=== PATIENT | female | born 2000 | race Caucasian/White ===

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

== ENCOUNTER → 2019-11-11 17:35 | Outpatient (CLI) | payer OTHER, SELFPAY ==
[2019-11-11 13:46] VITALS: BMI 36.5
[2019-11-16 14:53] LABS: HPV Reflexed? NOT INDICATED
== END ==
PROVIDERS: PCP Nurse Practitioner Family; Referring Provider Obstetrics & Gynecology; Visit Provider Obstetrics & Gynecology
DX: Z12.4 Encounter for screening for malignant neoplasm of cervix (principal)
CPT/HCPCS: 88175; G0145

== ENCOUNTER → 2019-11-12 12:44 | Outpatient (CLI) | payer OTHER, SELFPAY ==
[2019-11-11 13:46] VITALS: BMI 36.5
[2019-11-12 13:51] LABS: Estradiol 61.7 pg/mL; Follicle Stimulating Hormone 5.2 mIU/mL
[2019-11-16 14:32] LABS: Testosterone Free 6.7 pg/mL (0.0-4.2)
[2019-11-17 03:18] LABS: 17-Hydroxyprogesterone 65 ng/dL (.)
== END ==
PROVIDERS: PCP Nurse Practitioner Family; Referring Provider Obstetrics & Gynecology; Visit Provider Obstetrics & Gynecology
DX: E28.2 Polycystic ovarian syndrome (principal)
CPT/HCPCS: 36415; 82627; 82670; 83001; 83498; 84402; 82626

== ENCOUNTER → 2022-04-03 | Outpatient (CLI) | payer OTHER, SELFPAY ==
[2022-04-03 11:41] LABS: Hemoglobin A1c 5.1 % (3.8-5.6)
[2022-04-03 11:57] LABS: ALB/GLOB Ratio 0.8 RATIO (0.9-2.4); AST(SGOT) 22 U/L (15-37); Alanine Aminotransfer ALT/SGPT 30 U/L (13-56); Albumin, Serum 3.3 g/dL (3.2-5.0); Alkaline Phosphatase 123 U/L (45-117); Anion Gap 6 (5-15); BUN 11 mg/dL (7-18); BUN/Creat Ratio 12.4 RATIO (10-20); Chloride 105 mmol/L (98-107); Creatinine, Serum 0.89 mg/dL (0.55-1.02); EST Glomerular Filtration Rate 83 mL/min (>60); Est Glom Filt Rate - Afr Amer 100 mL/min (>60); Globulin 4.3 g/dL (2.2-4.2); Glucose 98 mg/dL (74-106); Potassium 3.8 mmol/L (3.5-5.1); Protein, Total 7.6 g/dL (6.4-8.2); Sodium Level 137 mmol/L (136-145)
[2022-04-03 11:58] LABS: Vitamin D,25 Hydroxy 30.8 ng/mL
== END | disposition home or self-care (01) ==
PROVIDERS: Referring Provider Registered Nurse; Visit Provider Registered Nurse
DX: Z13.21 Encounter for screening for nutritional disorder (principal); L68.0 Hirsutism
CPT/HCPCS: 36415; 80053; 82306; 83036

== ENCOUNTER → 2023-04-04 | Outpatient (CLI) | payer OTHER, SELFPAY ==
--- OUTSIDE RECORDS SUMMARY | 2023-04-04 11:21 | XMS RPT_ITS | CCD ---
Author Name Unknown Address [address] [place] [id number] Organization [facility] Results Test Name Value Interpretation Reference Range Facil ity Clinical Note 12-14-2020 Note Date & Type Note Facility 12-14-2020 Note Patient Outreach (MARKIE TNFISH) SE JEFFERS ([id number]) 2000 F Date Time Provider Department 12/14/20 STACY OLIEVR During your visit today, we recorded the following information about you: Stacy Oliver Population Health Navigator 12/14/2020 8:42 AM Signed POPULATION HEALTH NAVIGATION OUTREACH Action/FYI I spoke with mom patient is at [facility] in [place] No care everywhwere Contact made with patient or family member? YES Pt identified by name and : YES Outreach Outcome/Action Spoke to patient or caregiver: PCP confirmed / updated Reason for Outreach Attribution: Provider Off-boarding Payer: Payor: [facility] / Plan: [facility] CHOICE PLUS / Product Type: HMO / Care Gap Reviewed:: Reminder: Reminder note to check Health Maintenance for items below Health Maintenance items due: DEPRESSION SCREENING Never done COVID-19 VACCINE(1) Never done SPIROMETRY Never done GC (GONORRHEA) SCREENING (18-24) Never done HEPATITIS C SCREENING Never done CHLAMYDIA SCREENING (18-24) Never done ONE PNEUMOVAX PRIOR TO AGE 65 Never done ANNUAL PCP TEAM CHRONIC DISEASE VISIT due on 10/10/2020 INFLUENZA(1) due on 12/06/2020 Advanced Directives Completed: Have you ever planned for future healthcare decisions with a power of deputy attorney general, living will, or advance directives? No. Please bring a copy to your next appointment or email to [email or web address] Referrals: N/A Message Sent to Practice: NO Navigation Signature: Stacy Magdaleno Oliver Population Health Navigator December 14, 2020 8:41 AM Allergies As of Date: 12/14/2020 Noted Allergy Reaction BIAXIN (CLARITHROMYCIN) 07/09/2005 2 - Rash MOLD 07/09/2005 3 - Cough Comments: Wheezing/coughing per Mom ANIMAL DANDER 02/18/2012 14 - Other: See Comments Comments: Horses, cows,cats, hamsters, feathered animals DUST 02/18/2012 14 - Other: See Comments IBUPROFEN 07/01/2005 11 - Vomiting PENICILLINS 07/01/2005 2 - Rash TREES 02/18/2012 14 - Other: See Comments HAMSTER PROTEIN 07/09/2005 3 - Cough Comments: Wheezing per Mom Date Reviewed: 10/11/2019 Reviewed by: Radha Hinson - Fully Assessed Reason for Visit: Population Health Navigation Outreach [[id number]] Cmt: Offboarding Prescriptions as of 12/14/2020 - metFORMIN ER (GLUCOPHAGE XR) 500 mg 24 hr tablet Take 2 tablets by mouth daily with breakfast. - MULTI-VITAMIN ORAL Take 1 tablet by mouth once daily. - albuterol (PROVENTIL) 2.5 mg /3 mL (0.083 %) nebulizer solution Use 3 mL via nebulizer every 4 hours as needed for Wheezing/Shortness of Breath. Use over 5-15minutes. - Drospirenone-Ethinyl Estradiol (DIANE, 28,) 3-0.02 mg per tablet Take 1 tablet by mouth once daily. - topiramate (TOPAMAX) 25 mg capsule TAKE 1 CAPSULE EVERY MORNING AND 2 CAPSULES EVERY EVENING - montelukast (SINGULAIR) 10 mg tablet Take 1 tablet by mouth daily at bedtime. - albuterol HFA (PROVENTIL HFA, VENTOLIN HFA) 90 mcg/actuation inhaler Inhale 2 Puffs as instructed every 6 hours as needed for Wheezing/Shortness of Breath. - spironolactone (ALDACTONE) 100 mg tablet Take 100 mg by mouth once daily. 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 Author Type: ? Type: Progress Notes Filed: 12/14/2020 8:42 AM Note Text: POPULATION HEALTH NAVIGATION OUTREACH Action/FYI I spoke with mom patient is at [facility] No care everywhwere Contact made with patient or family member? YES Pt identified by name and : YES Outreach Outcome/Action Spoke to patient or caregiver: PCP confirmed / updated Reason for Outreach Attribution: Provider Off-boarding Payer: Payor: [facility] / Plan: [facility] CHOICE PLUS / Product Type: HMO / Care Gap Reviewed:: Reminder: Reminder note to check Health Maintenance for items below Health Maintenance items due: DEPRESSION SCREENING Never done COVID-19 VACCINE(1) Never done SPIROMETRY Never done GC (GONORRHEA) SCREENING (18-24) Never done HEPATITIS C SCREENING Never done CHLAMYDIA SCREENING (18-24) Never done ONE PNEUMOVAX PRIOR TO AGE 65 Never done ANNUAL PCP TEAM CHRONIC DISEASE VISIT due on 10/10/2020 INFLUENZA(1) due on 12/06/2020 Advanced Directives Completed: Have you ever planned for future healthcare decisions with a power of deputy attorney general, living will, or advance directives? No. Please bring a copy to your next appointment or email to Referrals: N/A Message Sent to Practice: NO Navigation Signature: Stacy Oliver Population Health Navigator December 14, 2020 8:41 AM [facility] Summary Purpose Family History No Family History Records FoundNo Family History Records Found Advance Directives No Advanced Directives Records FoundNo Advanced Directives Records Found Additional Source Comments INFORMATION SOURCE (unrecogn ized section and content) DATE CREATED AUTHOR AUTHOR'S ORGANIZ ATION 05/08/2021 [facility] FOR RECORDS PERTAINING TO PATIENTS WHO ARE OR HAVE BEEN ENROLLED IN A CHEMICAL DEPENDENCY/SUBSTANCEABUSE PROGRAM, SOME INFORMATION MAY BE OMITTED. This clinical summary was aggregated from multiple sources. Caution should be exercised in using it in the provision of clinical care. This summary normalizes information from multiple sources, and as a consequence, information in this document may materially change the coding, format and clinical context of patient data. In addition, data may be omitted in some cases. CLINICAL DECISIONS SHOULD BE BASED ON THE PRIMARY CLINICAL RECORDS. [email or web address] provides no warranty or guarantee of the accuracy or completeness of information in this document.
[2023-04-04 11:59] LABS: Anion Gap 3 (5-15); BUN 16 mg/dL (7-18); BUN/Creat Ratio 16.6 RATIO (10-20); Calcium,Total 9.4 mg/dL (8.5-10.1); Chloride 104 mmol/L (98-107); Creatinine, Serum 0.96 mg/dL (0.55-1.02); EST Glomerular Filtration Rate 75 mL/min (>60); Est Glom Filt Rate - Afr Amer 91 mL/min (>60); Glucose 107 mg/dL (74-106); Potassium 4.7 mmol/L (3.5-5.1); Sodium Level 135 mmol/L (136-145); T4 Free Direct 1.27 ng/dL (0.76-1.46); Thyroid Stim Hormone (TSH) 2.78 uIU/mL (0.358-3.74)
[2023-04-10 19:48] LABS: HPV Reflexed? NOT INDICATED
== END | disposition home or self-care (01) ==
PROVIDERS: Referring Provider Registered Nurse; Visit Provider Registered Nurse
DX: Z12.4 Encounter for screening for malignant neoplasm of cervix (principal); E66.9 Obesity, unspecified; L68.0 Hirsutism
CPT/HCPCS: 36415; 80048; 84439; 84443; 88175; G0145

== ENCOUNTER 2025-03-30 09:10 | Emergency (ER) | payer OTHER, SELFPAY ==
[2025-03-30] VITALS (7 sets, daily range): BP systolic 101–147; BP diastolic 72–86; PULSE 84–142; RESP 16–27; TEMP 36.8–37.6; O2SAT 96–98; BMI 46.3
--- NOTE | 2025-03-30 09:24 | EKG12_ITS ---
Test Reason : Blood Pressure : */* mmHG Vent. Rate : 107 BPM Atrial Rate : 107 BPM P-R Int : 138 ms QRS Dur : 66 ms QT Int : 326 ms P-R-T Axes : 43 24 -56 degrees QTcB Int : 435 ms Sinus tachycardia Nonspecific T wave abnormality Abnormal ECG Confirmed by Blake Mcgrath ([id number]), editor continuity and script FINESSE DOMINGUEZ ([id number]) on 04/01/2025 8:03:57 AM Referred By: Confirmed By: Blake Mcgrath
--- NOTE | 2025-03-30 09:25 | EX.ED.DYSGE1 ---
HPI History of Present Illness Chief Complaint: Fever Narrative Narrative: Patient is a 25-year-old female presenting to the emergency department for fever. She has past medical history of Hodgkin's lymphoma and last received chemotherapy on 03/16. She follows with Dr. Aguirre oncology. She states that 2 days ago in the evening she developed a dry cough and headache. She states that she went to urgent care yesterday and was tested positive for influenza A and started on Tamiflu. She has had 2 doses of that. She states this morning she woke up and had a fever of 101.2. She did not take any medications prior to arrival. She called her oncologist office and they recommended she come to the ED. [facility] Medical History Encounter for monitoring cardiotoxic drug therapy Alopecia CINV (chemotherapy-induced nausea and vomiting) Encounter for chemotherapy management Acne Asthma Dyslipidemia Prediabetes Migraine headache Other specified complication of vascular prosthetic devices, implants and grafts, initial encounter Hodgkin lymphoma Anxiety and depression pre diabetic history of anxiety and depression Home Medications ?Medication ?Instructions ?Recorded ?Last Taken ?Type loratadine 10 mg capsule 10 mg PO DAILY 04/03/21 Unknown History spironolactone 100 mg tablet 200 mg (2 x 100 mg) PO QDAY #60 12/25/23 Unknown Rx tabs etonogestrel 0.12 mg-ethinyl 1 vag ring vaginal ONCE 3 weeks #3 03/29/24 Unknown Rx estradiol 0.015 mg/24 hr vaginal ea ring (NuvaRing) alprazolam 0.25 mg tablet (Xanax) 0.25 mg PO QDAY PRN 11/17/24 Unknown History topiramate 100 mg tablet 100 mg PO QDAY 11/17/24 Unknown History lidocaine-prilocaine 2.5 %-2.5 % 1 applic topical ONCE PRN port 12/02/24 Unknown Rx topical cream access 30 days #30 grams albuterol sulfate 90 mcg/actuation 2 puff inhalation Q6H PRN 12/22/24 Unknown History aerosol inhaler (Ventolin HFA) MAGIC MOUTH WASH (BMX) 180 mL 15 ml PO .Q6HR #180 mL 12/27/24 Unknown Rx suspension omeprazole 20 mg capsule,delayed 20 mg PO QDAY 01/05/25 Unknown History release ondansetron 8 mg disintegrating 8 mg PO Q8H PRN nausea and 01/19/25 Unknown Rx tablet vomiting #30 tabs oseltamivir 75 mg capsule 75 mg PO BID 5 days #10 caps 03/29/25 Unknown Rx Allergy/AdvReac Type Severity Reaction Status Date / Time ibuprofen Allergy Nausea Verified 03/30/25 09:11 Penicillins (PCN) Allergy Rash Verified 03/30/25 09:11 Family History Grandfather Diabetes Grandmother Cancer Lung, smoker. 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 No acute distress. Well appearing, nontoxic. HEENT: Head is normocephalic and atraumatic, sinuses nontender, pupils equal round and reactive. Nares are patent. Oropharynx and throat exams normal. Moist mucous membranes. Posterior oropharynx is nonerythematous with no swelling. No exudate. Neck: Supple without lymphadenopathy nontender Cardiovascular: Tachycardic rate and regular rhythm, no murmurs. No rubs or gallops. Normal S1 and S2 Respiratory: Clear to auscultation bilaterally. No wheezes, rales, rhonchi Abdominal: Soft and nontender. Normal bowel sounds. No guarding or rebound. Nonsurgical abdomen Extremities: No lower extremity edema. No tenderness. No bruising. Normal range of motion. Normal sensation. Skin: No rash or redness. The rest of the physical exam is unremarkable Const Vital Signs: 03/30/25 09:11 03/30/25 09:13 03/30/25 09:45 Temperature 99.2 F H 99.2 F H Temperature Source Oral Oral Pulse Rate 142 H 109 H Respiratory Rate 20 H 23 H Respiratory Effort Normal Non-Labored Respiratory Pattern Normal Blood Pressure 147/86 H 132/78 H Blood Pressure Mean 106 96 Pulse Ox 98 96 Oxygen Delivery Method Room Air Room Air 03/30/25 10:13 03/30/25 11:00 03/30/25 12:00 Temperature 99.7 F H 99.7 F H 98.2 F Temperature Source Oral Oral Oral Pulse Rate 90 94 84 Respiratory Rate 27 H 16 19 H Respiratory Effort Respiratory Pattern Blood Pressure 101/72 101/72 114/76 Blood Pressure Mean 81 81 88 Pulse Ox 96 97 96 Oxygen Delivery Method Room Air Room Air Room Air 03/30/25 12:15 Temperature 98.2 F Temperature Source Pulse Rate 84 Respiratory Rate 19 H Respiratory Effort Respiratory Pattern Blood Pressure 114/76 Blood Pressure Mean 88 Pulse Ox 96 Oxygen Delivery Method MDM MDM MDM Narrative Medical decision making narrative: Patient is a 25-year-old female presenting to the emergency department for a fever. Patient was seen and examined. She is tachycardic on arrival to 142. RR of 20. BP of 147/86, borderline febrile at 99.2. She is saturating 98% on RA. Patient is influenza A positive however given her immunocompromise status will obtain chest x-ray to rule out a secondary superimposed pneumonia. Will also obtain lab work to evaluate for any neutropenia. Will obtain a lactate and blood cultures as well given her initial vital signs. EKG shows sinus tachycardia at a rate of 107. There is nonspecific T wave abnormalities. No ST elevation or depression. No dysrhythmia. CBC with leukopenia which has been previously seen at 2.8 and normal hemoglobin. Absolute neutrophil count of 1.2 which is actually improved from her baseline. BMP with bicarb of 19.2 otherwise no significant abnormalities. Lactic within normal limits. Urine negative. Chest x-ray reviewed by myself and shows no evidence of opacities, pneumothorax or widened mediastinum. Radiology read in agreement. Urinalysis with no evidence of infection. Urine negative. Patient's heart rate after fluid bolus down in the 80s. She is feeling improved after Tylenol. Spoke with BUDDY Esparza for [facility]. We discussed the patients presentation and labs/imaging and she is reassured by her ANC given she would be at her dony at this time from last chemo. We discussed abx however we have a clear source of infection the influenza A at this time and we agree we do not think abx are necessary at this time. She recommended follow-up with primary care doctor as soon as possible and strict return precautions. Discussed all of the labs, imaging and discussion with the patient and mother at bedside. They feel comfortable with the plan. Patient discharged from the Emergency Department. I do not feel that the patient's evaluation reveals any acute reason for admission at this time. I instructed them to either follow-up with their primary care physician or promptly return to the Emergency Department for reevaluation should symptoms worsen or new symptoms develop. I explained what symptoms would indicate the need to return to the emergency department. Shared decision making was used. The patient voiced understanding of the treatment plan and is agreeable with it. Clinical impression: Influenza A positive History & Record Review Discussion w/independent historian: Patient and Family Additional record(s) reviewed:: Prior labs Lab Data Attestation: I reviewed the patient's lab results. Labs: Laboratory Results - last 24 hr 03/30/25 03/30/25 03/30/25 09:34 09:39 11:20 WBC 2.8 L RBC 4.78 Hgb 14.6 Hct 42.9 MCV 89.7 MCH 30.5 MCHC 34.0 RDW Std Deviation 48.6 H RDW Coeff of Anayeli 14.7 H Plt Count 346 MPV 9.7 Immature Gran % (Auto) 0.000 Neut % (Auto) 43.9 L Lymph % (Auto) 29.5 Republic % (Auto) 25.5 H Eos % (Auto) 0.4 Baso % (Auto) 0.7 Absolute Neuts (auto) 1.2 L Absolute Lymphs (auto) 0.82 L Nucleated RBC % 0 Sodium 135 Potassium 3.7 Chloride 101 Carbon Dioxide 19.2 L Anion Gap 14 BUN 10 Creatinine 0.97 Estim Creat Clear Calc 108.43 Est GFR (MDRD) Non-Af 82 BUN/Creatinine Ratio 10.1 Glucose 144 H Lactic Acid 1.1 Calcium 9.1 Urine Color Yellow Urine Clarity Clear Urine pH 6.5 Ur Specific Raymond 1.010 Urine Protein 15 H Urine Glucose (UA) Normal Urine Ketones Negative Urine Occult Blood Negative Urine Nitrite Negative Urine Bilirubin Negative Urine Urobilinogen Normal Ur Leukocyte Esterase Negative Urine RBC 0 SEEN Urine WBC 0 SEEN Ur Squamous Epith Cells 0 SEEN Urine Bacteria 0 SEEN Urine Mucus 0 SEEN Urine Test Negative Radiography Chest X-Ray - ED: 2 View, Read by ED Physician, Normal, No Acute Disease and No Infiltrates Diagnostic Testing: Clinical Impression(s) from Imaging Studies Chest X-Ray 03/30/25 10:02 IMPRESSION: No active cardiopulmonary disease. Reading Location: [place] [address] Discharge Plan Triage Chief Complaint: Fever ED Provider: Staci Miles Dx/Rx/DC Orders Clinical Impression: Influenza A, Hodgkin lymphoma Instructions: ED Influenza (Adult) Prescriptions: No Action loratadine 10 mg capsule 10 mg PO DAILY etonogestrel-ethinyl estradiol [NuvaRing] 0.12-0.015 mg/24 hr ring 1 vag ring VAGINAL ONCE 21 Days Qty: 3 5RF topiramate 100 mg tablet 100 mg PO QDAY alprazolam [Xanax] 0.25 mg tablet 0.25 mg PO QDAY PRN albuterol sulfate [Ventolin HFA] 90 mcg/actuation HFA aerosol inhaler 2 puff inhalation Q6H PRN omeprazole 20 mg capsule,delayed release(DR/EC) 20 mg PO QDAY ondansetron 8 mg tablet,disintegrating 8 mg PO Q8H PRN (Reason: nausea and vomiting) Qty: 30 2RF oseltamivir 75 mg capsule 75 mg PO BID 5 Days Qty: 10 0RF spironolactone 100 mg tablet 200 mg PO QDAY Qty: 60 3RF lidocaine-prilocaine 2.5-2.5 % cream 1 applic topical ONCE PRN (Reason: port access) 30 Days Qty: 30 2RF MAGIC MOUTH WASH (BMX) 180 mL suspension 15 ml PO .Q6HR Qty: 180 2RF Rx Instructions: diphenhydramine 12.5 mg/5 mL oral liquid 60 mL; aluminum-mag hydroxide-simethicone 400 mg-400 mg-40 mg/5 mL oral susp 60 mL; Lidocaine Viscous 2 % mucosal solution 60 mL; Per 180 mL Primary Care Provider: Ankita Mendosa [facility] Referrals: Candice Aguirre MD [Med Staff - Active Staff, Oncology] - As soon as possible Javier Carson MD [Med Staff - Active Staff, Family Practice] - As soon as possible Care Physician,No Primary [Non-Staff, Medical] Activity Restrictions/Additional Instructions: Continue taking the Tamiflu as prescribed. You can take Tylenol or Motrin for symptomatic control. If you have any new or worsening symptoms as discussed need to return to the emergency department immediately. Follow-up with your primary care doctor or the 1 listed below as soon as possible. Please follow-up at your appointments that are already scheduled with your oncologist. Your evaluation in the Emergency Department did not reveal any acute reason for admission. However, I want to emphasize that you may be early in the course of a disease process or illness even if it is not present. For this reason you should follow-up within 24 hours for reevaluation with either your primary care physician or if necessary back here in the Emergency Department. You should return to the Emergency Department immediately if your symptoms worsen or new symptoms develop. Print Language: Azerbaijani Disposition Disposition: Home, Self Care
[2025-03-30 09:54] LABS: Hematocrit 42.9 % (37-47); Hemoglobin 14.6 g/dL (12.0-15.0); Immature Granulocytes Count 0.000 X10^3/uL (0.0-0.0); Mean Corp Hgb Conc 34.0 g/dL (32-36); Mean Corpuscular Volume 89.7 fL (81-99); Mean Platelet Vol. 9.7 fl (6.2-12.0); NRBC Flagged by Analyzer 0 % (0-5); Platelet Count 346 K/mm3 (150-450); RBC Distribution Width CV 14.7 % (11.6-14.6); RBC Distribution Width SD 48.6 fl (35.1-43.9); Red Blood Count 4.78 M/mm3 (4.2-5.4); White Blood Count 2.8 K/mm3 (4.4-11.0)
[2025-03-30] MEDS: 0.9% Normal Saline (1000mL) 1,000 ML 1000 ML IV (09:54)
[2025-03-30 09:57] LABS: Internal QC Validated? YES +Cl - CLEAR BKGD; Pregnancy, Urine Negative Negative
--- NOTE | 2025-03-30 10:02 | RAD_ITS ---
PROCEDURE: CHEST PA AND LATERAL 03/30/2025 REASON FOR EXAM: CHEST CONGESTION, FEVER TECHNIQUE: Procedure Code: RADCXR Modality: DX Procedure: CHEST PA AND LATERAL COMPARISON: No relevant prior. FINDINGS: Lungs: Lungs clear of pneumonia and congestion. Pleura: No pleural effusions, thickening, or pneumothorax. Heart: Normal in size and configuration. Mediastinum/Gemini: Unremarkable. Great vessels: Unremarkable. Bones/soft tissues: A right-sided Port-A-Cath. Cardiac monitoring leads overlie the chest wall. RAD/Chest PA and Lateral IMPRESSION: No active cardiopulmonary disease. Reading Location: [place] [address]
[2025-03-30 10:09] LABS: Anion Gap 14 (7-18); BUN 10 mg/dL (4-19); BUN/Creat Ratio 10.1 RATIO (10-20); Calcium,Total 9.1 mg/dL (7.6-11.0); Carbon Dioxide 19.2 mmol/L (20.0-29.0); Chloride 101 mmol/L (96-106); Estimated Creatinine Clearance 108.43 ml/min (50-250); Glucose 144 mg/dL (70-99); Potassium 3.7 mmol/L (3.5-5.1)
--- OUTSIDE RECORDS SUMMARY | 2025-03-30 10:39 | XMS RPT_ITS | CCD ---
Author Organization [facility]iniSy[facility] Care Team Providers Care Creative Resource Manager Name Role Phone Mikael LOAN SERVICES PROFESSIONAL, LOAN SERVICES PROFESSIONAL-C Fe Attending Provider HUSSAIN Marroquin Attending Provider [phone] HUSSAIN Marroquin Attending Provider Care Physician, No Primary Primary Care Provider Unavailable Care Physician, No Primary Referring Provider Un available Dr. Candice Aguirre MD Attending Provider Dr. Candice Aguirre MD Referring Provider Clifford LOAN SERVICES PROFESSIONAL-C, Christy Attending Provider Dr. Candice Aguirre MD Referring Provider Care Physician, No Primary Primary Care Physicia n Unavailable Dr. Candice Aguirre MD Attending Physician Clifford LOAN SERVICES PROFESSIONAL-C, Christy Attending Physician Dr. Candice Aguirre MD Referring Provider Dr. Candice Aguirre MD Referring Provider Dr. Candice Aguirre MD Referring Provider Care Physician, No Primary Referring Unava ilable Care Physician, No Primary Primary Care Unava ilable Clifford LOAN SERVICES PROFESSIONAL, Christy Attending Unavailable Care Physician, No Primary Primary Care Unava ilable Clifford LOAN SERVICES PROFESSIONAL, Christy Attending Unavailable Care Physician, No Primary Referring Unava ilable Candice Aguirre Attending Unavailable Candice Aguirre Referring Unavailable Care Physician, No Primary Primary Care Unava ilable Candice Aguirre Attending Unavailable Care Physician, No Primary Primary Care Unava ilable Care Physician, No Primary Referring Unava ilable Care Physician, No Primary Primary Care Unava ilable Clifford LOAN SERVICES PROFESSIONAL, Christy Attending Unavailable Care Physician, No Primary Referring Unava ilable Candice Aguirre Attending Unavailable Care Physician, No Primary Primary Care Unava ilable Care Physician, No Primary Referring Unava ilable Care Physician, No Primary Primary Care Unava ilable Care Physician, No Primary Referring Unava ilable Clifford LOAN SERVICES PROFESSIONAL, Christy Attending Unavailable Care Physician, No Primary Referring Unava ilable Care Physician, No Primary Primary Care Unava ilable Jojo Bishop Attending Unavailable Care Physician, No Primary Referring Unava ilable Candice Aguirre Attending Unavailable Care Physician, No Primary Primary Care Unava ilable Allergies Allergy Classification Reported Allergen(s) Allergy Type Date of Onset Reaction(s) Facility (8 sources) Ibuprofen Drug Allergy 04-03-2021 Nausea [facility] (9 sources) Penicillins; Translations: [Penicillins] Allergy to substance 04-03-2021 Rash [facility] (1 source) Ibuprofen Drug Allergy 02-16-2025 [facility] Repository Medications Current Medications Medication Drug Class(es) Dates Sig (Normalized) Sig (Original) [id number] 200 actuat albuterol 0.09 mg/actuat metered dose inhaler (11 sources) beta2-Adrenergic Agonist Start: 12-22-2024 Albuterol Sulfate (Ventolin Hfa) 90 mcg/actuation HFA aerosol inhaler Active 2 NMA INHALATION EVERY 6 HOURS as needed December 22, 2024 12:00am Complies with drug therapy Start: 12-03-2015 End: 10-30-2018 Albuterol Sulfate 1 INHALER inhaler Discontinued 1 NMA INHALATION EVERY 6 HOURS NEEDED as needed for Wheezing December 03, 2015 12:00am October 30, 2018 11:00am Start: 12-03-2015 End: 10-30-2018 take 1 puff(s) by inhalation every six hours as needed Albuterol Sulfate Discontinued 1 PUFF INHALATION EVERY 6 HOURS NEEDED December 02, 2015 11:00pm October 30, 2018 10:00am ALPRAZolam 0.25 mg oral tablet (5 sources) Benzodiazepine Start: 11-17-2024 take 1 tablet by mouth once daily as needed Alprazolam (Xanax) 0.25 mg tablet Active 0.25 mg PO daily as needed November 17, 2024 12:00am Complies with drug therapy lidocaine 25 mg/ml / prilocaine 25 mg/ml topical cream (4 sources) Antiarrhythmic, Amide Local Anesthetic Start: 12-02-2024 Lidocaine-Priloca ine 2.5-2.5 % cream Active 1 NMA TOPICAL ONCE as needed for port access 30 30 2 December 02, 2024 12:00am Hodgkin lymphoma Hodgkin lymphoma, unspecified, lymph nodes of multiple sites Complies with drug therapy Start: 12-02-2024 Lidocaine-Pril ocaine 2.5-2.5 % cream Active 1 NMA TOPICAL ONCE as needed for port access 30 December 02, 2024 12:00am Hodgkin lymphoma Hodgkin lymphoma, unspecified, lymph nodes of multiple sites loratadine 10 mg oral capsule (8 sources) Start: 04-03-2021 take 1 capsule by mouth once daily Loratadine 10 mg capsule Active 10 mg PO DAILY April 03, 2021 1:00am Complies with drug therapy Magic Mouth Wash (Bmx) 180 mL suspension (2 sources) Start: 12-27-2024 Magic Mouth Wa sh (Bmx) 180 mL suspension Active 15 mL PO .Q6HR 180 2 December 27, 2024 12:00am Stomatitis Hodgkin lymphoma Other forms of stomatitis Hodgkin lymphoma, unspecified, lymph nodes of multiple sites diphenhydramine 12.5 mg/5 mL oral liquid 60 mL; aluminum-mag hydroxide-simethicone 400 mg-400 mg-40 mg/5 mL oral susp 60 mL; Lidocaine Viscous 2 % mucosal solution 60 mL; Per 180 mL Complies with drug therapy Start: 12-27-2024 omeprazole 20 mg delayed release oral capsule (2 sources) Proton Pump Inhibitor Start: 01-05-2025 take 1 capsule by mouth once daily Omeprazole 20 mg capsule,delayed release(DR/EC) Active 20 mg PO daily January 05, 2025 12:00am Complies with drug therapy ondansetron 8 mg disintegrating oral tablet (14 sources) Serotonin-3 Receptor Antagonist Start: 01-19-2025 take 1 tablet by mouth every eight hours as needed for nausea and vomiting Ondansetron 8 mg tablet,disintegrating Active 8 mg PO Q8H as needed for nausea and vomiting 30 January 19, 2025 12:00am Chemotherapy-induced nausea and vomiting Hodgkin lymphoma Nausea with vomiting, unspecified Adverse effect of antineoplastic and immunosuppressive drugs, initial encounter Hodgkin lymphoma, unspecified, lymph nodes of multiple sites Complies with drug therapy Start: 11-17-2024 End: 01-19-2025 take 1 tablet by mouth every eight hours as needed Ondansetron 4 mg tablet,disintegrating Discontinued 4 mg PO Q8H as needed November 17, 2024 12:00am January 19, 2025 9:52am Start: 12-03-2015 End: 11-19-2017 take 1 tablet by mouth every eight hours as needed for nausea Ondansetron 4 MG tablet Discontinued 4 m g PO EVERY 8 HOURS NEEDED as needed for Nausea December 03, 2015 12:00am November 19, 2017 11:00am spironolactone 100 mg oral tablet (20 sources) Aldosterone Antagonist Start: 12-18-2023 End: 12-25-2023 take 2 tablets by mouth once daily Spironolactone 100 mg tablet Active 200 mg PO daily 60 3 December 25, 2023 11:53am Complies with drug therapy Start: 04-04-2023 End: 12-18-2023 take 4 tablets by mouth once daily Spironolactone 50 mg tablet Discontinued 200 mg PO DAILY 120 July 28, 2023 5:15pm December 18, 2023 11:56am Start: 04-04-2023 take 200 mg by mouth once daily Spironolactone Active 200 MG PO DAILY 120 April 04, 2023 10:27am Start: 04-03-2021 End: 04-04-2023 take 3 tablets by mouth once daily Spironolactone 50 mg tablet Discontinued 150 mg PO DAILY 90 April 03, 2022 11:41am April 04, 2023 11:29am Start: 04-03-2021 End: 04-04-2023 take 150 mg by mouth once daily Spironolactone Discontinued 150 MG PO DAILY 90 April 03, 2022 10:41am April 04, 2023 10:29am Start: 11-11-2019 End: 04-03-2021 take 1 tablet by mouth twice daily Spironolactone 50 mg tablet Discontinued 50 mg PO TWICE A DAY 60 November 11, 2019 3:01pm April 03, 2021 2:14pm Start: 11-11-2019 End: 11-11-2019 take 2 tablets by mouth twice daily Spironolactone 25 mg tablet Discontinued 50 mg PO TWICE A DAY November 11, 2019 3:00pm November 11, 2019 3:02pm Start: 11-11-2019 End: 11-11-2019 take 50 mg by mouth twice daily Spironolactone Discontinued 50 MG PO TWICE A DAY November 11, 2019 2:00pm November 11, 2019 2:02pm Start: 12-03-2015 End: 11-11-2019 take 1 tablet by mouth once daily Spironolactone 25 MG tablet Discontinued 25 mg PO DAILY December 03, 2015 12:00am November 11, 2019 3:01pm topiramate 100 mg oral tablet (20 sources) Start: 11-17-2024 take 1 tablet by mouth once daily Topiramate 100 mg tablet Active 100 mg PO daily November 17, 2024 12:00am Complies with drug therapy Start: 04-04-2023 End: 11-17-2024 take 3 tablets by mouth once daily Topiramate (Topamax) 25 mg tablet Discontinued 75 mg PO DAILY 120 April 04, 2023 1:00am November 17, 2024 8:13am Start: 10-30-2018 End: 11-17-2024 take 5 capsules by mouth once daily Topiramate (Topamax) 15 mg capsule, sprinkle Discontinued 75 mg PO DAILY October 30, 2018 12:00am November 17, 2024 8:13am Start: 12-03-2015 End: 10-30-2018 take 1 tablet by mouth twice daily Topiramate 50 MG tablet Discontinued 50 mg PO TWICE A DAY December 03, 2015 12:00am October 30, 2018 11:00am Completed/Discontinued Medications Medication Drug Class(es) Dates Sig (Normalized) Sig (Original) adapalene 0.003 mg/mg / benzoyl peroxide 0.025 mg/mg topical gel (8 sources) Retinoid Start: 11-19-2017 End: 10-30-2018 Adapalene-Benzoyl Peroxide (Epiduo Forte) 0.3-2.5 % gel with pump Discontinued 1 NMA TOPICAL daily November 19, 2017 12:00am October 30, 2018 11:00am Start: 11-19-2017 End: 10-30-2018 Adapalene-Benzoyl Peroxide ( Epiduo Forte) 0.3-2.5 % gel with pump Discontinued 1 APPLIC TOPICAL daily November 18, 2017 11:00pm October 30, 2018 10:00am clobetasol propionate 0.0005 mg/mg topical ointment (5 sources) Corticosteroid Start: 03-29-2024 End: 04-05-2024 Clobetasol 0.05 % ointment Discontinued 1 NMA TOPICAL TWICE A DAY 30 7 0 March 29, 2024 1:00am April 04, 2024 1:00am April 05, 2024 1:09am dicyclomine hydrochloride 10 mg oral capsule (8 sources) Anticholinergic Start: 12-03-2015 End: 11-19-2017 take 2 capsules by mouth three times daily before mealtime Dicyclomine 10 MG capsule Discontinued 20 mg PO THREE TIMES DAILY BEFORE MEALS 20 0 December 03, 2015 12:00am November 19, 2017 11:00am Start: 12-03-2015 End: 11-19-2017 take 20 mg by mouth three times daily before mealtime Dicyclomine Discontinued 20 MG PO THREE TIMES DAILY BEFORE MEALS 20 December 02, 2015 11:00pm November 19, 2017 10:00am Drospirenone-Ethinyl Estradiol (20 sources) Progestin, Estrogen Start: 10-30-2018 End: 11-11-2019 Drospirenone-Ethinyl Estradiol (Ocella) 3-0.03 mg tablet Discontinued 1 TABLET PO DAILY 84 October 30, 2018 11:09am November 11, 2019 3:01pm Start: 10-30-2018 End: 11-11-2019 take 3 tablets by mouth once daily Drospirenone-Ethinyl Estradiol (Ocella) 3-0.03 mg tablet Discontinued 1 {tbl} PO DAILY 84 4 October 30, 2018 12:00am November 11, 2019 3:01pm Start: 10-30-2018 End: 11-11-2019 Drospirenone-Ethinyl Estradi ol (Ocella) 3-0.03 mg tablet Discontinued 1 TABLET PO DAILY 84 October 29, 2018 11:00pm November 11, 2019 2:01pm Start: 09-14-2018 End: 10-30-2018 take 3 tablets by mouth once daily Drospirenone-Ethinyl Estradiol (Loryna (28)) 3-0.02 mg tablet Discontinued 1 {tbl} PO daily 84 0 September 14, 2018 3:26pm October 30, 2018 11:08am Start: 09-14-2018 End: 10-30-2018 Drospirenone-Ethinyl Estradi ol (Loryna (28)) 3-0.02 mg tablet Discontinued 1 TABLET PO daily 84 September 14, 2018 2:26pm October 30, 2018 10:08am Start: 09-14-2018 End: 10-30-2018 Drospirenone-Ethinyl Estradi ol (Loryna (28)) 3-0.02 mg tablet Discontinued 1 TABLET PO daily 84 September 14, 2018 3:26pm October 30, 2018 11:08am Start: 11-19-2017 End: 09-14-2018 take 3 tablets by mouth once daily Drospirenone-Ethinyl Estradiol (Loryna (28)) 3-0.02 mg tablet Discontinued 1 {tbl} PO daily 84 4 November 19, 2017 11:47am September 14, 2018 3:27pm Start: 11-19-2017 End: 09-14-2018 Drospirenone-Ethinyl Estradi ol (Loryna (28)) 3-0.02 mg tablet Discontinued 1 TABLET PO daily November 19, 2017 10:47am September 14, 2018 2:27pm Start: 11-19-2017 End: 09-14-2018 Drospirenone-Ethinyl Estradi ol (Loryna (28)) 3-0.02 mg tablet Discontinued 1 TABLET PO daily 84 November 19, 2017 11:47am September 14, 2018 3:27pm Start: 09-17-2017 End: 11-19-2017 Drospirenone-Ethinyl Estradi ol (Loryna (28)) 3-0.02 mg tablet Discontinued 1 TABLET PO daily September 17, 2017 4:01am November 19, 2017 11:48am Start: 09-17-2017 End: 11-19-2017 take 3 tablets by mouth once daily Drospirenone-Ethinyl Estradiol (Loryna (28)) 3-0.02 mg tablet Discontinued 1 {tbl} PO daily 84 September 17, 2017 12:00am November 19, 2017 11:48am Start: 09-17-2017 End: 11-19-2017 Drospirenone-Ethinyl Estradi ol (Loryna (28)) 3-0.02 mg tablet Discontinued 1 TABLET PO daily September 16, 2017 11:00pm November 19, 2017 10:48am 21 day ethinyl estradiol 0.850471 mg/hr / etonogestrel 0.005 mg/hr vaginal system (20 sources) Progestin, Estrogen Start: 11-11-2019 End: 03-29-2024 Etonogestrel-Ethinyl Estradiol (Nuvaring) 0.12-0.015 mg/24 hr ring Discontinued 1 NMA VAGINAL ONCE 3 26 07January 15, 2023 7:52am March 29, 2024 9:40am Start: 11-11-2019 End: 01-15-2023 Etonogestrel-Ethinyl Estradi ol (Nuvaring) 0.12-0.015 mg/24 hr ring Active 1 VAG RING VAGINAL ONCE 06 25April 04, 2023 10:27am famotidine 20 mg oral tablet (5 sources) Histamine-2 Receptor Antagonist Start: 11-17-2024 End: 01-05-2025 take 1 tablet by mouth once daily Famotidine (Pepcid) 20 mg tablet Discontinued 20 mg PO daily November 17, 2024 12:00am January 05, 2025 9:34am 24 hr metFORMIN hydrochloride 500 mg extended release oral tablet (20 sources) Biguanide Start: 04-03-2021 End: 03-29-2024 take 1 tablet by mouth once daily Metformin 500 mg tablet extended release 24 hr Discontinued 500 mg PO DAILY April 03, 2022 11:41am March 29, 2024 9:30am Start: 11-11-2019 End: 04-03-2021 take 1 tablet by mouth twice daily Metformin 500 mg tablet Discontinued 500 mg PO TWICE A DAY November 11, 2019 12:00am April 03, 2021 2:14pm Start: 12-03-2015 End: 10-30-2018 take 2 tablets by mouth twice daily Metformin 500 MG tablet Discontinued 1000 mg PO TWICE A DAY December 03, 2015 12:00am October 30, 2018 11:00am Start: 12-03-2015 End: 10-30-2018 take 1000 mg by mouth twice daily Metformin Discontinued 1000 MG PO TWICE A DAY December 02, 2015 11:00pm October 30, 2018 10:00am montelukast 10 mg oral tablet (8 sources) Leukotriene Receptor Antagonist Start: 12-03-2015 End: 04-03-2021 take 1 tablet by mouth once daily Montelukast 10 MG tablet Discontinued 10 mg PO DAILY December 03, 2015 12:00am April 03, 2021 2:13pm nystatin 100 unt/mg topical ointment (5 sources) Polyene Antifungal Start: 03-29-2024 End: 04-05-2024 Nystatin 100,000 unit/gram ointment Discontinued 1 NMA TOPICAL daily 30 7 0 March 29, 2024 1:00am April 04, 2024 1:00am April 05, 2024 1:09am Problems Active Problems Problem Classification Problem Date Documented Date Episodic/Chronic Asthma (5 sources) Asthma; Translations: [Unspecified asthma, uncomplicated] 11-17-2024 Chronic Complication of device; implant or graft (5 sources) Disorder of cardiovascular prostheses and implants; Translations: [Other specified complication of vascular prosthetic devices, implants and grafts, initial encounter] 11-17-2024 Chronic Contraceptive and procreative management (8 sources) Oral contraception; Translations: [Encounter for surveillance of contraceptive pills] 11-11-2019 Episodic Diabetes mellitus without complication (5 sources) Prediabetes; Translations: [Prediabetes] 11-17-2024 Episodic Disorders of lipid metabolism (5 sources) Dyslipidemia; Translations: [Hyperlipidemia, unspecified] 11-17-2024 Chronic E Codes: Adverse effects of medical drugs (1 source) Adverse effect of antineoplastic and immunosuppressive drugs, initial encounter; Translations: [Adverse effect of antineoplastic and immunosuppressive drugs, initial encounter] Onset: 01-19-2025 Episodic Headache; including migraine (5 sources) Migraine; Translations: [Migraine, unspecified, not intractable, without status migrainosus] 11-17-2024 Chronic Hodgkin`s disease (20 sources) Hodgkin's disease (clinical); Translations: [Hodgkin lymphoma, unspecified, unspecified site] Onset: 12-02-2024 11-17-2024 Chronic Hodgkin`s disease (6 sources) Hodgkin`s disease Maintenance chemotherapy; radiotherapy (13 sources) Patient encounter status; Translations: [Encounter for antineoplastic chemotherapy] Onset: 02-16-2025 12-08-2024 Chronic Mycoses (5 sources) Candidiasis of skin; Translations: [Candidiasis of skin and nail] 03-29-2024 Episodic Nausea and vomiting (2 sources) Chemotherapy-induced nausea and vomiting; Translations: [Nausea with vomiting, unspecified] Onset: 01-19-2025 01-19-2025 Episodic Other endocrine disorders (8 sources) Polycystic ovary syndrome; Translations: [Polycystic ovarian syndrome] 11-11-2019 Chronic Comment on above: Continue nuvaring, c ontinue spironolactone Other endocrine disorders (2 sources) Polycystic ovarian syndrome; Translations: [Polycystic ovaries] Chronic Other nutritional; endocrine; and metabolic disorders (8 sources) Obesity; Translations: [Obesity, unspecified] 04-04-2023 Chronic Comment on above: Currently using noom with good outcomes. Other nutritional; endocrine; and metabolic disorders (3 sources) Obesity, unspecified; Translations: [Obesity, unspecified] Chronic Other skin disorders (8 sources) Hirsutism; Translations: [Hirsutism] 04-04-2023 Episodic Comment on above: spironolactone incre ased to 200mg, BMP obtained. nuvaring. Other skin disorders (3 sources) Hirsutism; Translations: [Hirsutism] Episodic Other skin disorders (5 sources) Acne; Translations: [Acne, unspecified] 11-17-2024 Episodic Past or Other Problems Problem Classification Problem Date Documented Da te Episodic/Chronic Mood disorders (7 sources) Mood disorders 11-01-2021 Unclassified (7 sources) pre diabetic 11-01-2021 Results Test Name Value Interpretation Reference Range Facility CBC W/Diff, Automatedon 02-05 REACTIVE LYMPH RARE Normal [facility] Comment on above: Performed By: #### L 100.0100, L500.4050 #### [facility] [address] [place], [address] Comprehensive Metabolic Prof ilon 02-16-2025 Albumin [Mass/Vol] 3.9 g/dL Normal 3.5-5.0 [facility] Comment on above: Performed By: #### L 100.0100, L500.4050 #### [facility] [address] [place], [address] Albumin/Globulin [Mass ratio] 1.4 {ratio} Normal 0.9-2.4 [facility] Comment on above: Performed By: #### L 100.0100, L500.4050 #### [facility] [address] [place], [address] ALK PHOS 96 U/L Normal 35-104 [facility] Comment on above: Performed By: #### L 100.0100, L500.4050 #### [facility] [address] [place], [address] ALT [Catalytic activity/Vol] 22 U/L Normal <=34 [facility] Comment on above: Performed By: #### L 100.0100, L500.4050 #### [facility] [address] [place], [address] AST [Catalytic activity/Vol] 24 U/L Normal <=31 [facility] Comment on above: Performed By: #### L 100.0100, L500.4050 #### [facility] [address] [place], [address] Bilirubin [Mass/Vol] 0.27 mg/dL Normal 0.00-1.30 [facility] Comment on above: Performed By: #### L 100.0100, L500.4050 #### [facility] [address] [place], [address] BUN/CRE 12.9 RATIO Normal 10-20 [facility] Comment on above: Performed By: #### L 100.0100, L500.4050 #### [facility] [address] [place], [address] Calcium [Mass/Vol] 9.4 mg/dL Normal 7.6-11.0 [facility] Comment on above: Performed By: #### L 100.0100, L500.4050 #### [facility] [address] [place], [address] Chloride [Moles/Vol] 105 mmol/L Normal 98-108 [facility] Comment on above: Performed By: #### L 100.0100, L500.4050 #### [facility] [address] [place], [address] CO2 [Moles/Vol] 21.8 mmol/L Normal 21.0-32.0 [facility] Comment on above: Performed By: #### L 100.0100, L500.4050 #### [facility] [address] [place], [address] Creatinine [Mass/Vol] 0.79 mg/dL Normal 0.70-1.20 [facility] Comment on above: Performed By: #### L 100.0100, L500.4050 #### [facility] [address] [place], [address] ECRCL 134.95 ml/min Normal 50-250 [facility] Comment on above: Performed By: #### L 100.0100, L500.4050 #### [facility] [address] [place], [address] GAP 11 Normal 5-15 [facility] Comment on above: Performed By: #### L 100.0100, L500.4050 #### [facility] [address] [place], [address] GFR/1.73 sq M.predicted among non-blacks MDRD (S/P/Bld) [Vol rate/Area] 105 mL/min/{1.73_m2} Normal >60 [facility] Comment on above: Result Comment: mL/m in/1.73m2 CKD-EPI Creatinine Equation (2020) Performed By: #### L 100.0100, L500.4050 #### [facility] [address] [place], [address] Globulin (S) [Mass/Vol] 2.9 g/dL Normal 2.2-4.2 [facility] Comment on above: Performed By: #### L 100.0100, L500.4050 #### [facility] [address] [place], [address] Glucose [Mass/Vol] 122 mg/dL High 70-99 [facility] Comment on above: Performed By: #### L 100.0100, L500.4050 #### [facility] [address] [place], [address] Potassium [Moles/Vol] 3.5 mmol/L Normal 3.3-5.1 [facility] Comment on above: Performed By: #### L 100.0100, L500.4050 #### [facility] [address] [place], [address] Sodium [Moles/Vol] 138 mmol/L Normal 133-145 [facility] Comment on above: Performed By: #### L 100.0100, L500.4050 #### [facility] [address] [place], [address] T PROT 6.7 g/dL Normal 5.9-8.4 [facility] Comment on above: Performed By: #### L 100.0100, L500.4050 #### [facility] [address] [place], [address] Urea nitrogen [Mass/Vol] 10 mg/dL Normal 4-19 [facility] Comment on above: Performed By: #### L 100.0100, L500.4050 #### [facility] [address] [place], [address] Oncology Visit Reporton 02-05 Oncology Visit Report [facility] [address] [place] [address] OFFICE VISIT Date of Service: 02/16/25 0804 MR#: [id number] Acct: [id number] Name: SE JEFFERS Rep #: [id number] : 2000 From: Christy Horton NP LOAN SERVICES PROFESSIONAL -C Age/Sex: 24/F [place] [facility] Status: Signed HPI Subjective Date of Service 02/16/25 Chief Complaint Hodgkin's lymphoma History of Present Illness 24-year-old female while residing in [place] presented with painless enlargement of right neck lymph nodes. There were no B symptoms. September 02, 2024 CT soft tissue of the neck with contrast: Adenopathy at the thoracic inlet, right juxta clavicular region, right axilla and the visualized superior mediastinum. The largest lymph node m ass was in the left para-aortic space measuring 7.7 cm in maximum diameter. September 16, 2024 PET/CT initial staging: Multiple prominent FDG avid right more than left lower cervical, supraclavicular and mediastinal lymph nodes, no FDG avid lymphadenopathy below the diaphragm, no abnormal FDG uptake in the spleen, heterogeneous FDG uptake in the axial marrow nonspecific. [place] 5. September 24, 2024 right cervical lymph node core needle biopsy: Classical Hodgkin's lymphoma. September 30, 2024 pretreatment ESR not elevated at 13. Initial workup was in [place], patient was clinical stage IIA favorable/unfavorabl e risk group because of involvement of more than 3 lymph node areas. She received 2 cycles of ABVD (day 1 and 15) November 26, 2024 PET/CT restaging following 2 cycles of ABVD: Significant interval decreased in the extent of FDG avid malignant disease developed down to 3. December 08, 2024: Began cycle [address] [facility]. Interval History The patient is presenting to clinic today accompanied by mother, for an evaluation anticipating she will begin c5 d15 AVD. Notes facial erythema typically on days 2-4 then improves. Only using gentle cleanser. + nausea, grade 1. No emesis. Antiemetics effective. + RUE ache noted on day Constipation improved. taking docusate sodium and senna 8.6 mg daily. Now resolved. LBM earlier this morning. reflux improved. Taking Prilosec daily. Reports 58 oz of PO fluid intake per day. Appetite good. Reports numbness/tingling fingertips and toes, and bottom of left foot. Denies fever/chills, sweats, dizziness, CP, palpitations, cough, SOB, abd pain, dysuria, hematuria, swelling of her extremities, any episodes of bleeding/bruising. [facility] Medical History Alopecia CINV (chemotherapy-induce d nausea and vomiting) Encounter for chemotherapy management Acne Asthma Dyslipidemia Prediabetes Migraine headache Other specified complication of vascular prosthetic devices, implants and grafts, initial encounter Hodgkin lymphoma Anxiety and depression pre diabetic history of anxiety and depression Surgical History H/O lymph node biopsy H/O wisdom tooth extraction History of right knee surgery History of tonsillectomy Family History Grandfather Diabetes Grandmother Cancer Lung, smoker. 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 Smoking Status: Never smoker alcohol intake: never substance use type: does not use caffeine: Yes what type of physical activity do you participate in: walking seatbelt use: always do you feel safe at home: Yes ROS ROS Narrative Negative except as documented in the interval HPI Intake Vital Signs 12/08/24 08:39 02/02/25 09:37 02/16/25 08:05 02/16/25 08:12 Height 5 ft 3 in 5 ft 3 in 5 ft 3 in 5 ft 3 in Weight: 261 lb 6 oz 263 lb 5 oz BMI 46.3 46.6 BP 110/80 112/82 H Blood Pressure Location Lt brachial Lt brachial Position Sitting Sitting Respiration 18 16 Pulse 103 H 82 Pulse Source Monitor Monitor Temp 96.9 F L 98.6 F Temperature Source Temporal Artery Temporal Artery Pulse Oximetry (%) 94 94 Oxygen Delivery Method room air room air Intake Is patient in pain?: No Allergies ibuprofen Allergy (Verified 02/16/25 08:10) Nausea Penicillins (PCN) Allergy (Verified 02/16/25 08:10) Rash Medications ???Medication ???Instructions ???Recorded ???Confirmed ???Type loratadine 10 mg capsule 10 mg PO DAILY 04/03/21 02/16/25 H istory spironolactone 100 mg tablet 200 mg (2 x 100 mg) PO QDAY #60 02/16/25 Rx tabs etonogestrel 0.12 mg-ethinyl 1 vag ring vaginal ONCE 3 weeks #3 03/29/24 02/16/25 Rx estradiol 0.015 mg/24 hr vaginal ea ring (NuvaRing) alprazolam 0.25 mg tablet (Xa (more content not included)... Normal [facility] CBC W/Diff, Automatedon - SMEAR COMMENT COMMENT Normal [facility] Comment on above: Result Comment: NEUT ROPENIA. Performed By: #### L 500.4050, L100.0100 #### [facility] [address] [place], [address] Comprehensive Metabolic Prof dcon 02-02-2025 Albumin [Mass/Vol] 3.9 g/dL Normal 3.5-5.0 [facility] Comment on above: Performed By: #### L 500.4050, L100.0100 #### [facility] [address] [place], [address] Albumin/Globulin [Mass ratio] 1.3 {ratio} Normal 0.9-2.4 [facility] Comment on above: Performed By: #### L 500.4050, L100.0100 #### [facility] [address] [place], [address] ALK PHOS 95 U/L Normal 35-104 [facility] Comment on above: Performed By: #### L 500.4050, L100.0100 #### [facility] [address] [place], [address] ALT [Catalytic activity/Vol] 22 U/L Normal <=34 [facility] Comment on above: Performed By: #### L 500.4050, L100.0100 #### [facility] [address] [place], [address] AST [Catalytic activity/Vol] 24 U/L Normal <=31 [facility] Comment on above: Performed By: #### L 500.4050, L100.0100 #### [facility] [address] [place], [address] Bilirubin [Mass/Vol] 0.26 mg/dL Normal 0.00-1.30 [facility] Comment on above: Performed By: #### L 500.4050, L100.0100 #### [facility] [address] [place], [address] BUN/CRE 11.4 RATIO Normal 10-20 [facility] Comment on above: Performed By: #### L 500.4050, L100.0100 #### [facility] [address] [place], [address] Calcium [Mass/Vol] 9.1 mg/dL Normal 7.6-11.0 [facility] Comment on above: Performed By: #### L 500.4050, L100.0100 #### [facility] [address] [place], [address] Chloride [Moles/Vol] 107 mmol/L Normal 98-108 [facility] Comment on above: Performed By: #### L 500.4050, L100.0100 #### [facility] [address] [place], [address] CO2 [Moles/Vol] 20.2 mmol/L Low 21.0-32.0 [facility] Comment on above: Performed By: #### L 500.4050, L100.0100 #### [facility] [address] [place], [address] Creatinine [Mass/Vol] 0.89 mg/dL Normal 0.70-1.20 [facility] Comment on above: Performed By: #### L 500.4050, L100.0100 #### [facility] [address] [place], [address] ECRCL 119.53 ml/min Normal 50-250 [facility] Comment on above: Performed By: #### L 500.4050, L100.0100 #### [facility] [address] [place], [address] GAP 12 Normal 5-15 [facility] Comment on above: Performed By: #### L 500.4050, L100.0100 #### [facility] [address] [place], [address] GFR/1.73 sq M.predicted among non-blacks MDRD (S/P/Bld) [Vol rate/Area] 92 mL/min/{1.73_m2} Normal >60 [facility] Comment on above: Result Comment: mL/m in/1.73m2 CKD-EPI Creatinine Equation (2020) Performed By: #### L 500.4050, L100.0100 #### [facility] [address] [place], [address] Globulin (S) [Mass/Vol] 3.0 g/dL Normal 2.2-4.2 [facility] Comment on above: Performed By: #### L 500.4050, L100.0100 #### [facility] [address] [place], [address] Glucose [Mass/Vol] 121 mg/dL High 70-99 [facility] Comment on above: Performed By: #### L 500.4050, L100.0100 #### [facility] [address] [place], [address] Potassium [Moles/Vol] 3.6 mmol/L Normal 3.3-5.1 [facility] Comment on above: Performed By: #### L 500.4050, L100.0100 #### [facility] [address] [place], [address] Sodium [Moles/Vol] 139 mmol/L Normal 133-145 [facility] Comment on above: Performed By: #### L 500.4050, L100.0100 #### [facility] [address] [place], [address] T PROT 7.0 g/dL Normal 5.9-8.4 [facility] Comment on above: Performed By: #### L 500.4050, L100.0100 #### [facility] [address] [place], [address] Urea nitrogen [Mass/Vol] 10 mg/dL Normal 4-19 [facility] Comment on above: Performed By: #### L 500.4050, L100.0100 #### [facility] [address] [place], [address] Oncology Visit Reporton - Oncology Visit Report [facility] [address] [place] [address] OFFICE VISIT Date of Service: 02/02/25 0927 MR#: [id number] Acct: [id number] Name: ES JEFFERS Rep #: [id number] : 2000 From: Candice Aguirre MD Age/Sex: 24/F [place] [facility] [place] Status: Signed HPI Subjective Date of Service 02/02/25 Chief Complaint Hodgkin's lymphoma History of Present Illness 24-year-old female while residing in [place] presented with painless enlargement of right neck lymph nodes. There were no B symptoms. September 02, 2024 CT soft tissue of the neck with contrast: Adenopathy at the thoracic inlet, right juxta clavicular region, right axilla and the visualized superior mediastinum. The largest lymph node m ass was in the left para-aortic space measuring 7.7 cm in maximum diameter. September 16, 2024 PET/CT initial staging: Multiple prominent FDG avid right more than left lower cervical, supraclavicular and mediastinal lymph nodes, no FDG avid lymphadenopathy below the diaphragm, no abnormal FDG uptake in the spleen, heterogeneous FDG uptake in the axial marrow nonspecific. [place] 5. September 24, 2024 right cervical lymph node core needle biopsy: Classical Hodgkin's lymphoma. September 30, 2024 pretreatment ESR not elevated at 13. Initial workup was in [place], patient was clinical stage IIA favorable/unfavorabl e risk group because of involvement of more than 3 lymph node areas. She received 2 cycles of ABVD (day 1 and 15) November 26, 2024 PET/CT restaging following 2 cycles of ABVD: Significant interval decreased in the extent of FDG avid malignant disease developed down to 3. PFSH Medical History CINV (chemotherapy-induce d nausea and vomiting) Encounter for chemotherapy management Acne Asthma Dyslipidemia Prediabetes Migraine headache Other specified complication of vascular prosthetic devices, implants and grafts, initial encounter Hodgkin lymphoma Anxiety and depression pre diabetic history of anxiety and depression Surgical History H/O lymph node biopsy H/O wisdom tooth extraction History of right knee surgery History of tonsillectomy Family History Grandfather Diabetes Grandmother Cancer Lung, smoker. 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 Smoking Status: Never smoker alcohol intake: never substance use type: does not use caffeine: Yes what type of physical activity do you participate in: walking seatbelt use: always do you feel safe at home: Yes ROS Constitutional Constitutional: Denies fatigue, fever(s) or weight loss Eyes Eyes: Reports systems reviewed and no addt'l complaints, except as documented ENT HEENT: Reports systems reviewed and no addt'l complaints, except as documented; Denies mouth lesions Cardiovascular Cardiovascular: Reports systems reviewed and no addt'l complaints, except as documented; Denies chest pain with activity or edema Respiratory/Chest Respiratory/Chest: Reports systems reviewed and no addt'l complaints, except as documented and other Details: Has mild asthma uses a rescue inhaler infrequently ; Denies cough or dyspnea Gastrointestinal Gastrointestinal: Reports systems reviewed and no addt'l complaints, except as documented, constipation, hematochezia and other Details: Minor rectal bleeding and pain following a bout of co nstipation, resolved ; Denies nausea or vomiting Genitourinary Genitourinary: Reports systems reviewed and no addt'l complaints, except as documented Musculoskeletal Musculoskeletal: Reports systems reviewed and no addt'l complaints, except as documented, arthralgias and other Details: Right shoulder arthralgias, uses Tylenol. ; Denies back pain Integumentary Integumentary: Reports systems reviewed and no addt'l complaints, except as documented; Denies new lesions Neurologic Neurologic: Reports systems reviewed and no addt'l complaints, except as documented; Denies focal weakness or paresthesias Psychiatric Psychiatric: Reports systems reviewed and no addt'l complaints, except as documented Endocrine Endocrinology: Reports systems reviewed and no addt'l complaints, except as documented Hematologic/Lymphati c Hematologic/Lymphati c: Reports systems reviewed and no addt'l complaints, except as documented; Denies lymphadenopathy Intake Vital Signs 12/08/24 08:39 02/02/25 09:29 02/02/25 09:37 Height 5 ft 3 in 5 ft 3 in 5 ft 3 in Weight: 118.558 kg BMI 46.3 BP 110/80 Blood Pressure Location Lt brachial Position (more content not included)... Normal [facility] Absolute lymphocyte countOrd ered By: Candice Aguirre on 01-19-2025 Lymphocytes Auto (Unsp spec) [#/Vol] 0.93 10*3/uL 0.83-4.51 [facility] Absolute neutrophil countOrd ered By: Candice Aguirre on 01-19-2025 Neutrophils (Bld) [#/Vol] 0.5 10*3/uL Low 2.0-7.7 [facility] Anion gap in Serum or Plasma Ordered By: Candice Aguirre on 01-19-2025 Anion gap [Moles/Vol] 11 mmol/L 08-19 [facility] Automated lymphocyte count a s percentage of total leukocytesOrdered By: Candice Aguirre on 01-19-2025 Lymphocytes/100 WBC Auto (Unsp spec) 46.5 % High 19- [facility] BUN/creatinine ratioOrdered By: Candice Aguirre on 01-19-2025 Urea nitrogen/Creatinine [Mass ratio] 17.5 mg/mg - [facility] Basophil percentageOrdered B y: Candice Aguirre on 01-19-2025 Basophils/100 WBC (Bld) 1.0 % 0-[address] [facility] Bilirubin, totalOrdered By: Candice Aguirre on 01-19-2025 Bilirubin [Mass/Vol] 0.26 mg/dL 0.00-1.30 [facility] Blood manual differential co mment interpretation (narrative result)Ordered By: Candice Aguirre on 01-19-2025 Manual differential comment [place] (Bld) [Interp] COMMENT [facility] Comment on above: NEUTROPENIA. CBC W/Diff, Automatedon 01-05 SMEAR COMMENT COMMENT Normal [facility] Comment on above: Result Comment: NEUT ROPENIA. Performed By: #### L 500.4050, L100.0100 #### [facility] [address] [place], [place], [address] Carbon dioxide, total [Moles /volume] in Central venous bloodOrdered By: Candice Aguirre on 01-19-2025 CO2 [Moles/Vol] 21.2 mmol/L 21.0-32.0 [facility] Chloride assayOrdered By: Thomas Aguirre on 01-19-2025 Chloride [Moles/Vol] 108 mmol/L 98-108 [facility] Comprehensive Metabolic Prof ilon 01-19-2025 Albumin [Mass/Vol] 3.9 g/dL Normal 3.5-5.0 [facility] Comment on above: Performed By: #### L 500.4050, L100.0100 #### [facility] [address] [place], [address] Albumin/Globulin [Mass ratio] 1.3 {ratio} Normal 0.9-2.4 [facility] Comment on above: Performed By: #### L 500.4050, L100.0100 #### [facility] [address] [place], [address] ALK PHOS 95 U/L Normal 35-104 [facility] Comment on above: Performed By: #### L 500.4050, L100.0100 #### [facility] [address] [place], [address] ALT [Catalytic activity/Vol] 20 U/L Normal <=34 [facility] Comment on above: Performed By: #### L 500.4050, L100.0100 #### [facility] [address] [place], [address] AST [Catalytic activity/Vol] 27 U/L Normal <=31 [facility] Comment on above: Result Comment: Hemo lysis present, Results??could be affected. ?? Performed By: #### L 500.4050, L100.0100 #### [facility] [address] [place], [address] Bilirubin [Mass/Vol] 0.26 mg/dL Normal 0.00-1.30 [facility] Comment on above: Performed By: #### L 500.4050, L100.0100 #### [facility] [address] [place], [address] BUN/CRE 17.5 RATIO Normal 10-20 [facility] Comment on above: Performed By: #### L 500.4050, L100.0100 #### [facility] [address] [place], [address] Calcium [Mass/Vol] 9.2 mg/dL Normal 7.6-11.0 [facility] Comment on above: Performed By: #### L 500.4050, L100.0100 #### [facility] [address] [place], [address] Chloride [Moles/Vol] 108 mmol/L Normal 98-108 [facility] Comment on above: Performed By: #### L 500.4050, L100.0100 #### [facility] [address] [place], [address] CO2 [Moles/Vol] 21.2 mmol/L Normal 21.0-32.0 [facility] Comment on above: Performed By: #### L 500.4050, L100.0100 #### [facility] [address] [place], [address] Creatinine [Mass/Vol] 0.86 mg/dL Normal 0.70-1.20 [facility] Comment on above: Performed By: #### L 500.4050, L100.0100 #### [facility] [address] [place], [address] ECRCL 123.70 ml/min Normal 50-250 [facility] Comment on above: Performed By: #### L 500.4050, L100.0100 #### [facility] [address] [place], [address] GAP 11 Normal 5-15 [facility] Comment on above: Performed By: #### L 500.4050, L100.0100 #### [facility] [address] [place], [address] GFR/1.73 sq M.predicted among non-blacks MDRD (S/P/Bld) [Vol rate/Area] 96 mL/min/{1.73_m2} Normal >60 [facility] Comment on above: Result Comment: mL/m in/1.73m2 CKD-EPI Creatinine Equation (2020) Performed By: #### L 500.4050, L100.0100 #### [facility] [address] [place], [address] Globulin (S) [Mass/Vol] 2.9 g/dL Normal 2.2-4.2 [facility] Comment on above: Performed By: #### L 500.4050, L100.0100 #### [facility] [address] [place], [address] Glucose [Mass/Vol] 100 mg/dL High 70-99 [facility] Comment on above: Performed By: #### L 500.4050, L100.0100 #### [facility] [address] [place], [address] Potassium [Moles/Vol] 4.7 mmol/L Normal 3.3-5.1 [facility] Comment on above: Result Comment: Hemo lysis present, Results??could be affected. ?? Performed By: #### L 500.4050, L100.0100 #### [facility] [address] [place], [address] Sodium [Moles/Vol] 141 mmol/L Normal 133-145 [facility] Comment on above: Performed By: #### L 500.4050, L100.0100 #### [facility] [address] [place], [address] T PROT 6.8 g/dL Normal 5.9-8.4 [facility] Comment on above: Performed By: #### L 500.4050, L100.0100 #### [facility] [address] [place], [address] Urea nitrogen [Mass/Vol] 15 mg/dL Normal 4-19 [facility] Comment on above: Performed By: #### L 500.4050, L100.0100 #### [facility] [address] [place], [address] Eosinophil percentageOrdered By: Candice Aguirre on 01-19-2025 Eosinophils/100 WBC (Bld) 3.5 % 0-5 [facility] Erythrocyte distribution wid th ratioOrdered By: Candice Aguirre on 01-19-2025 Erythrocyte distribution width (RBC) [Ratio] 15.5 % High 11.6-14.6 [facility] Erythrocyte distribution wid th standard deviationOrdered By: Candice Aguirre on 01-19-2025 Erythrocyte distribution width (RBC) [Ratio] 49.4 fl High 35.1-43.9 [facility] Glomerular filtration rate ( GFR) estimation/1.73 sq m using serum, plasma, or whole bOrdered By: Candice Aguirre on 01-19-2025 GFR/1.73 sq M.predicted among non-blacks MDRD (S/P/Bld) [Vol rate/Area] 96 mL/min/{1.73_m2} >60 [facility] Comment on above: mL/min/1.73m2 CKD-EP I Creatinine Equation (2020) Hematocrit Auto (Bld) [Volum e fraction]Ordered By: Candice Aguirre on 01-19-2025 Hematocrit (Bld) [Volume fraction] 38.2 % 37-47 [facility] Hemoglobin measurementOrdere d By: Candice Aguirre on 01-19-2025 Hemoglobin (Bld) [Mass/Vol] 13.3 g/dL 12.0-15.0 [facility] Immature granulocytes/100 WB C Auto (Bld)Ordered By: Candice Aguirre on 01-19-2025 Immature granulocytes/100 WBC (Bld) 0.000 % 0.0-0.9 [facility] Comment on above: IG% - Immature Granu locytes (promyelocytes, myelocytes and metamyelocytes) > 1% indicates that a LEFT SHIFT is Present. Laboratory - Chemistry and C hemistry - challengeOrdered By: Candice Aguirre on 01-19-2025 AST [Catalytic activity/Vol] 27 U/L <32 [facility] Comment on above: Hemolysis present, R esults could be affected. MCV (mean corpuscular volume ) determinationOrdered By: Candice Aguirre on 01-19-2025 MCV (RBC) [Entitic vol] 91.2 fL 81-[address] [facility] Mean corpuscular hemoglobin (MCH) determinationOrdered By: Candice Aguirre on 01-19-2025 MCH (RBC) [Entitic mass] 31.7 pg 27.0-32.0 [facility] Mean corpuscular hemoglobin concentration (MCHC) determinationOrdered By: Candice Carla on 01-19-2025 MCHC (RBC) [Mass/Vol] 34.8 g/dL 32-36 [facility] Mean platelet volume determi nationOrdered By: [facility] Jacob[facility]ia on 01-19-2025 Platelet mean volume (Bld) [Entitic vol] 9.4 fL 6.2-12.0 [facility] Monocyte percentageOrdered B y: [facility] Carla on 01-19-2025 Monocytes/100 WBC (Bld) 26.0 % High 0-[address] [facility] Neutrophil percentageOrdered By: [facility] 01-[facility]20[facility] Neutrophils/100 WBC (Bld) 23.0 % Low 47-70 [facility] Nucleated red blood cell per centageOrdered By: [facility] on 01-19-2025 Nucleated RBC/100 WBC (Bld) [Ratio] 0 % 0-5 [facility] Oncology Visit Reporton 01-05 Oncology Visit Report [facility] [address] [place] [id number] OFFICE VISIT Date of Service: 01/19/25919 MR#: [id number] Acct: [id number] Name: SE JEFFERS Rep #: [id number] : 2000 From: Christy Horton NP [employer]C Age/Sex: 24/F [place] [facility] [place] Status: Signed HPI Subjective Date of Service 01/19/25 Chief Complaint Hodgkin's lymphoma History of Present Illness 24-year-old female while residing in [place] presented with painless enlargement of right neck lymph nodes. There were no B symptoms. September 02, 2024 CT soft tissue of the neck with contrast: Adenopathy at the thoracic inlet, right juxta clavicular region, right axilla and the visualized superior mediastinum. The largest lymph node m ass was in the left para-aortic space measuring 7.7 cm in maximum diameter. September 16, 2024 PET/CT initial staging: Multiple prominent FDG avid right more than left lower cervical, supraclavicular and mediastinal lymph nodes, no FDG avid lymphadenopathy below the diaphragm, no abnormal FDG uptake in the spleen, heterogeneous FDG uptake in the axial marrow nonspecific. [place] 5. September 24, 2024 right cervical lymph node core needle biopsy: Classical Hodgkin's lymphoma. September 30, 2024 pretreatment ESR not elevated at 13. Initial workup was in [place], patient was clinical stage IIA favorable/unfavorabl e risk group because of involvement of more than 3 lymph node areas. She received 2 cycles of ABVD (day 1 and 15) November 26, 2024 PET/CT restaging following 2 cycles of ABVD: Significant interval decreased in the extent of FDG avid malignant disease developed down to 3. Interval History The patient is presenting to clinic today accompanied by mother, for an evaluation anticipating she will begin c4 d15 AVD. Reports pimple-like rash on face and upper back begins on day 4 5. She stopped using tretinoin washes. Only using gentle cleanser. + nausea, grade 1. No emesis. Antiemetics effective. Requests Zofran. Constipation improved. taking docusate sodium and senna 8.6 mg daily. Now resolved. LBM earlier this morning. reflux improved. Taking Prilosec daily. also days 2-4. Reports 58 oz of PO fluid intake per day. Reports intermittent numbness/tingling fingertips and toes, and bottom of left foot. Denies fever/chills, sweats, dizziness, CP, palpitations, cough, SOB, abd pain, dysuria, hematuria, swelling of her extremities, any episodes of bleeding/bruising. [facility] Medical History Encounter for chemotherapy management Acne Asthma Dyslipidemia Prediabetes Migraine headache Other specified complication of vascular prosthetic devices, implants and grafts, initial encounter Hodgkin lymphoma Anxiety and depression pre diabetic history of anxiety and depression Surgical History H/O lymph node biopsy H/O wisdom tooth extraction History of right knee surgery History of tonsillectomy Family History Grandfather Diabetes Grandmother Cancer Lung, smoker. 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 Smoking Status: Never smoker alcohol intake: never substance use type: does not use caffeine: Yes what type of physical activity do you participate in: walking seatbelt use: always do you feel safe at home: Yes ROS ROS Narrative Negative except as documented in the interval HPI Intake Vital Signs 12/08/24 08:39 01/05/25 09:35 01/19/25 09:22 Height 5 ft 3 in 5 ft 3 in 5 ft 3 in Weight: 261 lb 6 oz 262 lb 6 oz BMI 46.3 46.5 BP 112/74 106/74 Blood Pressure Location Lt brachial Lt brachial Position Sitting Sitting Respiration 18 18 Pulse 86 79 Pulse Source Monitor Monitor Temp 98.2 F 97.6 F L Temperature Source Temporal Artery Temporal Artery Pulse Oximetry (%) 98 99 Oxygen Delivery Method room air room air Intake Accompanied by: Self Is patient in pain?: No Allergies ibuprofen Allergy (Verified 01/19/25 09:25) Nausea Penicillins (PCN) Allergy (Verified 01/19/25 09:25) Rash Medications ???Medication ???Instructions ???Recorded ???Confirmed ???Type loratadine 10 mg capsule 10 mg PO DAILY 04/03/21 01/19/25 H istory spironolactone 100 mg tablet 200 mg (2 x 100 mg) PO QDAY #60 01/19/25 Rx tabs etonogestrel 0.12 mg-ethinyl 1 vag ring vaginal ONCE 3 weeks #3 03/29/24 01/19/25 Rx estradiol 0.015 mg/24 hr vaginal ea ring (NuvaRing) alprazolam 0.25 mg tablet (Xanax) 0.25 mg PO QDAY PRN 11/17/2401/05 (more content not included)... Normal [facility] Platelet countOrdered By: Thomas Aguirre on 01-19-2025 Platelets (Bld) [#/Vol] 284 10*3/uL 150-450 [facility] Potassium measurement (mass/ volume)Ordered By: Candice Aguirre on 01-19-2025 Potassium (Unsp spec) [Mass/Vol] 4.7 mmol/L 3.3-5.1 [facility] Comment on above: Hemolysis present, R esults could be affected. RBC Auto (Bld) [#/Vol]Ordere d By: Candice Aguirre on 01-19-2025 RBC (Bld) [#/Vol] 4.19 10*6/uL Low 4.2-5.4 [facility] Serum creatinine measurement (mass/volume)Ordered By: Candice Aguirre on 01-19-2025 Creatinine [Mass/Vol] 0.86 mg/dL 0.70-1.20 [facility] Serum globulin measurementOr dered By: Candice Aguirre on 01-19-2025 Globulin (S) [Mass/Vol] 2.9 g/dL 2.2-4.[address] [facility] Serum glucose measurement (m ass/volume)Ordered By: Candice Aguirre on 01-19-2025 Glucose [Mass/Vol] 100 mg/dL High 70-99 [facility] Serum or plasma alanine dillard otransferase (ALT) measurementOrdered By: Candice Aguirre on 01-19-2025 ALT [Catalytic activity/Vol] 20 U/L <35 [facility] Serum or plasma albumin breanne urement (mass/volume)Ordered By: Candice Aguirre on 01-19-2025 Albumin [Mass/Vol] 3.9 g/dL 3.5-5.0 [facility] Serum or plasma albumin/glob ulin mass ratioOrdered By: Candice Aguirre on 01-19-2025 Albumin/Globulin [Mass ratio] 1.3 {ratio} 0.9-2.4 [facility] Serum or plasma alkaline bart sphatase measurementOrdered By: Candice Aguirre on 01-19-2025 ALP [Catalytic activity/Vol] 95 U/L 35-104 [facility] Serum or plasma calcium breanne urement (mass/volume)Ordered By: Candice Aguirre on 01-19-2025 Calcium [Mass/Vol] 9.2 mg/dL 7.6-11.0 [facility] Serum or plasma urea nitroge n measurement (mass/volume)Ordered By: Candice Aguirre on 01-19-2025 Urea nitrogen [Mass/Vol] 15 mg/dL 4-19 [facility] Sodium levelOrdered By: Modesto eli Carla on 01-19-2025 Sodium [Moles/Vol] 141 mmol/L 133-145 [facility] Total proteinOrdered By: Venkatesh hendrix Carla on 01-19-2025 Protein [Mass/Vol] 6.8 g/dL 5.9-8.4 [facility] White blood cell (WBC) count Ordered By: Modestoalcira Carla on 01-19-2025 WBC (Bld) [#/Vol] 2.0 10*3/uL Low 4.4-11.0 [facility] Absolute lymphocyte countOrd ered By: Candice Carla on 01-05-2025 Lymphocytes Auto (Unsp spec) [#/Vol] 1.02 10*3/uL 0.83-4.51 [facility] Absolute neutrophil countOrd ered By: Candice Aguirre on 01-05-2025 Neutrophils (Bld) [#/Vol] 0.7 10*3/uL Low 2.0-7.7 [facility] Anion gap in Serum or Plasma Ordered By: Candice Aguirre on 01-05-2025 Anion gap [Moles/Vol] 13 mmol/L - [facility] Automated lymphocyte count a s percentage of total leukocytesOrdered By: Candice Aguirre on 01-05-2025 Lymphocytes/100 WBC Auto (Unsp spec) 44.0 % High 19-41 [facility] BUN/creatinine ratioOrdered By: Candice Aguirre on 01-05-2025 Urea nitrogen/Creatinine [Mass ratio] 13.9 mg/mg 10-20 [facility] Basophil percentageOrdered B y: Candice Aguirre on 01-05-2025 Basophils/100 WBC (Bld) 1.7 % High 0-[address] [facility] Bilirubin, totalOrdered By: Candice Aguirre on 01-05-2025 Bilirubin [Mass/Vol] 0.25 mg/dL 0.00-1.30 [facility] CBC W/Diff, Automatedon Absolute Lymph 1.02 X10 3/uL Normal 0.83-4.51 [facility] Comment on above: Performed By: #### L 100.0100, L500.4050 #### [facility] [address] [place], [address] Absolute Neut 0.7 X10 3/uL Low 2.0-7.7 [facility] Comment on above: Performed By: #### L 100.0100, L500.4050 #### [facility] [address] [place], [address] Basophils/100 WBC (Bld) 1.7 % High 0-[address] [facility] Comment on above: Performed By: #### L 100.0100, L500.4050 #### [facility] [address] [place], [address] Eosinophils/100 WBC (Bld) 3.9 % Normal 0-5 [facility] Comment on above: Performed By: #### L 100.0100, L500.4050 #### [facility] [address] [place], [address] Erythrocyte distribution width (RBC) [Ratio] 15.2 % High 11.6-14.6 [facility] Comment on above: Performed By: #### L 100.0100, L500.4050 #### [facility] [address] [place], [address] Hematocrit (Bld) [Volume fraction] 41.7 % Normal 37-47 [facility] Comment on above: Performed By: #### L 100.0100, L500.4050 #### [facility] [address] [place], [address] Hemoglobin (Bld) [Mass/Vol] 14.1 g/dL Normal 12.0-15.0 [facility] Comment on above: Performed By: #### L 100.0100, L500.4050 #### [facility] [address] [place], [address] IG% 0.000 Normal 0.0-0.9 [facility] Comment on above: Result Comment: IG% - Immature Granulocytes (promyelocytes, myelocytes and metamyelocytes) > 1% indicates that a LEFT SHIFT is Present. Performed By: #### L 100.0100, L500.4050 #### [facility] [address] [place], [address] Lymphocytes/100 WBC (Bld) 44.0 % High 19-41 [facility] Comment on above: Performed By: #### L 100.0100, L500.4050 #### [facility] [address] [place], [address] MCH (RBC) [Entitic mass] 31.0 pg Normal 27.0-32.0 [facility] Comment on above: Performed By: #### L 100.0100, L500.4050 #### [facility] [address] [place], [address] MCHC (RBC) [Mass/Vol] 33.8 g/dL Normal 32-36 [facility] Comment on above: Performed By: #### L 100.0100, L500.4050 #### [facility] [address] [place], [address] MCV (RBC) [Entitic vol] 91.6 fL Normal 81-[address] [facility] Comment on above: Performed By: #### L 100.0100, L500.4050 #### [facility] [address] [place], [address] Monocytes/100 WBC (Bld) 20.3 % High 0-[address] [facility] Comment on above: Performed By: #### L 100.0100, L500.4050 #### [facility] [address] [place], [address] Neutrophils/100 WBC (Bld) 30.1 % Low 47-70 [facility] Comment on above: Performed By: #### L 100.0100, L500.4050 #### [facility] [address] [place], [address] Nucleated RBC (Bld) [#/Vol] 0 10*3/uL Normal 0-5 [facility] Comment on above: Performed By: #### L 100.0100, L500.4050 #### [facility] [address] [place], [address] Platelet mean volume (Bld) [Entitic vol] 9.6 fL Normal 6.2-12.0 [facility] Comment on above: Performed By: #### L 100.0100, L500.4050 #### [facility] [address] [place], [address] Platelets (Bld) [#/Vol] 326 10*3/uL Normal 150-450 [facility] Comment on above: Performed By: #### L 100.0100, L500.4050 #### [facility] [address] [place], [address] RBC (Bld) [#/Vol] 4.55 10*6/uL Normal 4.2-5.4 [facility] Comment on above: Performed By: #### L 100.0100, L500.4050 #### [facility] [address] [place], [address] RDW SD 49.1 fl High 35.1-43.9 [facility] Comment on above: Performed By: #### L 100.0100, L500.4050 #### [facility] [address] [place], [address] WBC (Bld) [#/Vol] 2.3 10*3/uL Low 4.4-11.0 [facility] Comment on above: Performed By: #### L 100.0100, L500.4050 #### [facility] [address] [place], [address] Carbon dioxide, total [Moles /volume] in Central venous bloodOrdered By: Candice Aguirre on 01-05-2025 CO2 [Moles/Vol] 20.9 mmol/L Low 21.0-32.0 [facility] Chloride assayOrdered By: Thomas Aguirre on 01-05-2025 Chloride [Moles/Vol] 108 mmol/L 98-108 [facility] Comprehensive Metabolic Prof ilon 01-05-2025 Albumin [Mass/Vol] 4.0 g/dL Normal 3.5-5.0 [facility] Comment on above: Performed By: #### L 100.0100, L500.4050 #### [facility] [address] [place], [address] Albumin/Globulin [Mass ratio] 1.4 {ratio} Normal 0.9-2.4 [facility] Comment on above: Performed By: #### L 100.0100, L500.4050 #### [facility] [address] [place], [address] ALK PHOS 94 U/L Normal 35-104 [facility] Comment on above: Performed By: #### L 100.0100, L500.4050 #### [facility] [address] [place], [address] ALT [Catalytic activity/Vol] 25 U/L Normal <=34 [facility] Comment on above: Performed By: #### L 100.0100, L500.4050 #### [facility] [address] [place], [address] AST [Catalytic activity/Vol] 27 U/L Normal <=31 [facility] Comment on above: Result Comment: Hemo lysis present, Results??could be affected. ?? Performed By: #### L 100.0100, L500.4050 #### [facility] [address] [place], [address] Bilirubin [Mass/Vol] 0.25 mg/dL Normal 0.00-1.30 [facility] Comment on above: Performed By: #### L 100.0100, L500.4050 #### [facility] [address] [place], [address] BUN/CRE 13.9 RATIO Normal 10-20 [facility] Comment on above: Performed By: #### L 100.0100, L500.4050 #### [facility] [address] [place], [address] Calcium [Mass/Vol] 9.2 mg/dL Normal 7.6-11.0 [facility] Comment on above: Performed By: #### L 100.0100, L500.4050 #### [facility] [address] [place], [address] Chloride [Moles/Vol] 108 mmol/L Normal 98-108 [facility] Comment on above: Performed By: #### L 100.0100, L500.4050 #### [facility] [address] [place], [address] CO2 [Moles/Vol] 20.9 mmol/L Low 21.0-32.0 [facility] Comment on above: Performed By: #### L 100.0100, L500.4050 #### [facility] [address] [place], [address] Creatinine [Mass/Vol] 0.87 mg/dL Normal 0.70-1.20 [facility] Comment on above: Performed By: #### L 100.0100, L500.4050 #### [facility] [address] [place], [address] ECRCL 122.00 ml/min Normal 50-250 [facility] Comment on above: Performed By: #### L 100.0100, L500.4050 #### [facility] [address] [place], [address] GAP 13 Normal 5-15 [facility] Comment on above: Performed By: #### L 100.0100, L500.4050 #### [facility] [address] [place], [address] GFR/1.73 sq M.predicted among non-blacks MDRD (S/P/Bld) [Vol rate/Area] 94 mL/min/{1.73_m2} Normal >60 [facility] Comment on above: Result Comment: mL/m in/1.73m2 CKD-EPI Creatinine Equation (2020) Performed By: #### L 100.0100, L500.4050 #### [facility] [address] [place], [address] Globulin (S) [Mass/Vol] 2.9 g/dL Normal 2.2-4.2 [facility] Comment on above: Performed By: #### L 100.0100, L500.4050 #### [facility] [address] [place], [address] Glucose [Mass/Vol] 107 mg/dL High 70-99 [facility] Comment on above: Performed By: #### L 100.0100, L500.4050 #### [facility] [address] [place], [address] Potassium [Moles/Vol] 4.1 mmol/L Normal 3.3-5.1 [facility] Comment on above: Result Comment: Hemo lysis present, Results??could be affected. ?? Performed By: #### L 100.0100, L500.4050 #### [facility] [address] [place], [address] Sodium [Moles/Vol] 142 mmol/L Normal 133-145 [facility] Comment on above: Performed By: #### L 100.0100, L500.4050 #### [facility] [address] [place], [address] T PROT 6.8 g/dL Normal 5.9-8.4 [facility] Comment on above: Performed By: #### L 100.0100, L500.4050 #### [facility] [address] [place], [address] Urea nitrogen [Mass/Vol] 12 mg/dL Normal 4-19 [facility] Comment on above: Performed By: #### L 100.0100, L500.4050 #### [facility] [address] [place], [address] Eosinophil percentageOrdered By: Candice Aguirre on 01-05-2025 Eosinophils/100 WBC (Bld) 3.9 % 0-5 [facility] Erythrocyte distribution wid th ratioOrdered By: Candice Aguirre on 01-05-2025 Erythrocyte distribution width (RBC) [Ratio] 15.2 % High 11.6-14.6 [facility] Erythrocyte distribution wid th standard deviationOrdered By: Candice Aguirre on 01-05-2025 Erythrocyte distribution width (RBC) [Ratio] 49.1 fl High 35.1-43.9 [facility] Glomerular filtration rate ( GFR) estimation/1.73 sq m using serum, plasma, or whole bOrdered By: Candice Aguirre on 01-05-2025 GFR/1.73 sq M.predicted among non-blacks MDRD (S/P/Bld) [Vol rate/Area] 94 mL/min/{1.73_m2} >60 [facility] Comment on above: mL/min/1.73m2 CKD-EP I Creatinine Equation (2020) Hematocrit Auto (Bld) [Volum e fraction]Ordered By: Candice Aguirre on 01-05-2025 Hematocrit (Bld) [Volume fraction] 41.7 % 37-47 [facility] Hemoglobin measurementOrdere d By: Candice Aguirre on 01-05-2025 Hemoglobin (Bld) [Mass/Vol] 14.1 g/dL 12.0-15.0 [facility] Immature granulocytes/100 WB C Auto (Bld)Ordered By: Candice Aguirre on 01-05-2025 Immature granulocytes/100 WBC (Bld) 0.000 % 0.0-0.9 [facility] Comment on above: IG% - Immature Granu locytes (promyelocytes, myelocytes and metamyelocytes) > 1% indicates that a LEFT SHIFT is Present. Laboratory - Chemistry and C hemistry - challengeOrdered By: Candice Aguirre on 01-05-2025 AST [Catalytic activity/Vol] 27 U/L <32 [facility] Comment on above: Hemolysis present, R esults could be affected. MCV (mean corpuscular volume ) determinationOrdered By: Candice Aguirre on 01-05-2025 MCV (RBC) [Entitic vol] 91.6 fL 81-[address] [facility] Mean corpuscular hemoglobin (MCH) determinationOrdered By: Candice Aguirre on 01-05-2025 MCH (RBC) [Entitic mass] 31.0 pg 27.0-32.0 [facility] Mean corpuscular hemoglobin concentration (MCHC) determinationOrdered By: Candice Aguirre on 01-05-2025 MCHC (RBC) [Mass/Vol] 33.8 g/dL 32-36 [facility] Mean platelet volume determi nationOrdered By: Candice Aguirre on 01-05-2025 Platelet mean volume (Bld) [Entitic vol] 9.6 fL 6.2-12.0 [facility] Monocyte percentageOrdered B y: Candice Aguirre on 01-05-2025 Monocytes/100 WBC (Bld) 20.3 % High 0-[address] [facility] Neutrophil percentageOrdered By: Candice Aguirre on 01-05-2025 Neutrophils/100 WBC (Bld) 30.1 % Low 47-70 [facility] Nucleated red blood cell per centageOrdered By: Candice Aguirre on 01-05-2025 Nucleated RBC/100 WBC (Bld) [Ratio] 0 % 0-5 [facility] Oncology Visit Reporton 10-0 Oncology Visit Report [facility] [place] [address] OFFICE VISIT Date of Service: 01/05/25929 MR#: [id number] Acct: [id number] Name: SE JEFFERS Rep #: [id number] 25 : 2000 From: Candice Aguirre MD Age/Sex: 24/F [place] [facility] Status: Signed HPI Subjective Date of Service 01/05/25 Chief Complaint Hodgkin's lymphoma History of Present Illness 24-year-old female while residing in [place] presented with painless enlargement of right neck lymph nodes. There were no B symptoms. September 02, 2024 CT soft tissue of the neck with contrast: Adenopathy at the thoracic inlet, right juxta clavicular region, right axilla and the visualized superior mediastinum. The largest lymph node m ass was in the left para-aortic space measuring 7.7 cm in maximum diameter. September 16, 2024 PET/CT initial staging: Multiple prominent FDG avid right more than left lower cervical, supraclavicular and mediastinal lymph nodes, no FDG avid lymphadenopathy below the diaphragm, no abnormal FDG uptake in the spleen, heterogeneous FDG uptake in the axial marrow nonspecific. [place] 5. September 24, 2024 right cervical lymph node core needle biopsy: Classical Hodgkin's lymphoma. September 30, 2024 pretreatment ESR not elevated at 13. Initial workup was in [place], patient was clinical stage IIA favorable/unfavorabl e risk group because of involvement of more than 3 lymph node areas. She received 2 cycles of ABVD (day 1 and 15) November 26, 2024 PET/CT restaging following 2 cycles of ABVD: Significant interval decreased in the extent of FDG avid malignant disease developed down to 3. [facility] Medical History Encounter for chemotherapy management Acne Asthma Dyslipidemia Prediabetes Migraine headache Other specified complication of vascular prosthetic devices, implants and grafts, initial encounter Hodgkin lymphoma Anxiety and depression pre diabetic history of anxiety and depression Surgical History H/O lymph node biopsy H/O wisdom tooth extraction History of right knee surgery History of tonsillectomy Family History Grandfather Diabetes Grandmother Cancer Lung, smoker. 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 Smoking Status: Never smoker alcohol intake: never substance use type: does not use caffeine: Yes what type of physical activity do you participate in: walking seatbelt use: always do you feel safe at home: Yes ROS Constitutional Constitutional: Denies fatigue, fever(s) or weight loss Eyes Eyes: Reports systems reviewed and no addt'l complaints, except as documented ENT HEENT: Reports systems reviewed and no addt'l complaints, except as documented; Denies mouth lesions Cardiovascular Cardiovascular: Reports systems reviewed and no addt'l complaints, except as documented; Denies chest pain with activity or edema Respiratory/Chest Respiratory/Chest: Reports systems reviewed and no addt'l complaints, except as documented and other Details: Has mild asthma uses a rescue inhaler infrequently ; Denies cough or dyspnea Gastrointestinal Gastrointestinal: Reports systems reviewed and no addt'l complaints, except as documented; Denies change in bowel habits, nausea or vomiting Genitourinary Genitourinary: Reports systems reviewed and no addt'l complaints, except as documented Musculoskeletal Musculoskeletal: Reports systems reviewed and no addt'l complaints, except as documented; Denies back pain Integumentary Integumentary: Reports systems reviewed and no addt'l complaints, except as documented; Denies new lesions Neurologic Neurologic: Reports systems reviewed and no addt'l complaints, except as documented; Denies focal weakness or paresthesias Psychiatric Psychiatric: Reports systems reviewed and no addt'l complaints, except as documented, anxiety, panic attacks and other Details: Patient and her mother confirmed that she is quite anxious around treatment and experienced some panic attacks. Endocrine Endocrinology: Reports systems reviewed and no addt'l complaints, except as documented Hematologic/Lymphati c Hematologic/Lymphati c: Reports systems reviewed and no addt'l complaints, except as documented and other Details: Can no longer feel the enlarged lymph nodes in the neck but generally avoids touching the area ; Denies lymphadenopathy Intake Vital Signs 12/08/24 08:39 12/22/24 09:31 01/05/25 09:31 01/05/25 09:35 Height 5 ft 3 in 5 ft 3 in 5 ft 3 in 5 ft 3 in Weight: 119.89 kg 118.5 (more content not included)... Normal [facility] Platelet countOrdered By: Thomas Aguirre on 01-05-2025 Platelets (Bld) [#/Vol] 326 10*3/uL 150-450 [facility] Potassium measurement (mass/ volume)Ordered By: Candice Aguirre on 01-05-2025 Potassium (Unsp spec) [Mass/Vol] 4.1 mmol/L 3.3-5.1 [facility] Comment on above: Hemolysis present, R esults could be affected. RBC Auto (Bld) [#/Vol]Ordere d By: Candice Aguirre on 01-05-2025 RBC (Bld) [#/Vol] 4.55 10*6/uL 4.2-5.4 [facility] Serum creatinine measurement (mass/volume)Ordered By: Candice Aguirre on 01-05-2025 Creatinine [Mass/Vol] 0.87 mg/dL 0.70-1.20 [facility] Serum globulin measurementOr dered By: Candice Aguirre on 01-05-2025 Globulin (S) [Mass/Vol] 2.9 g/dL 2.2-4.[address] [facility] Serum glucose measurement (m ass/volume)Ordered By: Candice Aguirre on 01-05-2025 Glucose [Mass/Vol] 107 mg/dL High 70-99 [facility] Serum or plasma alanine dillard otransferase (ALT) measurementOrdered By: Candice Aguirre on 01-05-2025 ALT [Catalytic activity/Vol] 25 U/L <35 [facility] Serum or plasma albumin breanne urement (mass/volume)Ordered By: Candice Aguirre on 01-05-2025 Albumin [Mass/Vol] 4.0 g/dL 3.5-5.0 [facility] Serum or plasma albumin/glob ulin mass ratioOrdered By: Candice Aguirre on 01-05-2025 Albumin/Globulin [Mass ratio] 1.4 {ratio} 0.9-2.4 [facility] Serum or plasma alkaline bart sphatase measurementOrdered By: Candice Aguirre on 01-05-2025 ALP [Catalytic activity/Vol] 94 U/L 35-104 [facility] Serum or plasma calcium breanne urement (mass/volume)Ordered By: Candice Aguirre on 01-05-2025 Calcium [Mass/Vol] 9.2 mg/dL 7.6-11.0 [facility] Serum or plasma urea nitroge n measurement (mass/volume)Ordered By: Candice Aguirre on 01-05-2025 Urea nitrogen [Mass/Vol] 12 mg/dL 4-19 [facility] Sodium levelOrdered By: Modesto Aguirre on 01-05-2025 Sodium [Moles/Vol] 142 mmol/L 133-145 [facility] Total proteinOrdered By: Venkatesh Aguirre on 01-05-2025 Protein [Mass/Vol] 6.8 g/dL 5.9-8.4 [facility] White blood cell (WBC) count Ordered By: Candice Aguirre on 01-05-2025 WBC (Bld) [#/Vol] 2.3 10*3/uL Low 4.4-11.0 [facility] Absolute lymphocyte countOrd ered By: Candice Aguirre on 12-22-2024 Lymphocytes Auto (Unsp spec) [#/Vol] 1.13 10*3/uL 0.83-4.51 [facility] Absolute neutrophil countOrd ered By: Candice Aguirre on 12-22-2024 Neutrophils (Bld) [#/Vol] 0.7 10*3/uL Low 2.0-7.7 [facility] Anion gap in Serum or Plasma Ordered By: Candice Aguirre on 12-22-2024 Anion gap [Moles/Vol] 11 mmol/L 5-15 [facility] Automated lymphocyte count a s percentage of total leukocytesOrdered By: Candice Aguirre on 12-22-2024 Lymphocytes/100 WBC Auto (Unsp spec) 45.6 % High 19-41 [facility] BUN/creatinine ratioOrdered By: Candice Aguirre on 12-22-2024 Urea nitrogen/Creatinine [Mass ratio] 14.9 mg/mg 10-20 [facility] Basophil percentageOrdered B y: Candice Aguirre on 12-22-2024 Basophils/100 WBC (Bld) 0.8 % 0-[address] [facility] Bilirubin Test strip Ql (U)O rdered By: Christy Horton on 12-22-2024 Bilirubin Ql (U) Negative Negative [facility] Bilirubin, totalOrdered By: Candice Aguirre on 12-22-2024 Bilirubin [Mass/Vol] 0.26 mg/dL 0.00-1.30 [facility] CBC W/Diff, Automatedon 12-06 Absolute Lymph 1.13 X10 3/uL Normal 0.83-4.51 [facility] Comment on above: Performed By: #### L 500.4050, L100.0100 #### [facility] [address] [place], [address] Absolute Neut 0.7 X10 3/uL Low 2.0-7.7 [facility] Comment on above: Performed By: #### L 500.4050, L100.0100 #### [facility] [address] [place], [address] Basophils/100 WBC (Bld) 0.8 % Normal 0-[address] [facility] Comment on above: Performed By: #### L 500.4050, L100.0100 #### [facility] [address] [place], [address] Eosinophils/100 WBC (Bld) 4.8 % Normal 0-5 [facility] Comment on above: Performed By: #### L 500.4050, L100.0100 #### [facility] [address] [place], [address] Erythrocyte distribution width (RBC) [Ratio] 14.7 % High 11.6-14.6 [facility] Comment on above: Performed By: #### L 500.4050, L100.0100 #### [facility] [address] [place], [address] Hematocrit (Bld) [Volume fraction] 39.6 % Normal 37-47 [facility] Comment on above: Performed By: #### L 500.4050, L100.0100 #### [facility] [address] [place], [address] Hemoglobin (Bld) [Mass/Vol] 13.9 g/dL Normal 12.0-15.0 [facility] Comment on above: Performed By: #### L 500.4050, L100.0100 #### [facility] [address] [place], [address] IG% 0.000 Normal 0.0-0.9 [facility] Comment on above: Result Comment: IG% - Immature Granulocytes (promyelocytes, myelocytes and metamyelocytes) > 1% indicates that a LEFT SHIFT is Present. Performed By: #### L 500.4050, L100.0100 #### [facility] [address] [place], [address] Lymphocytes/100 WBC (Bld) 45.6 % High 19-41 [facility] Comment on above: Performed By: #### L 500.4050, L100.0100 #### [facility] [address] [place], [address] MCH (RBC) [Entitic mass] 31.8 pg Normal 27.0-32.0 [facility] Comment on above: Performed By: #### L 500.4050, L100.0100 #### [facility] [address] [place], [address] MCHC (RBC) [Mass/Vol] 35.1 g/dL Normal 32-36 [facility] Comment on above: Performed By: #### L 500.4050, L100.0100 #### [facility] [address] [place], [address] MCV (RBC) [Entitic vol] 90.6 fL Normal 81-[address] [facility] Comment on above: Performed By: #### L 500.4050, L100.0100 #### [facility] [address] [place], [address] Monocytes/100 WBC (Bld) 22.2 % High 0-[address] [facility] Comment on above: Performed By: #### L 500.4050, L100.0100 #### [facility] [address] [place], [address] Neutrophils/100 WBC (Bld) 26.6 % Low 47-70 [facility] Comment on above: Performed By: #### L 500.4050, L100.0100 #### [facility] [address] [place], [address] Nucleated RBC (Bld) [#/Vol] 0 10*3/uL Normal 0-5 [facility] Comment on above: Performed By: #### L 500.4050, L100.0100 #### [facility] [address] [place], [address] Platelet mean volume (Bld) [Entitic vol] 9.2 fL Normal 6.2-12.0 [facility] Comment on above: Performed By: #### L 500.4050, L100.0100 #### [facility] [address] [place], [address] Platelets (Bld) [#/Vol] 303 10*3/uL Normal 150-450 [facility] Comment on above: Performed By: #### L 500.4050, L100.0100 #### [facility] [address] [place], [address] RBC (Bld) [#/Vol] 4.37 10*6/uL Normal 4.2-5.4 [facility] Comment on above: Performed By: #### L 500.4050, L100.0100 #### [facility] [address] [place], [address] RDW SD 48.6 fl High 35.1-43.9 [facility] Comment on above: Performed By: #### L 500.4050, L100.0100 #### [facility] [address] [place], [address] WBC (Bld) [#/Vol] 2.5 10*3/uL Low 4.4-11.0 [facility] Comment on above: Performed By: #### L 500.4050, L100.0100 #### [facility] [address] [place], [address] Carbon dioxide, total [Moles /volume] in Central venous bloodOrdered By: Candice Aguirre on 12-22-2024 CO2 [Moles/Vol] 20.6 mmol/L Low 21.0-32.0 [facility] Chloride assayOrdered By: Thomas Aguirre on 12-22-2024 Chloride [Moles/Vol] 106 mmol/L 98-108 [facility] Comprehensive Metabolic Prof ilon 12-22-2024 Albumin [Mass/Vol] 4.0 g/dL Normal 3.5-5.0 [facility] Comment on above: Performed By: #### L 500.4050, L100.0100 #### [facility] [address] [place], [address] Albumin/Globulin [Mass ratio] 1.5 {ratio} Normal 0.9-2.4 [facility] Comment on above: Performed By: #### L 500.4050, L100.0100 #### [facility] [address] [place], [address] ALK PHOS 93 U/L Normal 35-104 [facility] Comment on above: Performed By: #### L 500.4050, L100.0100 #### [facility] [address] [place], [address] ALT [Catalytic activity/Vol] 25 U/L Normal <=34 [facility] Comment on above: Performed By: #### L 500.4050, L100.0100 #### [facility] [address] [place], [address] AST [Catalytic activity/Vol] 25 U/L Normal <=31 [facility] Comment on above: Performed By: #### L 500.4050, L100.0100 #### [facility] [address] [place], [address] Bilirubin [Mass/Vol] 0.26 mg/dL Normal 0.00-1.30 [facility] Comment on above: Performed By: #### L 500.4050, L100.0100 #### [facility] [address] [place], [address] BUN/CRE 14.9 RATIO Normal 10-20 [facility] Comment on above: Performed By: #### L 500.4050, L100.0100 #### [facility] [address] [place], [address] Calcium [Mass/Vol] 9.0 mg/dL Normal 7.6-11.0 [facility] Comment on above: Performed By: #### L 500.4050, L100.0100 #### [facility] [address] [place], [address] Chloride [Moles/Vol] 106 mmol/L Normal 98-108 [facility] Comment on above: Performed By: #### L 500.4050, L100.0100 #### [facility] [address] [place], [address] CO2 [Moles/Vol] 20.6 mmol/L Low 21.0-32.0 [facility] Comment on above: Performed By: #### L 500.4050, L100.0100 #### [facility] [address] [place], [address] Creatinine [Mass/Vol] 0.86 mg/dL Normal 0.70-1.20 [facility] Comment on above: Performed By: #### L 500.4050, L100.0100 #### [facility] [address] [place], [address] ECRCL 123.59 ml/min Normal 50-250 [facility] Comment on above: Performed By: #### L 500.4050, L100.0100 #### [facility] [address] [place], [address] GAP 11 Normal 5-15 [facility] Comment on above: Performed By: #### L 500.4050, L100.0100 #### [facility] [address] [place], [address] GFR/1.73 sq M.predicted among non-blacks MDRD (S/P/Bld) [Vol rate/Area] 95 mL/min/{1.73_m2} Normal >60 [facility] Comment on above: Result Comment: mL/m in/1.73m2 CKD-EPI Creatinine Equation (2020) Performed By: #### L 500.4050, L100.0100 #### [facility] [address] [place], [address] Globulin (S) [Mass/Vol] 2.7 g/dL Normal 2.2-4.2 [facility] Comment on above: Performed By: #### L 500.4050, L100.0100 #### [facility] [address] [place], [address] Glucose [Mass/Vol] 85 mg/dL Normal 70-99 [facility] Comment on above: Performed By: #### L 500.4050, L100.0100 #### [facility] [address] [place], [address] Potassium [Moles/Vol] 3.7 mmol/L Normal 3.3-5.1 [facility] Comment on above: Performed By: #### L 500.4050, L100.0100 #### [facility] [address] [place], [address] Sodium [Moles/Vol] 138 mmol/L Normal 133-145 [facility] Comment on above: Performed By: #### L 500.4050, L100.0100 #### [facility] [address] [place], [address] T PROT 6.7 g/dL Normal 5.9-8.4 [facility] Comment on above: Performed By: #### L 500.4050, L100.0100 #### [facility] [address] [place], [address] Urea nitrogen [Mass/Vol] 13 mg/dL Normal 4-19 [facility] Comment on above: Performed By: #### L 500.4050, L100.0100 #### [facility] [address] [place], [address] Eosinophil percentageOrdered By: Candice Aguirre on 12-22-2024 Eosinophils/100 WBC (Bld) 4.8 % 0-5 [facility] Erythrocyte distribution wid th ratioOrdered By: Candice Aguirre on 12-22-2024 Erythrocyte distribution width (RBC) [Ratio] 14.7 % High 11.6-14.6 [facility] Erythrocyte distribution wid th standard deviationOrdered By: [facility] on 12-22-2024 Erythrocyte distribution width (RBC) [Ratio] 48.6 fl High 35.1-43.9 [facility] Glomerular filtration rate ( GFR) estimation/1.73 sq m using serum, plasma, or whole bOrdered By: Candice Aguirre on 12-22-2024 GFR/1.73 sq M.predicted among non-blacks MDRD (S/P/Bld) [Vol rate/Area] 95 mL/min/{1.73_m2} >60 [facility] Comment on above: mL/min/1.73m2 CKD-EP I Creatinine Equation (2020) Hematocrit Auto (Bld) [Volum e fraction]Ordered By: Candice Aguirre on 12-22-2024 Hematocrit (Bld) [Volume fraction] 39.6 % 37-47 [facility] Hemoglobin measurementOrdere d By: Candice Aguirre on 12-22-2024 Hemoglobin (Bld) [Mass/Vol] 13.9 g/dL 12.0-15.0 [facility] Immature granulocytes/100 WB C Auto (Bld)Ordered By: Candice Aguirre on 12-22-2024 Immature granulocytes/100 WBC (Bld) 0.000 % 0.0-0.9 [facility] Comment on above: IG% - Immature Granu locytes (promyelocytes, myelocytes and metamyelocytes) > 1% indicates that a LEFT SHIFT is Present. Ketones Test strip Ql (U)Ord ered By: Christy Horton on 12-22-2024 Ketones Ql (U) Negative Negative [facility] - Chemistry and C hemistry - challengeOrdered By: Candice Aguirre on 12-22-2024 AST [Catalytic activity/Vol] 25 U/L <32 [facility] MCV (mean corpuscular volume ) determinationOrdered By: Candice Aguirre on 12-22-2024 MCV (RBC) [Entitic vol] 90.6 fL 81-[address] [facility] Mean corpuscular hemoglobin (MCH) determinationOrdered By: Candice Aguirre on 12-22-2024 MCH (RBC) [Entitic mass] 31.8 pg 27.0-32.0 [facility] Mean corpuscular hemoglobin concentration (MCHC) determinationOrdered By: Candice Aguirre on 12-22-2024 MCHC (RBC) [Mass/Vol] 35.1 g/dL 32-36 [facility] Mean platelet volume determi nationOrdered By: Candice Aguirre on 12-22-2024 Platelet mean volume (Bld) [Entitic vol] 9.2 fL 6.2-12.0 [facility] Microscopic analysis of urin e for red blood cells (RBC)Ordered By: Christy Horton on 12-22-2024 Microscopic analysis of urine for red blood cells (RBC) 0 SEEN /hpf 0-5 [facility] Monocyte percentageOrdered B y: Candice Aguirre on 12-22-2024 Monocytes/100 WBC (Bld) 22.2 % High 0-[address] [facility] Mucus LM Ql (Urine sed)Order ed By: Christy Horton on 12-22-2024 Mucus Ql (Urine sed) 0 SEEN /hpf [facility] Neutrophil percentageOrdered By: Candice Aguirre on 12-22-2024 Neutrophils/100 WBC (Bld) 26.6 % Low 47-70 [facility] Nitrite Test strip Ql (U)Ord ered By: Christy Horton on 12-22-2024 Nitrite Ql (U) Negative Negative [facility] Nucleated red blood cell per centageOrdered By: Candice Aguirre on 12-22-2024 Nucleated RBC/100 WBC (Bld) [Ratio] 0 % 0-5 [facility] Oncology Visit Reporton 12-06 Oncology Visit Report [facility] [address] [place] [address] OFFICE VISIT Date of Service: 12/22/24921 MR#: [id number] Acct: [id number] Name: SE JEFFERS Rep #: 43 : 2000 From: Christy Horton NP [employer] Age/Sex: 24/F [place] [facility] [place]: Signed HPI Subjective Date of Service 12/22/24 Chief Complaint Hodgkin's lymphoma History of Present Illness 24-year-old female while residing in [place] presented with painless enlargement of right neck lymph nodes. There were no B symptoms. September 02, 2024 CT soft tissue of the neck with contrast: Adenopathy at the thoracic inlet, right juxta clavicular region, right axilla and the visualized superior mediastinum. The largest lymph node m ass was in the left para-aortic space measuring 7.7 cm in maximum diameter. September 16, 2024 PET/CT initial staging: Multiple prominent FDG avid right more than left lower cervical, supraclavicular and mediastinal lymph nodes, no FDG avid lymphadenopathy below the diaphragm, no abnormal FDG uptake in the spleen, heterogeneous FDG uptake in the axial marrow nonspecific. [place] 5. September 24, 2024 right cervical lymph node core needle biopsy: Classical Hodgkin's lymphoma. September 30, 2024 pretreatment ESR not elevated at 13. Initial workup was in [place], patient was clinical stage IIA favorable/unfavorabl e risk group because of involvement of more than 3 lymph node areas. She received 2 cycles of ABVD (day 1 and 15) November 26, 2024 PET/CT restaging following 2 cycles of ABVD: Significant interval decreased in the extent of FDG avid malignant disease developed down to 3. Interval History The patient is presenting to clinic today accompanied by mother, for an evaluation anticipating she will begin c3 d15 AVD. + nausea, grade 1. No emesis. Antiemetics effective. + severe constipation days 2-8, taking docusate sodium and senna 8.6 mg daily with minimal results. Now resolved. LBM 12/21/24 + reflux also days 2-4. Taking Pepcid daily. Did eat some fried foods that exacerbated reflux. Reports 58 oz of PO fluid intake per day. Reports intermittent numbness/tingling beginning anterior shoulder radiating into RUE x 2 days last week, following extended use of RUE. Has not reoccurred. LMP 12/22/24. Denies fever/chills, sweats, dizziness, CP, palpitations, cough, SOB, abd pain, dysuria, hematuria, swelling of her extremities, any episodes of bleeding/bruising. [facility] Medical History Encounter for chemotherapy management Acne Asthma Dyslipidemia Prediabetes Migraine headache Other specified complication of vascular prosthetic devices, implants and grafts, initial encounter Hodgkin lymphoma Anxiety and depression pre diabetic history of anxiety and depression Surgical History H/O lymph node biopsy H/O wisdom tooth extraction History of right knee surgery History of tonsillectomy Family History Grandfather Diabetes Grandmother Cancer Lung, smoker. 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 Smoking Status: Never smoker alcohol intake: never substance use type: does not use caffeine: Yes what type of physical activity do you participate in: walking seatbelt use: always do you feel safe at home: Yes ROS ROS Narrative Negative except as documented in the interval HPI Intake Vital Signs 12/08/24 08:39 12/22/24 09:24 12/22/24 09:31 Height 5 ft 3 in 5 ft 3 in 5 ft 3 in Weight: 264 lb 5 oz BMI 46.7 BP 124/79 H Blood Pressure Location Lt brachial Position Sitting Respiration 18 Pulse 74 Pulse Source Monitor Temp 98.2 F Temperature Source Temporal Artery Pulse Oximetry (%) 100 Oxygen Delivery Method room air Intake Is patient in pain?: No Allergies ibuprofen Allergy (Verified 12/22/24 09:29) Nausea Penicillins (PCN) Allergy (Verified 12/22/24 09:29) Rash Medications ???Medication ???Instructions ???Recorded ???Confirmed ???Type loratadine 10 mg capsule 10 mg PO DAILY 04/03/21 12/22/24 H istory spironolactone 100 mg tablet 200 mg (2 x 100 mg) PO QDAY #60 12/22/24 Rx tabs etonogestrel 0.12 mg-ethinyl 1 vag ring vaginal ONCE 3 weeks #3 03/29/24 12/22/24 Rx estradiol 0.015 mg/24 hr vaginal ea ring (NuvaRing) alprazolam 0.25 mg tablet (Xanax) 0.25 mg PO QDAY PRN 11/17/2412/06 History famotidine 20 mg tablet (Pepcid) 20 mg PO QDAY 11/17/24 12/22/24 Hi story ondansetron 4 mg disintegrating 4 mg PO Q8H PRN 0 (more content not included)... Normal [facility] Platelet countOrdered By: Thomas Aguirre on 12-22-2024 Platelets (Bld) [#/Vol] 303 10*3/uL 150-450 [facility] Potassium measurement (mass/ volume)Ordered By: Candice Aguirre on 12-22-2024 Potassium (Unsp spec) [Mass/Vol] 3.7 mmol/L 3.3-5.1 [facility] Protein Test strip Ql (U)Ord ered By: Christy Horton on 12-22-2024 Protein Ql (U) Negative Negative [facility] RBC Auto (Bld) [#/Vol]Ordere d By: Candice Aguirre on 12-22-2024 RBC (Bld) [#/Vol] 4.37 10*6/uL 4.2-5.4 [facility] Serum creatinine measurement (mass/volume)Ordered By: Candice Aguirre on 12-22-2024 Creatinine [Mass/Vol] 0.86 mg/dL 0.70-1.20 [facility] Serum globulin measurementOr dered By: Candice Aguirre on 12-22-2024 Globulin (S) [Mass/Vol] 2.7 g/dL 2.2-4.2 [facility] Serum glucose measurement (m ass/volume)Ordered By: Candice Aguirre on 12-22-2024 Glucose [Mass/Vol] 85 mg/dL 70-99 [facility] Serum or plasma alanine dillard otransferase (ALT) measurementOrdered By: Candice Aguirre on 12-22-2024 ALT [Catalytic activity/Vol] 25 U/L <35 [facility] Serum or plasma albumin breanne urement (mass/volume)Ordered By: Candice Aguirre on 12-22-2024 Albumin [Mass/Vol] 4.0 g/dL 3.5-5.0 [facility] Serum or plasma albumin/glob ulin mass ratioOrdered By: Candice Aguirre on 12-22-2024 Albumin/Globulin [Mass ratio] 1.5 {ratio} 0.9-2.4 [facility] Serum or plasma alkaline bart sphatase measurementOrdered By: Candice Aguirre on 12-22-2024 ALP [Catalytic activity/Vol] 93 U/L 35-104 [facility] Serum or plasma calcium breanne urement (mass/volume)Ordered By: Candice Aguirre on 12-22-2024 Calcium [Mass/Vol] 9.0 mg/dL 7.6-11.0 [facility] Serum or plasma urea nitroge n measurement (mass/volume)Ordered By: Candice Carla on 12-22-2024 Urea nitrogen [Mass/Vol] 13 mg/dL 4-19 [facility] Sodium levelOrdered By: Modesto eli Jose Alfredo on 12-22-2024 Sodium [Moles/Vol] 138 mmol/L 133-145 [facility] Squamous epithelial cells de tection in urine sediment by light microscopyOrdered By: Christy Horton on 12-22-2024 Epithelial cells.squamous LM Ql (Urine sed) 0-5 SEEN /hpf - [facility] Total proteinOrdered By: Venkatesh hendrix Carla on 12-22-2024 Protein [Mass/Vol] 6.7 g/dL 5.9-8.4 [facility] Urinalysis, Completeon 12-22 EPI,SQUAMOUS 0-5 SEEN Normal -10 [facility] Comment on above: Order Comment: MIYA CTOR TO SPECIFY Performed By: #### L 100.0100, L500.4050 #### [facility] [address] [place], [address] BACTERIA 0 SEEN Normal None Seen [facility] Comment on above: Order Comment: MIYA CTOR TO SPECIFY Performed By: #### L 100.0100, L500.4050 #### [facility] [address] [place], [address] Mucus Ql (Urine sed) 0 SEEN Normal [facility] Comment on above: Order Comment: MIYA CTOR TO SPECIFY Performed By: #### L 100.0100, L500.4050 #### [facility] [address] [place], [address] RBC 0 SEEN Normal 0-5 [facility] Comment on above: Order Comment: MIYA CTOR TO SPECIFY Performed By: #### L 100.0100, L500.4050 #### [facility] [address] [place], [address] WBC 0 SEEN Normal 0-5 [facility] Comment on above: Order Comment: COLLE CTOR TO SPECIFY Performed By: #### L 100.0100, L500.4050 #### [facility] [address] [place], [address] Urine clarityOrdered By: Yeimy Horton on 12-22-2024 Clarity (U) Clear Clear [facility] Urine color determinationOrd ered By: Christy Horton on 12-22-2024 Color (U) Yellow Yellow [facility] Urine glucose detectionOrder ed By: Christy Horton on 12-22-2024 Glucose Ql (U) Normal mg/dl Normal [facility] Urine leukocyte esterase det ection by dipstickOrdered By: Christy Horton on 12-22-2024 Leukocyte esterase Test strip Ql (U) Negative Negative [facility] Urine pHOrdered By: Christy ya on 12-22-2024 pH (U) 7.0 [pH] 5.0 - 8.0 [facility] Urine sediment bacteria coun t by microscopy (number/high power field)Ordered By: Christy Horton on 12-22-2024 Bacteria LM.HPF (Urine sed) [#/Area] 0 /[HPF] None Seen [facility] Urine specific gravity measu rementOrdered By: Christy Horton on 12-22-2024 Specific gravity (U) [Rel density] 1.010 1.002-1.030 [facility] Urine urobilinogen measureme ntOrdered By: Christy Horton on 12-22-2024 Urobilinogen Ql (U) Normal mg/dl Normal [facility] White blood cell (WBC) count Ordered By: Candice Agurire on 12-22-2024 WBC (Bld) [#/Vol] 2.5 10*3/uL Low 4.4-11.0 [facility] White blood cell countOrdere d By: Christy Horton on 12-22-2024 White blood cell count 0 SEEN /hpf 0-[address] [facility] CBC W/Diff, Automatedon Absolute Neut Normal 2.0-7.7 [facility] Comment on above: Result Comment: NO S PECIMEN COLLECTED Performed By: #### L 100.0100, L500.4050 #### [facility] [address] [place], [address] HCT Normal 37-47 [facility] Comment on above: Result Comment: NO S PECIMEN COLLECTED Performed By: #### L 100.0100, L500.4050 #### [facility] [address] [place], [address] HGB Normal 12.0-15.0 [facility] Comment on above: Result Comment: NO S PECIMEN COLLECTED Performed By: #### L 100.0100, L500.4050 #### [facility] [address] [place], [address] MCH Normal 27.0-32.0 [facility] Comment on above: Result Comment: NO S PECIMEN COLLECTED Performed By: #### L 100.0100, L500.4050 #### [facility] [address] [place], [address] MCHC Normal 32-36 [facility] Comment on above: Result Comment: NO S PECIMEN COLLECTED Performed By: #### L 100.0100, L500.4050 #### [facility] [address] [place], [address] MCV Normal 81-99 [facility] Comment on above: Result Comment: NO S PECIMEN COLLECTED Performed By: #### L 100.0100, L500.4050 #### [facility] [address] [place], [address] NEUT% Normal 47-70 [facility] Comment on above: Result Comment: NO S PECIMEN COLLECTED Performed By: #### L 100.0100, L500.4050 #### [facility] [address] [place], [address] PLT Normal 150-450 [facility] Comment on above: Result Comment: NO S PECIMEN COLLECTED Performed By: #### L 100.0100, L500.4050 #### [facility] [address] [place], [address] RBC Normal 4.2-5.4 [facility] Comment on above: Result Comment: NO S PECIMEN COLLECTED Performed By: #### L 100.0100, L500.4050 #### [facility] [address] [place], [address] RDW CV Normal 11.6-14.6 [facility] Comment on above: Result Comment: NO S PECIMEN COLLECTED Performed By: #### L 100.0100, L500.4050 #### [facility] [address] [place], [address] RDW SD Normal 35.1-43.9 [facility] Comment on above: Result Comment: NO S PECIMEN COLLECTED Performed By: #### L 100.0100, L500.4050 #### [facility] [address] [place], [address] WBC Normal 4.4-11.0 [facility] Comment on above: Result Comment: NO S PECIMEN COLLECTED Performed By: #### L 100.0100, L500.4050 #### [facility] [address] [place], [address] Comprehensive Metabolic Prof ilon 12-08-2024 ALB Normal 3.5-5.0 [facility] Comment on above: Result Comment: NO S PECIMEN COLLECTED Performed By: #### L 100.0100, L500.4050 #### [facility] [address] [place], [address] ALK PHOS Normal 35-104 [facility] Comment on above: Result Comment: NO S PECIMEN COLLECTED Performed By: #### L 100.0100, L500.4050 #### [facility] [address] [place], [address] ALT Normal <=34 [facility] Comment on above: Result Comment: NO S PECIMEN COLLECTED Performed By: #### L 100.0100, L500.4050 #### [facility] [address] [place], [address] AST Normal <=31 [facility] Comment on above: Result Comment: NO S PECIMEN COLLECTED Performed By: #### L 100.0100, L500.4050 #### [facility] [address] [place], [address] BUN Normal 4-19 [facility] Comment on above: Result Comment: NO S PECIMEN COLLECTED Performed By: #### L 100.0100, L500.4050 #### [facility] [address] [place], [address] BUN/CRE Normal 10-20 [facility] Comment on above: Result Comment: NO S PECIMEN COLLECTED Performed By: #### L 100.0100, L500.4050 #### [facility] [address] [place], [address] Calcium Normal 7.6-11.0 [facility] Comment on above: Result Comment: NO S PECIMEN COLLECTED Performed By: #### L 100.0100, L500.4050 #### [facility] [address] [place], [address] CL Normal 98-108 [facility] Comment on above: Result Comment: NO S PECIMEN COLLECTED Performed By: #### L 100.0100, L500.4050 #### [facility] [address] [place], [address] CO2 Normal 21.0-32.0 [facility] Comment on above: Result Comment: NO S PECIMEN COLLECTED Performed By: #### L 100.0100, L500.4050 #### [facility] [address] [place], [address] CREAT,SERUM Normal 0.70-1.20 [facility] Comment on above: Result Comment: NO S PECIMEN COLLECTED Performed By: #### L 100.0100, L500.4050 #### [facility] [address] [place], [address] eGFR Normal >60 [facility] Comment on above: Result Comment: NO S PECIMEN COLLECTED Performed By: #### L 100.0100, L500.4050 #### [facility] [address] [place], [address] GAP Normal 5-15 [facility] Comment on above: Result Comment: NO S PECIMEN COLLECTED Performed By: #### L 100.0100, L500.4050 #### [facility] [address] [place], [address] GLU Normal 70-99 [facility] Comment on above: Result Comment: NO S PECIMEN COLLECTED Performed By: #### L 100.0100, L500.4050 #### [facility] [address] [place], [address] Potassium Normal 3.3-5.1 [facility] Comment on above: Result Comment: NO S PECIMEN COLLECTED Performed By: #### L 100.0100, L500.4050 #### [facility] [address] [place], [address] T BILI Normal 0.00-1.30 [facility] Comment on above: Result Comment: NO S PECIMEN COLLECTED Performed By: #### L 100.0100, L500.4050 #### [facility] [address] [place], [address] T PROT Normal 5.9-8.4 [facility] Comment on above: Result Comment: NO S PECIMEN COLLECTED Performed By: #### L 100.0100, L500.4050 #### [facility] [address] [place], [address] Comprehensive Metabolic Profil Normal 133-145 [facility] Comment on above: Result Comment: NO S PECIMEN COLLECTED Performed By: #### L 100.0100, L500.4050 #### [facility] [address] [place], [address] Oncology Visit Reporton Oncology Visit Report [facility] [address] [place] [address] OFFICE VISIT Date of Service: 12/08/24 0836 MR#: [id number] Acct: [id number] Name: SE JEFFERS Rep #: [id number] : 2000 From: Christy Horton NP [employer] Age/Sex: 24/F [place] [facility] [place] Status: Signed HPI Subjective Date of Service 12/08/24 Chief Complaint Hodgkin's lymphoma History of Present Illness 24-year-old female while residing in [place] presented with painless enlargement of right neck lymph nodes. There were no B symptoms. September 02, 2024 CT soft tissue of the neck with contrast: Adenopathy at the thoracic inlet, right juxta clavicular region, right axilla and the visualized superior mediastinum. The largest lymph node m ass was in the left para-aortic space measuring 7.7 cm in maximum diameter. September 16, 2024 PET/CT initial staging: Multiple prominent FDG avid right more than left lower cervical, supraclavicular and mediastinal lymph nodes, no FDG avid lymphadenopathy below the diaphragm, no abnormal FDG uptake in the spleen, heterogeneous FDG uptake in the axial marrow nonspecific. Deauville 5. September 24, 2024 right cervical lymph node core needle biopsy: Classical Hodgkin's lymphoma. September 30, 2024 pretreatment ESR not elevated at 13. Initial workup was in [place], patient was clinical stage IIA favorable/unfavorabl e risk group because of involvement of more than 3 lymph node areas. She received 2 cycles of ABVD (day 1 and 15) November 26, 2024 PET/CT restaging following 2 cycles of ABVD: Significant interval decreased in the extent of FDG avid malignant disease developed down to 3. Interval History The patient is presenting to clinic today accompanied by mother, for an evaluation anticipating she will begin c3 d1 AVD. + nausea, grade 1. No emesis. Typically occurs days 3-7. Has not required much zofran however, also notes nausea has become more frequent with each cycle. + mild constipation days 2-4, taking stool softener with modest results. + reflux also days 2-4. Taking Pepcid daily [facility] Medical History (Updated 12/08/24 @ 09:15 by Christy Horton [employer], [employer]) Encounter for chemotherapy management Acne Asthma Dyslipidemia Prediabetes Migraine headache Other specified complication of vascular prosthetic devices, implants and grafts, initial encounter Hodgkin lymphoma Anxiety and depression pre diabetic history of anxiety and depression Surgical History H/O lymph node biopsy H/O wisdom tooth extraction History of right knee surgery History of tonsillectomy Family History Grandfather Diabetes Grandmother Cancer Lung, smoker. 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 Smoking Status: Never smoker alcohol intake: never substance use type: does not use caffeine: Yes what type of physical activity do you participate in: walking seatbelt use: always do you feel safe at home: Yes ROS ROS Narrative Negative except as documented in the interval HPI Intake Vital Signs 12/02/24 10:11 12/08/24 08:37 12/08/24 08:39 Height 5 ft 3 in 5 ft 3 in 5 ft 3 in Weight: 261 lb 262 lb BMI 46.2 46.4 BP 112/80 109/78 Blood Pressure Location Lt brachial Lt brachial Position Sitting Sitting Respiration 18 18 Pulse 80 98 Pulse Source Monitor Monitor Temp 98.3 F 98.2 F Temperature Source Temporal Artery Temporal Artery Pulse Oximetry (%) 97 98 Oxygen Delivery Method room air room air Intake Is patient in pain?: No Allergies ibuprofen Allergy (Verified 12/08/24 08:36) Nausea Penicillins (PCN) Allergy (Verified 12/08/24 08:36) Rash Medications ???Medication ???Instructions ???Recorded ???Confirmed ???Type loratadine 10 mg capsule 10 mg PO DAILY 04/03/21 12/08/24 H istory spironolactone 100 mg tablet 200 mg (2 x 100 mg) PO QDAY #60 12/08/24 Rx tabs etonogestrel 0.12 mg-ethinyl 1 vag ring vaginal ONCE 3 weeks #3 03/29/24 12/08/24 Rx estradiol 0.015 mg/24 hr vaginal ea ring (NuvaRing) alprazolam 0.25 mg tablet (Xanax) 0.25 mg PO QDAY PRN 11/17/24 09/0 06/29 History famotidine 20 mg tablet (Pepcid) 20 mg PO QDAY 11/17/24 12/08/24 Hi story ondansetron 4 mg disintegrating 4 mg PO Q8H PRN 11/17/24 12/08/24 History tablet topiramate 100 mg tablet 100 mg PO QDAY 11/17/24 12/08/24 H istory lidocaine-prilocaine 2.5 %-2.5 % 1 applic topical ONCE PRN port 12/08/24 Rx topical cream access 30 days #30 grams Have you fallen in the past year?: No Centr (more content not included)... Normal [facility] Absolute lymphocyte countOrd ered By: Candice Aguirre on 12-02-2024 Lymphocytes Auto (Unsp spec) [#/Vol] 1.58 10*3/uL 0.83-4.51 [facility] Absolute neutrophil countOrd ered By: Candice Aguirre on 12-02-2024 Neutrophils (Bld) [#/Vol] 5.0 10*3/uL 2.0-7.7 [facility] Anion gap in Serum or Plasma Ordered By: Candice Aguirre on 12-02-2024 Anion gap [Moles/Vol] 10 mmol/L 5-15 [facility] Automated lymphocyte count a s percentage of total leukocytesOrdered By: Candice Aguirre on 12-02-2024 Lymphocytes/100 WBC Auto (Unsp spec) 21.7 % 19- [facility] BUN/creatinine ratioOrdered By: Candice Aguirre on 12-02-2024 Urea nitrogen/Creatinine [Mass ratio] 17.4 mg/mg 10-20 [facility] Basophil percentageOrdered B y: Candice Aguirre on 12-02-2024 Basophils/100 WBC (Bld) 0.8 % 0-[address] [facility] Bilirubin, totalOrdered By: Candice Aguirre on 12-02-2024 Bilirubin [Mass/Vol] mg/dL 0.00-1.30 [facility] Blood polychromasia detectio n by light microscopyOrdered By: Candice Aguirre on 12-02-2024 Polychromasia LM Ql (Bld) 1+ [facility] CBC W/Diff, Automatedon 11-06 POLYCHROMASIA 1+ Normal [facility] Comment on above: Performed By: #### L 500.4050, L501.2300, L501.5200, L100.0100 #### [facility] [address] [place], [address] REACTIVE LYMPH 2+ Normal [facility] Comment on above: Performed By: #### L 500.4050, L501.2300, L501.5200, L100.0100 #### [facility] [address] [place], [address] Carbon dioxide, total [Moles /volume] in Central venous bloodOrdered By: Candice Aguirre on 12-02-2024 CO2 [Moles/Vol] 19.3 mmol/L Low 21.0-32.0 [facility] Comment on above: Performed By: #### L 500.4050, L501.2300, L501.5200, L100.0100 #### [facility] [address] [place], [address] Chloride assayOrdered By: Thomas Aguirre on 12-02-2024 Chloride [Moles/Vol] 108 mmol/L Normal 98-108 [facility] Comment on above: Performed By: #### L 500.4050, L501.2300, L501.5200, L100.0100 #### [facility] [address] [place], [address] Comprehensive Metabolic Prof dangelo 12-02-2024 ALK PHOS 124 U/L High 35-104 [facility] Comment on above: Performed By: #### L 500.4050, L501.2300, L501.5200, L100.0100 #### [facility] [address] [place], [address] BUN/CRE 17.4 RATIO Normal 10-20 [facility] Comment on above: Performed By: #### L 500.4050, L501.2300, L501.5200, L100.0100 #### [facility] [address] [place], [address] GAP 10 Normal 5-15 [facility] Comment on above: Performed By: #### L 500.4050, L501.2300, L501.5200, L100.0100 #### [facility] [address] [place], [address] Potassium [Moles/Vol] 4.1 mmol/L Normal 3.3-5.1 [facility] Comment on above: Performed By: #### L 500.4050, L501.2300, L501.5200, L100.0100 #### [facility] [address] [place], [address] T BILI < 0.15 Normal 0.00-1.30 [facility] Comment on above: Performed By: #### L 500.4050, L501.2300, L501.5200, L100.0100 #### [facility] [address] [place], [address] T PROT 6.8 g/dL Normal 5.9-8.4 [facility] Comment on above: Performed By: #### L 500.4050, L501.2300, L501.5200, L100.0100 #### [facility] [address] [place], [address] Comprehensive Metabolic Prof ilOrdered By: Candice Aguirre on 12-02-2024 AST [Catalytic activity/Vol] 19 U/L Normal <=31 [facility] Comment on above: Performed By: #### L 500.4050, L501.2300, L501.5200, L100.0100 #### [facility] [address] [place], [address] Eosinophil percentageOrdered By: Candice Aguirre on 12-02-2024 Eosinophils/100 WBC (Bld) 2.9 % 0-5 [facility] Erythrocyte distribution wid th ratioOrdered By: Candice Aguirre on 12-02-2024 Erythrocyte distribution width (RBC) [Ratio] 13.8 % 11.6-14.6 [facility] Erythrocyte distribution wid th standard deviationOrdered By: Candice Aguirre on 12-02-2024 Erythrocyte distribution width (RBC) [Ratio] 45.1 fl High 35.1-43.9 [facility] Glomerular filtration rate ( GFR) estimation/1.73 sq m using serum, plasma, or whole bOrdered By: Candice Aguirre on 12-02-2024 GFR/1.73 sq M.predicted among non-blacks MDRD (S/P/Bld) [Vol rate/Area] 121 mL/min/{1.73_m2} Normal >60 [facility] Comment on above: mL/min/1.73m2 CKD-EP I Creatinine Equation (2020) Result Comment: mL/m in/1.73m2 CKD-EPI Creatinine Equation (2020) Performed By: #### L 500.4050, L501.2300, L501.5200, L100.0100 #### [facility] [address] [place], [place], [address] Hematocrit Auto (Bld) [Volum e fraction]Ordered By: Candice Aguirre on 12-02-2024 Hematocrit (Bld) [Volume fraction] 39.4 % 37-47 [facility] Hemoglobin measurementOrdere d By: Candice Aguirre on 12-02-2024 Hemoglobin (Bld) [Mass/Vol] 13.8 g/dL 12.0-15.0 [facility] Immature granulocytes/100 WB C Auto (Bld)Ordered By: Candice Aguirre on 12-02-2024 Immature granulocytes/100 WBC (Bld) 1.000 % High 0.0-0.9 [facility] Comment on above: IG% - Immature Granu locytes (promyelocytes, myelocytes and metamyelocytes) > 1% indicates that a LEFT SHIFT is Present. MCV (mean corpuscular volume ) determinationOrdered By: Candice Aguirre on 12-02-2024 MCV (RBC) [Entitic vol] 90.2 fL 81-[address] [facility] Magnesiumon 12-02-2024 Magnesium [Mass/Vol] 2.0 mg/dL Normal 1.5-2.2 [facility] Comment on above: Performed By: #### L 500.4050, L501.2300, L501.5200, L100.0100 #### [facility] [place], [address] Magnesium measurement (mass/ volume)Ordered By: Candice Aguirre on 12-02-2024 Magnesium (Unsp spec) [Mass/Vol] 2.0 mg/dL 1.5-2.2 [facility] Mean corpuscular hemoglobin (MCH) determinationOrdered By: Candice Aguirre on 12-02-2024 MCH (RBC) [Entitic mass] 31.6 pg 27.0-32.0 [facility] Mean corpuscular hemoglobin concentration (MCHC) determinationOrdered By: Candice Aguirre on 12-02-2024 MCHC (RBC) [Mass/Vol] 35.0 g/dL 32-36 [facility] Mean platelet volume determi nationOrdered By: Candice Aguirre on 12-02-2024 Platelet mean volume (Bld) [Entitic vol] 10.3 fL 6.2-12.0 [facility] Monocyte percentageOrdered B y: Candice Aguirre on 12-02-2024 Monocytes/100 WBC (Bld) 5.3 % 0-[address] [facility] Neutrophil percentageOrdered By: Candice Aguirre on 12-02-2024 Neutrophils/100 WBC (Bld) 68.3 % 47-70 [facility] Nucleated red blood cell per centageOrdered By: Candice Aguirre on 12-02-2024 Nucleated RBC/100 WBC (Bld) [Ratio] 0 % 0-5 [facility] Oncology Visit Reporton 11-06 Oncology Visit Report [facility] [address] [place] [address] OFFICE VISIT Date of Service: 12/02/24 1000 MR#: [id number] Acct: [id number] Name: SE JEFFERS Rep #: [id number] : 2000 From: Candice Aguirre MD Age/Sex: 24/F [place] [facility] [place]: Signed HPI Subjective Date of Service 12/02/24 Chief Complaint Hodgkin's lymphoma History of Present Illness 24-year-old female while residing in [place] presented with painless enlargement of right neck lymph nodes. There were no B symptoms. September 02, 2024 CT soft tissue of the neck with contrast: Adenopathy at the thoracic inlet, right juxta clavicular region, right axilla and the visualized superior mediastinum. The largest lymph node m ass was in the left para-aortic space measuring 7.7 cm in maximum diameter. September 16, 2024 PET/CT initial staging: Multiple prominent FDG avid right more than left lower cervical, supraclavicular and mediastinal lymph nodes, no FDG avid lymphadenopathy below the diaphragm, no abnormal FDG uptake in the spleen, heterogeneous FDG uptake in the axial marrow nonspecific. De[place]ville 5. September 24, 2024 right cervical lymph node core needle biopsy: Classical Hodgkin's lymphoma. September 30, 2024 pretreatment ESR not elevated at 13. Initial workup was in [place], patient was clinical stage IIA favorable/unfavorabl e risk group because of involvement of more than 3 lymph node areas. She received 2 cycles of ABVD (day 1 and 15) November 26, 2024 PET/CT restaging following 2 cycles of ABVD: Significant interval decreased in the extent of FDG avid malignant disease developed down to 3. [facility] Medical History (Updated 12/02/24 @ 10:[address] Candice Aguirre MD) Acne Asthma Dyslipidemia Prediabetes Migraine headache Other specified complication of vascular prosthetic devices, implants and grafts, initial encounter Hodgkin lymphoma Anxiety and depression pre diabetic history of anxiety and depression Surgical History (Updated 12/02/24 @ 10:10 by Lucy Barger) H/O lymph node biopsy H/O wisdom tooth extraction History of right knee surgery History of tonsillectomy Family History (Updated 12/02/24 @ 10:09 by Lucy Barger) Grandfather Diabetes Grandmother Cancer Lung, smoker. 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 Smoking Status: Never smoker alcohol intake: never substance use type: does not use caffeine: Yes what type of physical activity do you participate in: walking seatbelt use: always do you feel safe at home: Yes ROS Constitutional Constitutional: Denies fatigue, fever(s) or weight loss Eyes Eyes: Reports systems reviewed and no addt'l complaints, except as documented ENT HEENT: Reports systems reviewed and no addt'l complaints, except as documented; Denies mouth lesions Cardiovascular Cardiovascular: Reports systems reviewed and no addt'l complaints, except as documented; Denies chest pain with activity or edema Respiratory/Chest Respiratory/Chest: Reports systems reviewed and no addt'l complaints, except as documented and other Details: Has mild asthma uses a rescue inhaler infrequently ; Denies cough or dyspnea Gastrointestinal Gastrointestinal: Reports systems reviewed and no addt'l complaints, except as documented, nausea and other Details: Nausea manageable with Zofran ; Denies change in bowel habits or vomiting Genitourinary Genitourinary: Reports systems reviewed and no addt'l complaints, except as documented Musculoskeletal Musculoskeletal: Reports systems reviewed and no addt'l complaints, except as documented; Denies back pain Integumentary Integumentary: Reports systems reviewed and no addt'l complaints, except as documented; Denies new lesions Neurologic Neurologic: Reports systems reviewed and no addt'l complaints, except as documented; Denies focal weakness or paresthesias Psychiatric Psychiatric: Reports systems reviewed and no addt'l complaints, except as documented, anxiety, panic attacks and other Details: Patient and her mother confirmed that she is quite anxious around treatment and experienced some panic attacks. Endocrine Endocrinology: Reports systems reviewed and no addt'l complaints, except as documented Hematologic/Lymphati c Hematologic/Lymphati c: Reports systems reviewed and no addt'l complaints, except as documented and other Details: Can no longer feel the enlarged lymph nodes in the neck but generally avoids touching the area ; Denies lymphadenopathy Intake Vital Signs 03/29/24 08:09 12/02/24 10:01 12/02/24 10:11 Height 5 ft 3 in 5 ft 3 in 5 ft 3 in Weight: 122.924 kg 118.388 kg (more content not included)... Normal [facility] Phosphoruson 12-02-2024 Phosphate [Mass/Vol] 2.5 mg/dL Low 2.7-4.5 [facility] Comment on above: Performed By: #### L 500.4050, L501.2300, L501.5200, L100.0100 #### [facility] [address] [place], [address] Platelet countOrdered By: Thomas Aguirre on 12-02-2024 Platelets (Bld) [#/Vol] 333 10*3/uL 150-450 [facility] Potassium measurement (mass/ volume)Ordered By: Candice Aguirre on 12-02-2024 Potassium (Unsp spec) [Mass/Vol] 4.1 mmol/L 3.3-5.1 [facility] RBC Auto (Bld) [#/Vol]Ordere d By: Candice Aguirre on 12-02-2024 RBC (Bld) [#/Vol] 4.37 10*6/uL 4.2-5.4 [facility] Serum creatinine measurement (mass/volume)Ordered By: Candice Aguirre on 12-02-2024 Creatinine [Mass/Vol] 0.71 mg/dL Normal 0.70-1.20 [facility] Comment on above: Performed By: #### L 500.4050, L501.2300, L501.5200, L100.0100 #### [facility] [address] [place], [address] Serum globulin measurementOr dered By: Candice Aguirre on 12-02-2024 Globulin (S) [Mass/Vol] 2.8 g/dL Normal 2.2-4.2 [facility] [place] Comment on above: Performed By: #### L 500.4050, L501.2300, L501.5200, L100.0100 #### [facility] [address] [place], [address] Serum glucose measurement (m ass/volume)Ordered By: Candice Aguirre on 12-02-2024 Glucose [Mass/Vol] 104 mg/dL High 70-99 [facility] Comment on above: Performed By: #### L 500.4050, L501.2300, L501.5200, L100.0100 #### [facility] [address] [place], [address] Serum or plasma alanine dillard otransferase (ALT) measurementOrdered By: Candice Aguirre on 12-02-2024 ALT [Catalytic activity/Vol] 22 U/L Normal <=34 [facility] Comment on above: Performed By: #### L 500.4050, L501.2300, L501.5200, L100.0100 #### [facility] [address] [place], [address] Serum or plasma albumin breanne urement (mass/volume)Ordered By: Candice Aguirre on 12-02-2024 Albumin [Mass/Vol] 4.0 g/dL Normal 3.5-5.0 [facility] Comment on above: Performed By: #### L 500.4050, L501.2300, L501.5200, L100.0100 #### [facility] [address] [place], [address] Serum or plasma albumin/glob ulin mass ratioOrdered By: Modestoalcira Aguirre on 12-02-2024 Albumin/Globulin [Mass ratio] 1.4 {ratio} Normal 0.9-2.4 [facility] Comment on above: Performed By: #### L 500.4050, L501.2300, L501.5200, L100.0100 #### [facility] [address] [place], [address] Serum or plasma alkaline bart sphatase measurementOrdered By: Modestoalcira Aguirre on 12-02-2024 ALP [Catalytic activity/Vol] 124 U/L High 35-104 [facility] Serum or plasma calcium breanne urement (mass/volume)Ordered By: Candice Aguirre on 12-02-2024 Calcium [Mass/Vol] 9.1 mg/dL Normal 7.6-11.0 [facility] Comment on above: Performed By: #### L 500.4050, L501.2300, L501.5200, L100.0100 #### [facility] [address] [place], [address] Serum or plasma urea nitroge n measurement (mass/volume)Ordered By: Candice Crala on 12-02-2024 Urea nitrogen [Mass/Vol] 12 mg/dL Normal 4-19 [facility] Comment on above: Performed By: #### L 500.4050, L501.2300, L501.5200, L100.0100 #### [facility] [address] [place], [address] Sodium levelOrdered By: Modesto Jameslivia on 12-02-2024 Sodium [Moles/Vol] 138 mmol/L Normal 133-145 [facility] Comment on above: Performed By: #### L 500.4050, L501.2300, L501.5200, L100.0100 #### [facility] [address] [place], [place], [id number] Total proteinOrdered By: Venkatesh Aguirre on 12-02-2024 Protein [Mass/Vol] 6.8 g/dL 5.9-8.4 [facility] White blood cell (WBC) count Ordered By: Candice Aguirre on 12-02-2024 WBC (Bld) [#/Vol] 7.3 10*3/uL 4.4-11.0 [facility] Divinity Professor Office Visit Reporton 03-29-2024 Divinity Professor Office Visit Report [facility] [address], [address] [place] [address] OFFICE VISIT Date of Service: 03/29/24 MR#: [id number] Acct: [id number] Name: SE JEFFERS Rep #: [id number] : 2000 Provider: SYDNEY Tadeo Age/Sex: 24/F Location: [facility] [place] Status: Signed Intake Vital Signs 04/04/23 09:57 03/29/24 08:09 Height 5 ft 3 in 5 ft 3 in Weight: 271 lb BMI 47.9 BP 135/85 H 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) Chief Complaint: annual Pain Medicine Physician Required: No Is patient in pain?: No Allergies ibuprofen Allergy (Verified 03/29/24 08:12) Nausea Penicillins (PCN) Allergy (Verified 03/29/24 08:12) Rash Medications ???Medication ???Instructions ???Recorded ???Confirmed ???Type topiramate 15 mg sprinkle capsule 75 mg PO DAILY 10/30/18 03/29/24 History (Topamax) loratadine 10 mg capsule 10 mg PO DAILY 04/03/21 03/29/24 History topiramate 25 mg tablet (Topamax) 75 mg (3 x 25 mg) PO DAILY #120 04/04/23 03/29/24 Rx tabs spironolactone 100 mg tablet 200 mg (2 x 100 mg) PO QDAY #60 12/25/23 03/29/24 Rx tabs clobetasol 0.05 % topical ointment 1 applic topical BID 1 week #30 03/29/24 03/29/24 Rx grams etonogestrel 0.12 mg-ethinyl 1 vag ring vaginal ONCE 3 weeks #3 03/29/24 03/29/24 Rx estradiol 0.015 mg/24 hr vaginal ea ring (NuvaRing) nystatin 100,000 unit/gram topical 1 applic topical QDAY 7 days #30 03/29/24 03/29/24 Rx ointment grams Is last menstrual period known: Yes Last Menstrual Period: 03/08/24 Post menopausal: No Patient : No : No Control Method: nuvaring [facility] Medical History Anxiety and depression pre diabetic history of anxiety and depression Surgical History History of right knee surgery History of tonsillectomy Family History Grandfather Diabetes Grandmother No problems noted. Social History current occupational status: student current occupation: [employer] Smoking Status: Never smoker alcohol intake: current details: social substance use type: does not use caffeine: Yes what type of physical activity do you participate in: walking seatbelt use: always do you feel safe at home: Yes History 0 Elective abortions Hx Para Spontaneous abortions Hx # Term Pregnancies Ectopic pregnancies Hx # Pregnancies Multiple births # of living children HPI Encounter for routine gynecological examination Details: SE JEFFERS is a 24 year old who presents for annual exam. She reports she occasionally feels her vaginal tissue has itching; currently in a flare. Denies discharge, odors, bleeding that is abnormal. Last PAP: 2022; normal. hpv neg History of abnormal PAP: no Last mammogram: age 38 History of abnormal mammogram: n/a Colon cancer screening: age 43 Other preventative health care screenings: no PCP Female Reproductive History Last Menstrual Period: 03/08/24 Cycle Length: 21-35 Bleeding Duration: 5 Questions: metorrhagia: No, sexually active: No, dyspareunia: No and PCB: No ROS Const Constitutional: Denies chills, fatigue, fever(s), headache(s) or weight loss Eyes Eyes: Denies change in vision ENT ENT: Denies dizziness Resp Resp: Denies cough GI GI: Denies abdominal pain, constipation or nausea : Denies difficulty voiding, dysuria, hematuria, nipple discharge, pelvic pain, prolapse symptoms, urinary incontinence, vaginal discharge, vaginal dryness, vaginal odor or vaginal pruritus Skin Skin/Breast: Denies alopecia, rash, breast mass, breast pain, breast skin changes or nipple discharge Neuro Neuro: Denies dizziness Psych Psych: Denies anxiety or depression Endo Endo: Denies cold intolerance, excessive sweating or heat intolerance Exam Const General: cooperative, healthy appearing, comfortable, no acute distress, well groomed and well hydrated Nutritional Appearance: well nourished Orientation: alert, awake and oriented x3 HENMT Head: normal to inspection and normocephalic Ears: hearing grossly normal bilaterally and external ears normal Nose: external nose normal Face and sinus: normal facial exam Eyes General: appearance normal, both eyes and all related structures Neck Neck: normal visual inspection, full ROM and no lymphadenopathy Thyroid: thyroid normal Chest Chest palpation inspection: normal inspection of the chest Breast inspection: normal inspection of the breasts and normal inspection of the axillae Breast palpation: normal palpation of the breasts, normal palpation of the axillae and no axillary lymphaden (more content not included)... Normal [facility] Basophil percentageOrdered B y: Heydi Marroquin on 04-04-2023 Chloride [Moles/Vol] 104 mmol/L 98-107 [facility] Glucose [Mass/Vol] 107 mg/dL 74-106 [facility] Comment on above: Fasting Glucose resu lt from 100 to 125 mg/dL suggests IMPAIRED HOMEOSTASIS per A.D.A. criteria. Potassium [Moles/Vol] 4.7 mmol/L 3.5-5.1 [facility] Sodium [Moles/Vol] 135 mmol/L 136-145 [facility] Cervical or vagninal specime n microscopic examination by cytology stain (reported asOrdered By: Heydi Marroquin on 04-04-2023 Cytology report Cyto stain Doc (Cvx/Vag) Comment . [facility] Comment on above: The Pap smear is a s creening test designed to aid in thedetection of premalignant and malignant conditions of theuterine cervix. It is not a diagnostic procedure andshould not be used as the sole means of detecting cervicalcancer. Both false-positive and false-negative reports dooccur. Laboratory - Chemistry and C hemistry - challengeOrdered By: Heydi Marroquin on 04-04-2023 CO2 [Moles/Vol] 28.0 mmol/L 21.0-32.0 [facility] Free T4 [Mass/Vol] 1.27 ng/dL 0.76-1.46 [facility] Urea nitrogen/Creatinine [Mass ratio] 16.6 mg/mg 10-20 [facility] Laboratory - CytologyOrdered By: Heydi Marroquin on 04-04-2023 [employer] Cyto stain Nom (Cvx/Vag) [ID] Comment . [facility] Comment on above: Elton Yadav totechnologist ([facility]) Laboratory - Miscellaneous t estsOrdered By: Heydi Marroquin on 04-04-2023 Service comment (Unsp spec) [Interp] Comment . [facility] Comment on above: This liquid based Th inPrep(R) pap test was screened withthe use of an image guided system. Service comment (Unsp spec) [Interp] . . [facility] No Panel InformationOrdered By: Heydi Marroquin on 04-04-2023 Human Papillomavirus Screen Comment . [facility] Comment on above: The HPV DNA reflex tracey butt were not met with this specimenresult therefore, no HPV testing was performed.Performed at: [address] [id number] Director: Roxy Bhatti MD, Phone: [phone] Pap Smear QC Review Comment . [facility] Comment on above: Tracey Reis ytotechnologist ([facility]) Pathology report final diagnosis Narrative Comment . [facility] Comment on above: NEGATIVE FOR INTRAEP ITHELIAL LESION OR MALIGNANCY.THIS SPECIMEN WAS RESCREENED PART OF OUR PULLER OUT PROGRAM. Estimated GFR (MDRD) Amer 91 mL/min >60 [facility] Comment on above: GFR Calc Estimated GFR (MDRD) Non-Af Amer 75 mL/min >60 [facility] Comment on above: Non- GFR Calc Thyroid Stimulating Hormone (TSH) 2.78 uIU/mL 0.358-3.74 [facility] Serum or plasma calcium breanne urement (mass/volume)Ordered By: Heydi Marroquin on 04-04-2023 Calcium [Mass/Vol] 9.4 mg/dL 8.5-10.1 [facility] Serum or plasma creatinine m easurement (mass/volume)Ordered By: Heydi Marroquin on 04-04-2023 Creatinine [Mass/Vol] 0.96 mg/dL 0.55-1.02 [facility] Comment on above: The validity of the calculated GFR & GFRAA in patients over 70 years has not been determined. Clinical correlation is essential. Serum or plasma urea nitroge n measurement (mass/volume)Ordered By: Heydi Marroquin on 04-04-2023 Urea nitrogen [Mass/Vol] 16 mg/dL 7-18 [facility] Thin prep Papanicolaou smear with manual screeningOrdered By: Heydi Marroquin on 04-04-2023 Thin prep Papanicolaou smear with manual screening 3 5-15 [facility] Basophil percentageon 2021 Bilirubin [Mass/Vol] 0.40 mg/dL 0.20-1.00 [facility] Work Phone: Comment on above: For patients on eltr ombopag therapy, use of Dimension Marcellus TBIL is not recommended. Chloride [Moles/Vol] 105 mmol/L 98-107 [facility] Work Phone: Glucose [Mass/Vol] 98 mg/dL 74-106 [facility] Work Phone: Potassium [Moles/Vol] 3.8 mmol/L 3.5-5.1 [facility] Work Phone: Protein [Mass/Vol] 7.6 g/dL 6.4-8.2 [facility] Work Phone: Sodium [Moles/Vol] 137 mmol/L 136-145 [facility] Work Phone: Laboratory - Chemistry and C hemistry - challengeon 04-03-2022 ALP [Catalytic activity/Vol] 123 U/L 45-117 [facility] Work Phone: ALT [Catalytic activity/Vol] 30 U/L 13-56 [facility] Work Phone: CO2 [Moles/Vol] 26.0 mmol/L 21.0-32.0 [facility] Work Phone: Globulin (S) [Mass/Vol] 4.3 g/dL 2.2-4.[address] [facility] Work Phone: Urea nitrogen/Creatinine [Mass ratio] 12.4 mg/mg 10-20 [facility] Work Phone: No Panel Informationon 04-03 Estimated GFR (MDRD) Amer 100 mL/min >60 [facility] Work Phone: Comment on above: GFR Calc Estimated GFR (MDRD) Non-Af Amer 83 mL/min >60 [facility] Work Phone: Comment on above: Non- GFR Calc Vitamin D 25-Hydroxy 30.8 ng/mL [facility] Work Phone: Comment on above: Vitamin D 25(OH) Sta tus Range Deficiency <20 ng/mL (50nmol/L) Insufficiency 20 - 30 ng/mL (50 - 75 nmol/L) Sufficiency 30 - 100 ng/mL (75 - 250 nmol/L) Toxicity >100 ng/mL (>250 nmol/L) Serum or plasma albumin breanne urement (mass/volume)on 04-03-2022 Albumin [Mass/Vol] 3.3 g/dL 3.2-5.0 [facility] Work Phone: Serum or plasma albumin/glob ulin mass ratioon 04-03-2022 Albumin/Globulin [Mass ratio] 0.8 {ratio} 0.9-2.4 [facility] Work Phone: Serum or plasma calcium breanne urement (mass/volume)on 04-03-2022 Calcium [Mass/Vol] 9.0 mg/dL 8.5-10.1 [facility] Work Phone: Serum or plasma creatinine m easurement (mass/volume)on 04-03-2022 Creatinine [Mass/Vol] 0.89 mg/dL 0.55-1.02 [facility] Work Phone: Comment on above: The validity of the calculated GFR & GFRAA in patients over 70 years has not been determined. Clinical correlation is essential. Serum or plasma urea nitroge n measurement (mass/volume)on 04-03-2022 Urea nitrogen [Mass/Vol] 11 mg/dL 7-18 [facility] Work Phone: Thin prep Papanicolaou smear with manual screeningon 04-03-2022 Thin prep Papanicolaou smear with manual screening 22 U/L 15-37 [facility] Work Phone: Thin prep Papanicolaou smear with manual screening 6 5-15 [facility] Work Phone: Whole blood hemoglobin A1c/t otal hemoglobin ratio (mass fraction)on 04-03-2022 HbA1c (Bld) [Mass fraction] 5.1 % 3.8-5.6 [facility] Work Phone: Comment on above: Normal < 5.7 % Predi abetic 5.7 - 6.4 % Diabetic >or= 6.5 % Please note range changes. Hemoglobin A1con 09-08-2019 HbA1c (Bld) [Mass fraction] 4.8 % Normal 0.0-5.6 [facility] Comment on above: Order Comment: Is th is specimen being sent to an external lab?->No Performed By: #### H BA1C #### [address] [id number] Comp Metabolic Panelon 09-06 Albumin [Mass/Vol] 4.0 g/dL Normal 3.5-5.0 [facility] Comment on above: Order Comment: Is th is specimen being sent to an external lab?->No Performed By: #### C MP #### [address] [address] ALP [Catalytic activity/Vol] 94 U/L Normal 35-104 [facility] Comment on above: Order Comment: Is th is specimen being sent to an external lab?->No Performed By: #### C MP #### [address] [address] ALT [Catalytic activity/Vol] 20 U/L Normal 0-31 [facility] Comment on above: Order Comment: Is th is specimen being sent to an external lab?->No Performed By: #### C MP #### [address] [address] AST [Catalytic activity/Vol] 24 U/L Normal 0-31 [facility] Comment on above: Order Comment: Is th is specimen being sent to an external lab?->No Performed By: #### C MP #### [address] [address] Bili,Total 0.4 mg/dl Normal 0.0-1.0 [facility] Comment on above: Order Comment: Is th is specimen being sent to an external lab?->No Result Comment: Premature : 1 Day 1.0-6.0 mg/dl 2 Day 6.0-8.0 mg/dl 3-5 Day 10.0-15.0 mg/dl Performed By: #### C MP #### [address] [address] Calcium [Mass/Vol] 8.7 mg/dL Normal 7.6-11.0 [facility] Comment on above: Order Comment: Is th is specimen being sent to an external lab?->No Performed By: #### C MP #### [address] [address] Chloride [Moles/Vol] 104 mmol/L Normal 96-108 [facility] Comment on above: Order Comment: Is th is specimen being sent to an external lab?->No Performed By: #### C MP #### [address] [address] CO2 [Moles/Vol] 24.0 mmol/L Normal 22.0-29.0 [facility] Comment on above: Order Comment: Is th is specimen being sent to an external lab?->No Performed By: #### C MP #### [address] [address] Creatinine [Mass/Vol] 0.85 mg/dL Normal 0.50-1.00 [facility] Comment on above: Order Comment: Is th is specimen being sent to an external lab?->No Result Comment: Premature 0.3-1.0 mg/dL Performed By: #### C MP #### [address] [address] Glucose [Mass/Vol] 81 mg/dL Normal 70-99 [facility] Comment on above: Order Comment: Is th is specimen being sent to an external lab?->No Result Comment: Criteria for Diagnosis of Diabetes(Effective 09/10/10): Fasting specimen (no caloric intake for at least 8 hours). <100 mg/dl Normal 100-125 mg/dl Increased Risk for Diabetes >125 mg/dl Diagnostic for Diabetes Random Glucose (any time of day without regard to last meal). >=200 mg/dl plus Classic Symptoms of Diabetes Performed By: #### C MP #### [address] [address] Potassium [Moles/Vol] 4.8 mmol/L Normal 3.3-5.1 [facility] Comment on above: Order Comment: Is th is specimen being sent to an external lab?->No Performed By: #### C MP #### [address] [address] Protein [Mass/Vol] 7.2 g/dL Normal 5.9-8.4 [facility] Comment on above: Order Comment: Is th is specimen being sent to an external lab?->No Performed By: #### C MP #### [address] [address] Sodium [Moles/Vol] 137 mmol/L Normal 133-145 [facility] Comment on above: Order Comment: Is th is specimen being sent to an external lab?->No Performed By: #### C MP #### [address] [address] Urea nitrogen [Mass/Vol] 15 mg/dL Normal 07-24 [facility] Comment on above: Order Comment: Is th is specimen being sent to an external lab?->No Performed By: #### C MP #### [place] [address] Hemoglobin A1con 09-07-2019 HbA1c (Bld) [Mass fraction] ----- Normal [facility] Comment on above: Order Comment: Is th is specimen being sent to an external lab?->No Result Comment: Reference Interval <5.7% 5.7%-6.4% prediabetes >/= 6.5% diabetes Targets for diabetes management: Type I <7.5% Type II <7.0% Change in reference range effective 2018 Performed By: #### H BA1C #### [place] [address] Lipid Panelon 09-07-2019 Cholesterol [Mass/Vol] 209 mg/dL High 0-189 [facility] Comment on above: Order Comment: Is th is specimen being sent to an external lab?->No Result Comment: Acceptable <190 mg/dL Borderline 190-224 mg/dL Abnormal >224 mg/dL NOTE: Reference Range change effective 03/10/18 Performed By: #### L IPID #### [address] [address] Cholesterol in HDL [Mass/Vol] 72 mg/dL Normal [facility] Comment on above: Order Comment: Is th is specimen being sent to an external lab?->No Result Comment: Acceptable >45 mg/dL Borderline 40-44 mg/dL Abnormal <40 mg/dL NOTE: Reference Range change effective 03/10/18 Performed By: #### L IPID #### [address] [id number] Cholesterol in LDL [Mass/Vol] 116 mg/dL Normal 0-119 [facility] Comment on above: Order Comment: Is th is specimen being sent to an external lab?->No Result Comment: Acceptable <120 mg/dL Borderline 120-159 mg/dL Abnormal >159 mg/dl NOTE: Reference Range change effective 03/10/18 Performed By: #### L IPID #### [address] [id number] Non-HDL Cholesterol 137 mg/dl Normal 0-149 [facility] Comment on above: Order Comment: Is th is specimen being sent to an external lab?->No Result Comment: Acceptable <150 mg/dL Borderline 150-189 mg/dL Abnormal >189 mg/dl Performed By: #### L IPID #### [address] [id number] Triglyceride [Mass/Vol] 103 mg/dL Normal 0-114 [facility] Comment on above: Order Comment: Is th is specimen being sent to an external lab?->No Result Comment: Acceptable <115 mg/dl Borderline 115-149 mg/dl Abnormal >149 mg/dl NOTE: Reference Range change effective 03/10/18 Result invalid if not a fasting specimen. Performed By: #### L IPID #### [address] [id number] Progress Noteon 09-07-2019 Orthopedic Rn Authentication Interface Message Text Patient ID: Se Jeffers is a 19 y.o. female. Her chief complaint(s) include: 21+ YEAR WELL CHILD Assessment 1. Routine general medical examination at a health care facility 2. Mild intermittent asthma without complication 3. Abnormal weight gain 4. BMI (body mass index), pediatric, > 99% for age Plan Se was seen today for 21+ year well child. Diagnoses and all orders for this visit: Routine general medical examination at a health care facility - Behavioral/Emotional Assessment w Score - PHQ 9 Mild intermittent asthma without complication - albuterol (VENTOLIN HFA) 108 (90 Base) MCG/ACT inhaler; Inhale 2 Puffs into the lungs every 6 hours as needed for Wheezing Abnormal weight gain - Venipuncture - POCT Glucose - Hemoglobin A1c - Lipid panel - Comprehensive metabolic panel (Clinic Collect) BMI (body mass index), pediatric, > 99% for age Return in about 1 year (around 09/06/2020) for well check. Has had significant weight gain since last well check (up 40 pounds in the past 2 years)- is working on healthier diet and being more active/doing online workouts. Will continue to work on this. Will recheck labs today, including HbA1c, lipids, CMP- has been a few years since last completed and has been off her metformin. Refilled albuterol. Asthma well controlled and has not needed albuterol recently. Discussed asthma treatment plan. Discussed transitioning to adult physician- has appointment set up to establish care with adult practitioner at [facility] later this summer. Will continue to follow with decal maker and derm. Subjective HPI Comments: Has an appt with adult doc later this summer to get established. [place] [employer] [place] studying [place] training. Has 1 more year. Loves college. Finished up this school year with online classes due to [employer]. Still taking topamax for migraines- working well. Hasn't needed albuterol in months/years. Only needs with some illnesses. Has not seen endocrine recently- last peds endo appt was 2 years ago and has not seen adult endo. Has decal maker appt coming up in november, on Rhonda and thinks it is working pretty well. Saw derm last week- no changes. On epiduo and spironolactone for acne, working well. Checked sugar last week- thinks it was normal but doesn't remember exact value. Stopped metformin on her own because she would forget to take it then would feel sick with restarting it. She is unaccompanied. 21+ YEAR WELL CHILD Home: Se has an adult to turn to for help and is permitted and able to make independent decisions. Education: Se is in zoe year of college and is doing well. (Just completed). Eating: Se eats regular meals including fruits and vegetables. (Avoiding red meat and pork. Picky with fruits. Limiting carbs. Trying to eat healthier lately). 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 Drugs: Se uses alcohol (occasional/social). Se does not use tobacco, does not use drugs and does not vape. Safety: Se has a violence free home and has peer relationships free from violence. Sex: The patient has never had a sexual partner. The patient has never had sex. Suicidality: Se has ways to cope with stress and displays self-confidence. Se has no problems with sleep, has no depression, has no anxiety, does not have mood swings, has no suicidal ideation and has no homicidal ideation. PHQ-9 Score: 0 Menstruation Last Menstrual period: LMP from Vitals Patient's last menstrual period was 09/01/2019.. Menstruation: regular periods (on Rhonda. Occasionally still wonky but better than in the past. No severe cramping.) Output Urine and Stool Pattern: Urine and Stool Pattern: Normal stool pattern, normal urine pattern. Sleep Sleeping Difficulty: no difficulty sleeping Teen Anticipatory Guidance The following anticipatory guidance was reviewed during the visit: Nutrition: limit junk food/fast food and soft drinks. Safety: home safety. Social: avoid or limit screen time and bullying. Health: age appropriate dental care, age appropriate sleep habits, contraception/practi ce safe sex/ use condoms, practice abstinence- the safest way to prevent and STDs, talk with trusted adult if feeling sad or nervous and discuss athletic conditioning/ weight training/weight supplements. Screenings Previous Vaccine Reactions: No. Life events information was reviewed-no referral needed (social determinants screen negative) Tuberculosis Concerns: Negative Tuberculosis Screen Concerns: no TB Risk Factors Hearing Vision Concerns: The caregiver has no concerns about the patient's hearing. The caregiver has no concerns about the patient's vision. Hyperlipidemia Concerns: Negative Hyperlipidemia Screen Concerns: no parent or grandparent with [place] angina peripheral or cerebrovascular disease <55 years, no parent or grandparent with sudden cardiac <55 years and no parent with cholesterol >240mg/dl Primary Care Review of Systems Objective Vital Signs 09/07/19 0851 BP: 118/77 Pulse: 76 Weight: (!) 117.6 kg Height: 161.5 cm Body mass index is 45.09 kg/m . Physical Exam Constitutional: She appears well. She is active. No distress. obese HENT: Head: Atraumatic. Ears: Right Ear: Tympanic membrane and external ear normal. Left Ear: Tympanic membrane and external ear normal. Nose: Nose normal. No nasal deformity or nasal discharge. Mouth/Throat: Mucous membranes are moist. Dentition is normal. No pharynx erythema. Oropharynx is clear. Eyes: Conjunctivae and EOM are normal. Pupils are equal, round, and reactive to light. Neck: Normal range of motion. Neck supple. Thyroid normal. No neck rigidity. Cardiovascular: Normal rate, regular rhythm, S1 normal and S2 normal. Pulses are strong. Heart murmur not heard. Pulses: Femoral pulses are 2+ on the right side, and 2+ on the left side Pulmonary/Chest: Effort normal and breath sounds normal. No respiratory distress. She has no wheezes. She has no rhonchi. She has no rales. Exhibits no deformity. Abdominal: Soft. Bowel sounds are normal. She exhibits no distension and no mass. There is no hepatosplenomegaly. There is no abdominal tenderness. Musculoskeletal: No pain, swelling, or limited range of motion at any joint. Back: She exhibits no scoliosis. Neurological: She is alert. She has normal strength. She exhibits normal muscle tone. Gait normal. Skin: Capillary refill takes less than 3 seconds. Skin is warm and not pale. Findings: No rash. Se Jeffers is a 19 y.o. female patient. Behavioral/Emotional Assessment w Score - PHQ 9 Performed by: Amalia Monsivais, DO Authorized by: Amalia Monsivais, DO PHQ-9 See PHQ9 Flowsheet Feeling down, depressed, irritable or hopeless: Not at all Little interest or pleasure in doing things: Not at all Trouble falling or staying sleep, or sleeping too much: Not at all Poor appetite, weight loss, or overeating: Not at all Feeling tired or having little energy: Not at all Feeling bad about yourself - or feeling that you are a failure, or have let yourself or your family down: Not at all Trouble concentrating on things, like school work, reading or watching TV: Not at all Moving or speaking so slowly that other people could have noticed. Or the opposite - being so fidgety or restless that you were moving around a lot more than usual: Not at all Thoughts that you would be better off , or of hurting yourself in some way: Not at all In the past year have you felt depressed or sad most days, even if you felt OK sometimes?: No If you are experiencing any of the problems on this form, how difficult have these problems made it for you to do your work, take care of things at home or get along with other people?: Not difficult at all Has there been a time in the past month when you have had serious thoughts about ending your life?: No Have you ever, in your whole life, tried to kill yourself or made a suicide attempt?: No PHQ-9 Manual Score: 0 PHQ-9 Total Score: 0 Total Score Value: 0-4 No or Minimal Electronically signed by: DO Mitch Garcia [facility] Progress Noteon 09-29-2018 Orthopedic Rn Authentication Interface Message Text Patient ID: Se Jeffers is a 18 y.o. female. Her chief complaint(s) include: Rash (On both legs, sensitive skin face wash to shave legs doesnt seem to help, razor burn has always been a problem.) Assessment 1. Folliculitis Plan Se was seen today for rash. Diagnoses and all orders for this visit: Folliculitis - sulfamethoxazole-tri methoprim (BACTRIM DS) 800-160 MG per tablet; Take 1 Tab (160 mg) by mouth 2 times daily for 10 days Return if symptoms worsen or fail to improve. 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 The duration has been 1 month. The pattern is persistent. The course is unchanging. The rash is located on the thigh(s). The rash is described as red and bumpy. She is unaccompanied. Review of Systems Skin: Positive for rash. Objective Vital Signs 09/29/18 1436 Temp: 36.6 C (97.9 F) TempSrc: Temporal Weight: (!) 107.8 kg There is no height or weight on file to calculate BMI. Physical Exam Constitutional: She appears well. She is active. No distress. HENT: Head: Atraumatic. Mouth/Throat: Mucous membranes are moist. Eyes: Conjunctivae are normal. Cardiovascular: Normal rate and regular rhythm. Heart murmur not heard. Neurological: She is alert. Skin: Rash noted. Upper thighs with scattered red raised bumps Vitals reviewed: Temperature 36.6 C (97.9 F), temperature source Temporal, weight (!) 107.8 kg, last menstrual period 08/30/2018. Normal [facility] Vital Signs Date Time Vital Sign Value Performing Clinician Ezequiel bahena 01-19-2025 09:22-0400 Body height 160.02 cm No Primary Care Physician [facility] 01-19-2025 09:22-0400 Body mass index (BMI) [Ratio] 46.5 kg/m2 No Primary Care Physician [facility] 01-19-2025 09:22-0400 Body temperature 97.6 [degF] No Primary Care Physician [facility] 01-19-2025 09:22-0400 Body weight 119.01 kg No Primary Care Physician [facility] 01-19-2025 09:22-0400 Diastolic blood pressure 74 mm[Hg] No Primary Care Physician [facility] 01-19-2025 09:22-0400 Heart rate 79 /min No Primary Care Physician [facility] 01-19-2025 09:22-0400 Respiratory rate 18 /min No Primary Care Physician [facility] 01-19-2025 09:22-0400 SaO2% (BldA) [Mass fraction] 99 % No Primary Care Physician [facility] 01-19-2025 09:22-0400 Systolic blood pressure 106 mm[Hg] No Primary Care Physician [facility] 01-05-2025 09:35-0400 Body height 160.02 cm No Primary Care Physician [facility] 01-05-2025 09:35-0400 Body mass index (BMI) [Ratio] 46.3 kg/m2 No Primary Care Physician [facility] 01-05-2025 09:35-0400 Body temperature 98.2 [degF] No Primary Care Physician [facility] 01-05-2025 09:35-0400 Body weight 118.55 kg No Primary Care Physician [facility] 01-05-2025 09:35-0400 Diastolic blood pressure 74 mm[Hg] No Primary Care Physician [facility] 01-05-2025 09:35-0400 Heart rate 86 /min No Primary Care Physician [facility] 01-05-2025 09:35-0400 Respiratory rate 18 /min No Primary Care Physician [facility] 01-05-2025 09:35-0400 SaO2% (BldA) [Mass fraction] 98 % No Primary Care Physician [facility] 01-05-2025 09:35-0400 Systolic blood pressure 112 mm[Hg] No Primary Care Physician [facility] 12-22-2024 09:31-0400 Body height 160.02 cm No Primary Care Physician [facility] 12-22-2024 09:31-0400 Body mass index (BMI) [Ratio] 46.7 kg/m2 No Primary Care Physician [facility] 12-22-2024 09:31-0400 Body temperature 98.2 [degF] No Primary Care Physician [facility] 12-22-2024 09:31-0400 Body weight 119.89 kg No Primary Care Physician [facility] 12-22-2024 09:31-0400 Diastolic blood pressure 79 mm[Hg] No Primary Care Physician [facility] 12-22-2024 09:31-0400 Heart rate 74 /min No Primary Care Physician [facility] 12-22-2024 09:31-0400 Respiratory rate 18 /min No Primary Care Physician [facility] 12-22-2024 09:31-0400 SaO2% (BldA) [Mass fraction] 100 % No Primary Care Physician [facility] 12-22-2024 09:31-0400 Systolic blood pressure 124 mm[Hg] No Primary Care Physician [facility] 12-08-2024 08:39-0400 Body height 160.02 cm No Primary Care Physician [facility] 12-08-2024 08:37-0400 Body mass index (BMI) [Ratio] 46.4 kg/m2 No Primary Care Physician [facility] 12-08-2024 08:37-0400 Body temperature 98.2 [degF] No Primary Care Physician [facility] 12-08-2024 08:37-0400 Body weight 118.84 kg No Primary Care Physician [facility] 12-08-2024 08:37-0400 Diastolic blood pressure 78 mm[Hg] No Primary Care Physician [facility] 12-08-2024 08:37-0400 Heart rate 98 /min No Primary Care Physician [facility] 12-08-2024 08:37-0400 Respiratory rate 18 /min No Primary Care Physician [facility] 12-08-2024 08:37-0400 SaO2% (BldA) [Mass fraction] 98 % No Primary Care Physician [facility] 12-08-2024 08:37-0400 Systolic blood pressure 109 mm[Hg] No Primary Care Physician [facility] 12-02-2024 10:11-0400 Body height 160.02 cm No Primary Care Physician [facility] 12-02-2024 10:11-0400 Body mass index (BMI) [Ratio] 46.2 kg/m2 No Primary Care Physician [facility] 12-02-2024 10:11-0400 Body temperature 98.3 [degF] No Primary Care Physician [facility] 12-02-2024 10:11-0400 Body weight 118.38 kg No Primary Care Physician [facility] 12-02-2024 10:11-0400 Diastolic blood pressure 80 mm[Hg] No Primary Care Physician [facility] 12-02-2024 10:11-0400 Heart rate 80 /min No Primary Care Physician [facility] 12-02-2024 10:11-0400 Respiratory rate 18 /min No Primary Care Physician [facility] 12-02-2024 10:11-0400 SaO2% (BldA) [Mass fraction] 97 % No Primary Care Physician [facility] 12-02-2024 10:11-0400 Systolic blood pressure 112 mm[Hg] No Primary Care Physician [facility] 04-04-2023 09:57-0500 Body height 160.02 cm HUSSAIN Marroquin Work Phone: [facility] 04-04-2023 09:56-0500 Body mass index (BMI) [Ratio] 50.5 kg/m2 CN Heydi Marroquin Work Phone: [facility] 04-04-2023 09:56-0500 Body weight 129.5 kg CN Heydi Marroquin Work Phone: [facility] 04-04-2023 09:56-0500 Diastolic blood pressure 64 mm[Hg] CNM Heydi Marroquin Work Phone: [facility] 04-04-2023 09:56-0500 Systolic blood pressure 134 mm[Hg] CNM Heydi Marroquin Work Phone: [facility] 04-03-2022 10:06-0500 Body height 160.02 cm CN Heydi Marroquin Work Phone: [facility] Work Phone: 04-03-2022 10:02-0500 Body mass index (BMI) [Ratio] 48.5 kg/m2 CN Heydi Marroquin Work Phone: [facility] Work Phone: 04-03-2022 10:02-0500 Body weight 124.28 kg CN Heydi Marroquin Work Phone: [facility] Work Phone: 04-03-2022 10:02-0500 Diastolic blood pressure 88 mm[Hg] CN Heydi Marroquin Work Phone: [facility] Work Phone: 04-03-2022 10:02-0500 Systolic blood pressure 124 mm[Hg] CNM Heydi Marroquin Work Phone: [facility] Work Phone: 04-03-2021 12:16-0500 Body height 160.02 cm LOAN SERVICES PROFESSIONAL-C Fe Youssef LOAN SERVICES PROFESSIONAL Work Phone: [facility] Work Phone: 04-03-2021 12:16-0500 Body mass index (BMI) [Ratio] 48.1 kg/m2 LOAN SERVICES PROFESSIONAL-C Fe Woodland LOAN SERVICES PROFESSIONAL Work Phone: [facility] Work Phone: 04-03-2021 12:16-0500 Body weight 123.15 kg LOAN SERVICES PROFESSIONAL-C Fe Lis LOAN SERVICES PROFESSIONAL Work Phone: [facility] Work Phone: 04-03-2021 12:16-0500 Diastolic blood pressure 72 mm[Hg] LOAN SERVICES PROFESSIONAL-C Fe Lis LOAN SERVICES PROFESSIONAL Work Phone: [facility] Work Phone: 04-03-2021 12:16-0500 Systolic blood pressure 110 mm[Hg] LOAN SERVICES PROFESSIONAL-C Fe Lis LOAN SERVICES PROFESSIONAL Work Phone: [facility] Work Phone: Encounters Encounter Date Encounter Type Care Provider Facility Start: 02-16-2025 End: 02-16-2025 ambulatory No [place] [place]: 02-02-2025 End: 02-02-2025 ambulatory Candice Aguirre [place] [place] Start: 01-19-2025 End: 01-19-2025 Patient encounter procedure Christy Horton NP-C -[facility] Work Phone: Start: 01-19-2025 End: 01-19-2025 ambulatory No Primary Care Physician -[facility] Start: 01-19-[address] Guy Aguirre MD -[facility] Start: 01-05-2025 End: 01-05-[address] Candice Aguirre MD -[facility] Work Phone: Start: 01-05-2025 End: 01-05-2025 ambulatory No Primary Care Physician -[facility] Start: 01-05-[address] Guy Aguirre MD -[facility] Start: 12-22-2024 End: 12-22-2024 Patient encounter procedure Christy Horton LOAN SERVICES PROFESSIONAL-C -[facility] Work Phone: Start: 12-22-2024 End: 12-22-2024 ambulatory No Primary Care Physician -[facility] Start: 12-22-[address] Guy Aguirre MD -[facility] Start: 12-08-[address] Guy Aguirre MD -[facility] Start: 12-08-2024 End: 12-08-2024 Patient encounter procedure Christy Clifford GOODWIN-Tracey -[facility] Work Phone: Start: 12-08-2024 End: 12-08-2024 ambulatory No Primary Care Physician -[facility] Start: 12-02-[address] Guy Aguirre MD -[facility] Start: 12-02-2024 End: 12-02-[address] Candice Aguirre MD -[facility] Work Phone: Start: 12-02-2024 End: 12-02-2024 ambulatory No Primary Care Physician -[facility] Start: 03-29-2024 End: 03-29-2024 ambulatory No Primary Care Physician [place] [place] Start: 04-04-2023 End: 04-04-2023 ambulatory CNM Heydi Marroquin Work Phone: [facility] Work Phone: Start: 04-04-2023 End: 04-04-2023 Patient encounter procedure CNM Heydi Marroquin Work Phone: [facility] Work Phone: Start: 04-04-2023 End: 04-04-2023 Patient encounter procedure CNM Heydi Marroquin Work Phone: [facility] Work Phone: Start: 04-03-2022 End: 04-03-2022 ambulatory CNM Heydi Marroquin Work Phone: [facility] Work Phone: Start: 04-03-2022 End: 04-03-2022 Patient encounter procedure CNM Heydi Marroquin Work Phone: [facility] Start: 04-03-2021 End: 04-03-2021 Patient encounter procedure SYDNEY Youssef NP Work Phone: [facility] Procedures Date Procedure Procedure Detail Performing Clinician Start: 01-19-2025 Estimated creatinine clearance No Primary Care Physician Start: 01-05-2025 Estimated creatinine clearance No Primary Care Physician Start: 12-22-2024 Urnls dip stick/tabl et reagent auto microscopy No Primary Care Physician Start: 12-22-2024 Estimated creatinine clearance No Primary Care Physician Start: 12-02-2024 Reactive lymphocyte count No Primary Care Physician Start: 12-02-2024 Serum inorganic phos phate measurement No Primary Care Physician Plan of Treatment Date Care Activity Detail Author Start: 01-19-2025 Medication administr ation assessment [facility] Start: 01-19-2025 Vital signs measurements [facility] Start: 01-05-2025 Medication administr ation assessment [facility] Start: 01-05-2025 Vital signs measurements [facility] Start: 12-22-2024 [facility] Start: 12-22-2024 Medication administr ation assessment [facility] Start: 12-22-2024 Vital signs measurements [facility] Start: 12-08-2024 Venous catheter care management [facility] Start: 12-08-2024 Medication administr ation assessment [facility] Start: 12-08-2024 Vital signs measurements [facility] Start: 12-08-2024 [facility] Start: 04-04-2023 Liquid based cervica l cytology screening [facility] Alanine aminotransfe rase [Enzymatic activity/volume] in Serum or Plasma [facility] Alanine aminotransfe rase [Enzymatic activity/volume] in Serum or Plasma [facility] Albumin [Mass/volume ] in Serum or Plasma [facility] Albumin [Mass/volume ] in Serum or Plasma [facility] Alkaline phosphatase [Enzymatic activity/volume] in Serum or Plasma [facility] Alkaline phosphatase [Enzymatic activity/volume] in Serum or Plasma [facility] Anion gap in Serum or Plasma [facility] Anion gap in Serum or Plasma [facility] Bilirubin, total measurement [facility] Bilirubin, total measurement [facility] BUN/Creatinine ratio [facility] BUN/Creatinine ratio [facility] Calcium [Mass/volume ] in Serum or Plasma [facility] Calcium [Mass/volume ] in Serum or Plasma [facility] Carbon dioxide, tota l [Moles/volume] in Central venous blood [facility] Carbon dioxide, tota l [Moles/volume] in Central venous blood [facility] CBC W Auto Different ial panel - Blood [facility] Comprehensive metabo lic 2000 panel - Serum or Plasma [facility] Creatinine [Mass/vol ume] in Serum or Plasma [facility] Creatinine [Mass/vol ume] in Serum or Plasma [facility] Erythrocyte mean cor puscular volume determination [facility] Erythrocyte mean cor puscular volume determination [facility] Glucose [Mass/volume ] in Serum or Plasma [facility] Glucose [Mass/volume ] in Serum or Plasma [facility] Hematocrit [Volume F raction] of Blood [facility] Hematocrit [Volume F raction] of Blood [facility] Hemoglobin [Mass/volume] in Blood [facility] Hemoglobin [Mass/volume] in Blood [facility] Leukocytes [#/volume] in Blood [facility] Leukocytes [#/volume] in Blood [facility] Magnesium measurement [facility] Mean corpuscular hem oglobin concentration determination [facility] Mean corpuscular hem oglobin concentration determination [facility] Mean corpuscular hem oglobin determination [facility] Mean corpuscular hem oglobin determination [facility] Measurement of renal function [facility] Measurement of renal function [facility] Neutrophil count [facility] Neutrophil count [facility] Neutrophil percent d ifferential count [facility] Neutrophil percent d ifferential count [facility] Platelets [#/volume] in Blood [facility] Platelets [#/volume] in Blood [facility] Potassium measurement [facility] Potassium measurement [facility] Red blood cell count [facility] Red blood cell count [facility] Red cell distributio n width determination [facility] Red cell distributio n width determination [facility] Serum chloride measurement [facility] Serum chloride measurement [facility] Serum inorganic phos phate measurement [facility] Sodium measurement [facility] Sodium measurement [facility] T4 free measurement [facility] Work Phone: Thyroid stimulating hormone measurement [facility] Work Phone: Total protein measurement [facility] Total protein measurement [facility] Urea nitrogen [Mass/ volume] in Serum or Plasma [facility] Urea nitrogen [Mass/ volume] in Serum or Plasma [facility] Payers Date Payer Category Payer Self-pay [id number] 2024 Private Health Insurance [id number] Private Health Insurance [facility] [id number] Unknown [facility] [id number] Unknown [id number] 62 Unknown [id number] 62 Unknown [id number] 62 Unknown [id number] 62 Unknown [id number] 62 Unknown [id number] 62 Unknown [id number] 62 Unknown [id number] 62 Unknown [id number] 62 Social History Date Type Detail Facility Start: 04-03-2021 End: 04-04-2023 Tobacco smoking status NDIS Unknown if ever smoked [facility] Start: 2000 Sex Assigned At Female [facility] Start: 12-02-2024 Tobacco smoking stat us NHIS Never smoked tobacco (finding) [facility] Sex Female [facility] Clinical Notes 12-14-2020 to 01-19-2025 Note Date & Type Note Facility 01-19-2025 Progress note [facility] 01-05-2025 Progress note [facility] 12-02-2024 Evaluation note Diagnosis Onset Date Resolution Hodgkin lymphoma acute November 062024 9:49am Encounter for chemotherapy management acute Septembe r 2024 8:24am Hodgkin lymphoma acute Septembe r 2024 8:24am [facility] Work Phone: 1(834) 983-879708-28-2025 Evaluation note* Diagnosis Onset Date Resolution Status Admit Date Hodgkin lymphoma acute November 062024 9:49am Encounter for chemotherapy management acute December 08 8:24am Hodgkin lymphoma acute Septembe r 2024 8:24am Encounter for chemotherapy management acute December 22, 2024 8:16am Hodgkin lymphoma acute Septembe r 2024 8:16am [facility] [facility] Work Phone: 1(294) 517-481308-28-2025 Evaluation note* Diagnosis Onset Date Resolution Status Admit Date Hodgkin lymphoma acute November 062024 9:49am Encounter for chemotherapy management acute December 08 8:24am Hodgkin lymphoma acute Septembe r 2024 8:24am Encounter for chemotherapy management acute December 22, 2024 8:16am Hodgkin lymphoma acute Septembe r 2024 8:16am Hodgkin lymphoma acute January 05, 2025 8:47am [facility] Work Phone: 1(626) 284-884908-28-2025 Evaluation note* Diagnosis Onset Date Resolution Status Admit Date Hodgkin lymphoma acute November 062024 9:49am Encounter for chemotherapy management acute December 08 8:24am Hodgkin lymphoma acute Septembe r 2024 8:24am Encounter for chemotherapy management acute December 22, 2024 8:16am Hodgkin lymphoma acute Septembe r 2024 8:16am Hodgkin lymphoma acute January 05, 2025 8:47am Encounter for chemotherapy management acute January 19 8:47am Hodgkin lymphoma acute January 19, 2025 8:47am [facility] Work Phone: 1(165) 739-470712-29-2023 NotePap Smear Specimen AdequacyDeceer 2022 11:58amComment.Satisfactory for evaluation. Endocervical and/or squamous metaplasticcells (endocervical component)are present.[facility] INTERFACED A#[id number] Hardin Memorial HospitalComment on above:Satisfactory for evaluation. Endocervical and/or squamous metaplasticcells (endocervical component)are present.12-14-2020 NotePatient Outreach (NETNAV) SE JEFFERS ([id number]) 2000 F Date Time Provider Department 12/14/20 NEETU GARCIA During your visit today, we recorded the following information about you: Neetu Garcia Population Health Navigator 12/14/2020 8:42 AM Signed POPULATION HEALTH NAVIGATION OUTREACH Action/FYI I spoke with mom patient is at [facility] No care everywhwere Contact made with patient or family member? YES Pt identified by name and : YES Outreach Outcome/Action Spoke to patient or caregiver: PCP confirmed / updated Reason for Outreach Attribution: Provider Off-boarding Payer: Payor: [facility] / Plan: [facility] [employer] / Product Type: HMO / [...] future healthcare decisions with a power of criminal defense attorney, living will, or advance directives? No. Please bring a copy to your next appointment or email to [email or web address] Referrals: N/A Message Sent to Practice: NO Navigation Signature: Neetubailee Garcia Population Health Navigator December 14, 2020 8:41 [...] Breath. Use over 5-15minutes. - Drospirenone-Ethinyl Estradiol (RHONDA, 28,) 3-0.02 mg per tablet Take 1 [...] obesity*10/11/2019 Encounter Status:Closed by RADHA POPULATION HEALTH NAVIGATORNEETU on 12/14/20[facility]09-09-2021 NoteHNO ID: [id number] Author: Neeut Garcia Population Health Navigminerva Service: ? Author Type: ? Type: Progress Notes Filed: 12/14/2020 8:42 AM Note Text: POPULATION HEALTH NAVIGATION OUTREACH Action/FYI I spoke with mom patient is at [facility] in [place] No care everywhwere Contact made with patient or family member? YES Pt identified by name and : YES Outreach Outcome/Action Spoke to patient or caregiver: PCP confirmed / updated Reason for Outreach Attribution: Provider Off-boarding Payer: Payor: [facility] / Plan: [facility] / Product Type: HMO / [...] future healthcare decisions with a power of criminal defense attorney, living will, or advance directives? No. Please bring a copy to your next appointment or email to Referrals: N/A Message Sent to Practice: NO Navigation Signature: Neetubailee Garcia Population Health Navigator December 14, 2020 8:41 [facility] Diagnosis Onset Date Resolution Status Hirsutism acute Obesity acute PCOS (polycystic ovarian syndrome) acute [facility] Work Phone: Evaluation note* Diagnosis Onset Date Resolution Status Hirsutism acute Obesity acute Encounter for routine gynecological examination noneactive [facility] Work Phone: Evaluation note* Diagnosis Onset Date Resolution Status Hirsutism acute Obesity acute PCOS (polycystic ovarian syndrome) acute Encounter for routine gynecological examination noneactive [facility] Work Phone: Evaluation noteNo assessment information available [facility] Work Phone: Progress note Author Candice Aguirre [facility] Note Date/Time January 05, 2025 9: 55am [facility] [address] [place] [id number] OFFICE VISIT Date of Service: 01/05/25 0930 MR#: [id number] Acct: [id number] Name: SE JEFFERS Rep #: [id number] : 2000 From: Candice dyson MD Age/Sex: 24/F [place] [facility] [place]: Signed HPI Subjective Date of Service 01/05/25 Chief Complaint Hodgkin's lymphoma History of Present Illness 24-year-old female while residing in [place] presented with painless enlargementof right neck lymph nodes. There were no B symptoms. September 02, 2024 CT soft tissue of the neck with contrast: Adenopathy at the thoracic inlet, right juxta clavicular region, right axilla and the visualized superior mediastinum. The largest lymph node mass was in the left para-aortic space measuring 7.7 cm in maximum diameter. September 16, 2024 PET/CT initial staging: Multiple prominent FDG avid right more than left lower cervical, supraclavicular and mediastinal lymph nodes, no FDG avid lymphadenopathy below the diaphragm, no abnormal FDG uptake in the spleen, heterogeneous FDG uptake in the axial marrow nonspecific. Deauville 5. September 24, 2024 right cervical lymph node core needle biopsy: Classical Hodgkin's lymphoma. September 30, 2024 pretreatment ESR not elevated at 13. Initial workup was in [place], patient was clinical stage IIA favorable/unfavorable risk group because of involvement of more than 3 lymph node areas. She received 2 cycles of ABVD (day 1 and 15) November 26, 2024 PET/CT restaging following 2 cycles of ABVD: Significant interval decreased in the extent of FDG avid malignant disease developed down to3. [facility] Medical History Encounter for chemotherapy management Acne Asthma Dyslipidemia Prediabetes Migraine headache Other specified complication of vascular prosthetic devices, implants and grafts, initial encounter Hodgkin lymphoma Anxiety and depression pre diabetic history of anxiety and depression Surgical History H/O lymph node biopsy H/O wisdom tooth extraction History of right knee surgery History of tonsillectomy Family History Grandfather Diabetes Grandmother Cancer Lung, smoker. 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 Smoking Status: Never smoker alcohol intake: never substance use type: does not use caffeine: Yes what type of physical activity do you participate in: walking seatbelt use: always do you feel safe at home: Yes ROS Constitutional Constitutional: Denies fatigue, fever(s) or weight loss Eyes Eyes: Reports systems reviewed and no addt'l complaints, except as documented ENT HEENT: Reports systems reviewed and no addt'l complaints, except as documented; Denies mouth lesions Cardiovascular Cardiovascular: Reports systems reviewed and no addt'l complaints, except as documented; Denies chest pain with activity or edema Respiratory/Chest Respiratory/Chest: Reports systems reviewed and no addt'l complaints, except as documented and other Details: Has mild asthma uses a rescue inhaler infrequently; Denies cough or dyspnea Gastrointestinal Gastrointestinal: Reports systems reviewed and no addt'l complaints, except as documented; Denies change in bowel habits, nausea or vomiting Genitourinary Genitourinary: Reports systems reviewed and no addt'l complaints, except as documented Musculoskeletal Musculoskeletal: Reports systems reviewed and no addt'l complaints, except as documented; Denies back pain Integumentary Integumentary: Reports systems reviewed and no addt'l complaints, except as documented; Denies new lesions Neurologic Neurologic: Reports systems reviewed and no addt'l complaints, except as documented; Denies focal weakness or paresthesias Psychiatric Psychiatric: Reports systems reviewed and no addt'l complaints, except as documented, anxiety, panic attacks and other Details: Patient and her mother confirmed that she is quite anxious around treatment and experienced some panic attacks. Endocrine Endocrinology: Reports systems reviewed and no addt'l complaints, except as documented Hematologic/Lymphatic Hematologic/Lymphatic: Reports systems reviewed and no addt'l complaints, exceptas documented and other Details: Can no longer feel the enlarged lymph nodes in the neck but generally avoids touching the area ; Denies lymphadenopathy Intake Vital Signs 12/08/24 08:39 12/22/24 09:31 01/05/25 09:31 01/05/25 09:35 Height 5 ft 3 in 5 ft 3 in 5 ft 3 in 5 ft 3 in Weight: 119.89 kg 118.558 kg BMI 46.7 46.3 BP 124/79 H 112/74 Blood Pressure Location Lt brachial Lt brachial Position Sitting Sitting Respiration 18 18 Pulse 74 86 Pulse Source Monitor Monitor Temp 98.2 F 98.2 F Temperature Source Temporal Artery Temporal Artery Pulse Oximetry (%) 100 98 Oxygen Delivery Method room air room air Intake Is patient in pain?: No Allergies ibuprofen Allergy (Verified 01/05/25 09:34) Nausea Penicillins (PCN) Allergy (Verified 01/05/25 09:34) Rash Medications ?Medication ?Instructions ?Recorded ?Confirmed ?Type loratadine 10 mg capsule 10 mg PO DAILY 04/03/2112/06 History spironolactone 100 mg tablet 200 mg (2 x 100 mg) PO QD AY #60 12/25/23 12/22/24 Rx tabs etonogestrel 0.12 mg-ethinyl 1 vag ring vaginal ONCE 3 weeks #3 03/29/24 12/22/24 Rx estradiol 0.015 mg/24 hr vaginal ea ring (NuvaRing) alprazolam 0.25 mg tablet (Xanax) 0.25 mg PO QDAY PRN 11/17/24 12/22/24 History ondansetron 4 mg disintegrating 4 mg PO Q8H PRN 12/22/24 History tablet topiramate 100 mg tablet 100 mg PO QDAY 11/17/2412/06 History lidocaine-prilocaine 2.5 %-2.5 % 1 applic topical ONCE PRN port 12/02/24 12/22/24 Rx topical cream access 30 days #30 grams albuterol sulfate 90 mcg/actuation 2 puff inhalation Q 6H PRN 12/22/24 12/22/24 History aerosol inhaler (Ventolin HFA) MAGIC MOUTH WASH (BMX) 180 mL 15 ml PO .Q6HR #180 mL 0 12/27/24 Rx suspension omeprazole 20 mg capsule,delayed 20 mg PO QDAY 5 01/05/25 History release Have you fallen in the past year?: No Central Venous Access Central Venous Access: Yes Port/PICC: Port CBC, reviewed in EMR CMP pending January 05, 2025 Exam Physical Exam Narrative ECOG 0 Const alert, oriented x3 and no apparent distress General Appearance: cooperative, comfortable and anxious Nutritional Appearance: obese HEENT Face and Sinus: normal facial exam Eyes General Eye: normal appearance of both eyes Neck no lymphadenopathy and no JVD Chest Chest: vascular access Resp clear to auscultation bilaterally Cardio regular rate and regular rhythm Jugular Venous Distention: Negative for JVD GI soft to palpation, non-tender and non-distended Back/Spine no thoracic nor lumbar tenderness Extremity no clubbing, cyanosis or edema Skin no rashes or lesions noted Neuro oriented x3, CN's II-XII intact bilaterally, moves all extremities and no focal motor deficits Coordination / Balance: [id number] test normal Speech: speech normal Gait (Neuro): normal gait Psych mental status grossly normal Coding Level of Care Code Off vis,est,level 4 Exam Problem Focused Diagnoses Hodgkin lymphoma of lymph nodes of multiple regions, unspecified Hodgkin lymphoma type C81.98 Hodgkin lymphoma type: unspecified type Lymphoma site: multiple regions Assessment and Plan Assessment and Plan (1) Hodgkin lymphoma: Status: Acute Qualifiers: Hodgkin lymphoma type: unspecified type Lymphoma site: multiple regions Qualified Code(s): C81.98 - Hodgkin lymphoma, unspecified, lymph nodes of multiple sites Plan 24-year-old female with classic Hodgkin's lymphoma stage IIA, favorable/unfavorable disease (involving more than 3 lymph node areas), nonbulky(maximum lymph node mass diameter 7 cm) with normal ESR at presentation. The patient started systemic chemotherapy with ABVD in [place] received 2 cyclesshowing a favorable response to treatment with Deauville PET score 5 going down to 2 cycles of treatment. Then she moved to [place] and continued with therapy. Treatment is tolerated with no grade 3 or 4 toxicities. She is experiencing reversible acute grade 1 neuropathy in her extremities. Chronic comorbid conditions: Asthma, obesity, dyslipidemia, polycystic ovary syndrome, prediabetes. Recommendations: Based on NCCN guidelines: 1. Continue with 4 more cycles of AVD dropping bleomycin to minimize lung toxicity. Do not favor use of growth factor or treatment delays due to cytopenias unless the patient is hospitalized with a serious infection. 2. Continue supportive treatments with antiemetics. 3. Restaging with PET/CT after completion of treatment. Patient was seen with her mother, impression and plan discussed. Candice Aguirre MD Comp[employer] Molding Machine Setter, [facility] Divisions of Medical Oncology & Hematology Department of Internal Medicine [place] [phone] This note was generated using a voice recognition system software. Although itwas reviewed by the author prior to finalization, it may still contain incorrectwords, spelling, and punctuation that were not noted when reviewing prior to saving. If a clinically significant typo or inaccurately typed phrase is noted, please notify the author. Clinical Quality Measures Falls Risk Screening/Assistive Devices Have you fallen in the past year?: No 01/05/25 0955 <Electronically signed by Candice naqvi MD> Date _ Candice Aguirre MD Cosigner Signature: Date (if applicable) CC: ~ [facility] Work Phone: Progress note Author Christy Horton [facility] Note Date/Time January 19, 2025 9 :58am [facility] [address] [place] [address] OFFICE VISIT Date of Service: 01/19/25 0920 MR#: [id number] Acct: [id number] Name: SE JEFFERS Rep #: [id number] : 2000 From: Christy Ramsay [employer] PROFESSIONAL [employer]AN SERVICES PROFESSIONAL-C Age/Sex: 24/F [place] [facility] Status: Signed HPI Subjective Date of Service 01/19/25 Chief Complaint Hodgkin's lymphoma History of Present Illness 24-year-old female while residing in [place] presented with painless enlargementof right neck lymph nodes. There were no B symptoms. September 02, 2024 CT soft tissue of the neck with contrast: Adenopathy at the thoracic inlet, right juxta clavicular region, right axilla and the visualized superior mediastinum. The largest lymph node mass was in the left para-aortic space measuring 7.7 cm in maximum diameter. September 16, 2024 PET/CT initial staging: Multiple prominent FDG avid right more than left lower cervical, supraclavicular and mediastinal lymph nodes, no FDG avid lymphadenopathy below the diaphragm, no abnormal FDG uptake in the spleen, heterogeneous FDG uptake in the axial marrow nonspecific. Deauville 5. September 24, 2024 right cervical lymph node core needle biopsy: Classical Hodgkin's lymphoma. September 30, 2024 pretreatment ESR not elevated at 13. Initial workup was in [place], patient was clinical stage IIA favorable/unfavorable risk group because of involvement of more than 3 lymph node areas. She received 2 cycles of ABVD (day 1 and 15) November 26, 2024 PET/CT restaging following 2 cycles of ABVD: Significant interval decreased in the extent of FDG avid malignant disease developed down to3. Interval History The patient is presenting to clinic today accompanied by mother, for an evaluation anticipating she will begin c4 d15 AVD. Reports pimple-like rash on face and upper back begins on day 4 & 5. She stoppedusing tretinoin washes. Only using gentle cleanser. + nausea, grade 1. No emesis. Antiemetics effective. Requests Zofran. Constipation improved. taking docusate sodium and senna 8.6 mg daily. Now resolved. LBM earlier this morning. reflux improved. Taking Prilosec daily. also days 2-4. Reports 58 oz of PO fluid intake per day. Reports intermittent numbness/tingling fingertips and toes, and bottom of left foot. Denies fever/chills, sweats, dizziness, CP, palpitations, cough, SOB, abd pain, dysuria, hematuria, swelling of her extremities, any episodes of bleeding/bruising. [facility] Medical History Encounter for chemotherapy management Acne Asthma Dyslipidemia Prediabetes Migraine headache Other specified complication of vascular prosthetic devices, implants and grafts, initial encounter Hodgkin lymphoma Anxiety and depression pre diabetic history of anxiety and depression Surgical History H/O lymph node biopsy H/O wisdom tooth extraction History of right knee surgery History of tonsillectomy Family History Grandfather Diabetes Grandmother Cancer Lung, smoker. 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 Smoking Status: Never smoker alcohol intake: never substance use type: does not use caffeine: Yes what type of physical activity do you participate in: walking seatbelt use: always do you feel safe at home: Yes ROS ROS Narrative Negative except as documented in the interval HPI Intake Vital Signs 12/08/24 08:39 01/05/25 09:35 01/19/25 09:22 Height 5 ft 3 in 5 ft 3 in 5 ft 3 in Weight: 261 lb 6 oz 262 lb 6 oz BMI 46.3 46.5 BP 112/74 106/74 Blood Pressure Location Lt brachial Lt brachial Position Sitting Sitting Respiration 18 18 Pulse 86 79 Pulse Source Monitor Monitor Temp 98.2 F 97.6 F L Temperature Source Temporal Artery Temporal Artery Pulse Oximetry (%) 98 99 Oxygen Delivery Method room air room air Intake Accompanied by: Self Is patient in pain?: No Allergies ibuprofen Allergy (Verified 01/19/25 09:25) Nausea Penicillins (PCN) Allergy (Verified 01/19/25 09:25) Rash Medications ?Medication ?Instructions ?Recorded ?Confirmed ?Type loratadine 10 mg capsule 10 mg PO DAILY 04/03/2101/05 History spironolactone 100 mg tablet 200 mg (2 x 100 mg) PO QD AY #60 12/25/23 01/19/25 Rx tabs etonogestrel 0.12 mg-ethinyl 1 vag ring vaginal ONCE 3 weeks #3 03/29/24 01/19/25 Rx estradiol 0.015 mg/24 hr vaginal ea ring (NuvaRing) alprazolam 0.25 mg tablet (Xanax) 0.25 mg PO QDAY PRN 11/17/24 01/19/25 History topiramate 100 mg tablet 100 mg PO QDAY 11/17/2401/05 History lidocaine-prilocaine 2.5 %-2.5 % 1 applic topical ONCE PRN port 12/02/24 01/19/25 Rx topical cream access 30 days #30 grams albuterol sulfate 90 mcg/actuation 2 puff inhalation Q 6H PRN 12/22/24 01/19/25 History aerosol inhaler (Ventolin HFA) MAGIC MOUTH WASH (BMX) 180 mL 15 ml PO .Q6HR #180 mL 0 12/27/24 01/19/25 Rx suspension omeprazole 20 mg capsule,delayed 20 mg PO QDAY 5 01/19/25 History release ondansetron 8 mg disintegrating 8 mg PO Q8H PRN nausea and 01/19/25 01/19/25 Rx tablet vomiting #30 tabs Central Venous Access Central Venous Access: Yes Port/PICC: Port Laboratory Tests 12/22/24 01/19/25 09:10 09:03 WBC 2.0 L Hgb 13.3 Hct 38.2 Plt Count 284 Absolute Neuts (auto) 0.5 L Sodium 138 141 Potassium 3.7 4.7 Chloride 106 108 Carbon Dioxide 20.6 L 21.2 BUN 13 15 Creatinine 0.86 0.86 Glucose 85 100 H Calcium 9.0 9.2 Total Bilirubin 0.26 0.26 AST 25 27 ALT 25 20 Alkaline Phosphatase 93 95 Albumin 4.0 3.9 Exam Physical Exam Narrative ECOG 0 Const alert, oriented x3 and no apparent distress General Appearance: comfortable and anxious Nutritional Appearance: obese HEENT Face and Sinus: normal facial exam Eyes General Eye: normal appearance of both eyes Neck no lymphadenopathy and no JVD Chest Chest: vascular access Resp clear to auscultation bilaterally Cardio regular rate and regular rhythm Jugular Venous Distention: Negative for JVD GI soft to palpation, non-tender and non-distended Back/Spine no thoracic nor lumbar tenderness Extremity no clubbing, cyanosis or edema Skin no rashes or lesions noted Neuro oriented x3, CN's II-XII intact bilaterally, moves all extremities and no focal motor deficits Speech: speech normal Gait (Neuro): normal gait Psych mental status grossly normal Coding Level of Care Code Off vis,est,level 4 Exam Problem Focused Diagnoses Hodgkin lymphoma of lymph nodes of multiple regions, unspecified Hodgkin lymphoma type C81.98 Hodgkin lymphoma type: unspecified type Lymphoma site: multiple regions Encounter for chemotherapy management Z51.11 Assessment and Plan Assessment and Plan (1) Hodgkin lymphoma: Status: Acute Qualifiers: Hodgkin lymphoma type: unspecified type Lymphoma site: multiple regions Qualified Code(s): C81.98 - Hodgkin lymphoma, unspecified, lymph nodes of multiple sites (2) Encounter for chemotherapy management: Status: Acute Medications: New ondansetron 8 mg PO Q8H PRN 30 tabs 2RF nausea and vomiting C81.98 - Hodgkin lymphoma, unspecified, lymph nodes of multiple sites, R11.2 - Nausea with vomiting, unspecified, T45.1X5A - Adverse effect of antineoplastic and immunosuppressive drugs, initial encounter Discontinued ondansetron Discontinued Reason: Pt no longer taking 4 mg PO Q8H PRN Plan 24-year-old female with classic Hodgkin's lymphoma stage IIA, favorable/unfavorable disease (involving more than 3 lymph node areas), nonbulky(maximum lymph node mass diameter 7 cm) with normal ESR at presentation. The patient started systemic chemotherapy with ABVD in [place] received 2 cyclesshowing a favorable response to treatment with Deauville PET score 5 going down to 2 cycles of treatment. Then she moved to [place] and continued with therapy. Treatment is tolerated with no grade 3 or 4 toxicities. She is experiencing reversible acute grade 1 neuropathy in her extremities. Chronic comorbid conditions: Asthma, obesity, dyslipidemia, polycystic ovary syndrome, prediabetes. Recommendations: Based on NCCN guidelines: 1. Continue with 4 more cycles of AVD dropping bleomycin to minimize lung toxicity. Do not favor use of growth factor or treatment delays due to cytopenias unless the patient is hospitalized with a serious infection. Proceed with cycle 4-day 15 AVD today. Neutropenic precautions reviewed. 2. Continue supportive treatments with antiemetics. Zofran refilled. 3. Restaging with PET/CT after completion of treatment. 01/19/25 0958 <Electronically signed by Christy gary NP, NP-C> Date _ Christy Horton NP, NP-C Cosigner Signature: Date (if applicable) CC: ~ [facility] Work Phone: Reason for referral (narrative)No reason for referral information availableStockton [facility] Hospital Work Phone: Summary Purpose Family History No Family History Records Found Relationship Condition Age at Onset Recorded Date/T rahul grandfather Diabetes mellitus Unknown Relationship Condition Age at Onset Recorded Date/T rahul grandfather Diabetes mellitus Unknown grandmother Malignant neoplasm Unknown Hyperlipidemia Unknown unrelated friend Malignant neoplasm of breast Unknown Advance Directives No Advanced Directives Records Found Advance Directive Response Recorded Date/ Time Living Will No December 02 6 9:21pm Power of Anesthesiologist/Physician No December 02 016 9:21pm Advance Directive Response Recorded Date/ Time Living Will No December 02 6 8:21pm Power of Anesthesiologist/Physician No December 02 2 016 8:21pm Advance Directive Response Recorded Date/ Time Living Will No February 19 023 4:06pm Power of Anesthesiologist/Physician No February 19, 2023 4:06pm Advance Directive Response Recorded Date/ Time Living Will No December 08 025 10:03am Do you have a Healthcare Power of Anesthesiologist/Physician? No December 08, 2024 10:03am Advance Directives No December 10:03am Advance Directive Response Recorded Date/ Time Living Will No January 05 10:25am Do you have a Healthcare Power of Anesthesiologist/Physician? No January 05, 2025 10:25am Advance Directives No January 05, 2025 10:25am Advance Directive Response Recorded Date/ Time Living Will No January 19 10:34am Do you have a Healthcare Power of Anesthesiologist/Physician? No January 19, 2025 10:34am Advance Directives No January 19, 2025 10:34am Chief Complaint and Reason for Visit Chief Complaint Annual (MANAGER SPA) Reason for Visit Hirsutism Obesity PCOS (polycystic ovarian syndrome) Chief Complaint Annual (MANAGER SPA) Reason for Visit Hirsutism Obesity Encounter for routine gynecological examination Chief Complaint Annual (MANAGER SPA) INT LABS Reason for Visit Hirsutism Obesity PCOS (polycystic ovarian syndrome) Encounter for routine gynecological examination Chief Complaint Admit Date HL December 02, 2024 9: 49am Chief Complaint Admit Date HL December 02, 2024 9: 49am NEW START - NO LABS - AVD December 08, 2024 8:24am NEW START - NO LABS - AVD December 08, 2024 9:00am Reason for Visit Admit Date Hodgkin lymphoma December 02, 2024 9: 49am Encounter for chemotherapy management Se [email or web address] 8:24am Hodgkin lymphoma December 08, 2024 8:24am Chief Complaint Admit Date HL December 02, 2024 9: 49am NEW START - NO LABS - AVD December 08, 2024 8:24am NEW START - NO LABS - AVD December 8:15am 2 WKS - LABS - AVD December 22, 2024 8:16am Reason for Visit Admit Date Hodgkin lymphoma December 02, 2024 9: 49am Encounter for chemotherapy management Se ptember 2024 8:24am Hodgkin lymphoma December 08, 2024 8:24am Encounter for chemotherapy management Se ptember 2024 8:16am Hodgkin lymphoma December 22, 2024 8:16am Chief Complaint Admit Date HL December 02, 2024 9: 49am NEW START - NO LABS - AVD December 08, 2024 8:24am 2 WKS - LABS - AVD December 22, 2024 8:16am NEW START - NO LABS - AVD October 1st, 2 025 8:45am 2 WKS - LABS - AVD January 05, 2025 8: 47am Reason for Visit Admit Date Hodgkin lymphoma December 02, 2024 9: 49am Encounter for chemotherapy management Se [email or web address] 8:24am Hodgkin lymphoma December 08, 2024 8:24am Encounter for chemotherapy management Se ptember 2024 8:16am Hodgkin lymphoma December 22, 2024 8:16am Hodgkin lymphoma January 05, 2025 8: 47am Chief Complaint Admit Date HL December 02, 2024 9: 49am NEW START - NO LABS - AVD December 08, 2024 8:24am 2 WKS - LABS - AVD December 22, 2024 8:16am 2 WKS - LABS - AVD January 05, 2025 8: 47am NEW START - NO LABS - AVD January 19, 2025 8:45am 2 WKS - LABS - AVD January 19, 2025 8 :47am Reason for Visit Admit Date Hodgkin lymphoma December 02, 2024 9: 49am Encounter for chemotherapy management Se [email or web address] 8:24am Hodgkin lymphoma December 08, 2024 8:24am Encounter for chemotherapy management Se ptember 2024 8:16am Hodgkin lymphoma December 22, 2024 8:16am Hodgkin lymphoma January 05, 2025 8: 47am Encounter for chemotherapy management Oc tober 2024 8:47am Hodgkin lymphoma January 19, 2025 8 :47am Additional Source Comments INFORMATION SOURCE (unrecogn ized section and content) DATE CREATED AUTHOR 09/08/2019 [facility] DATE CREATED AUTHOR AUTHOR'S ORGANIZ ATION 05/08/2021 [facility] DATE CREATED AUTHOR AUTHOR'S ORGANIZ ATION 02/17/2025 [facility] Goals (unrecognized section and content) Goals may be documented in a n alternate sectionGoals may be documented in an alternate sectionGoals may be documented in an alternate sectionGoals may be documented in an alternate sectionGoals may be documented in an alternate sectionGoals may be documented in an alternate sectionGoals may be documented in an alternate sectionGoals may be documented in an alternate section Care Teams (unrecognized sec tion and content) Team Status: Active Member Role Status Dates Dr. Gregorio Dallas MD Family Provider Active No Primary Care Physician Primary Care Provider Active Team Status: Inactive Member Role Status Dates Heydi Marroquin CNM Attending Provider Active Team Status: Inactive Member Role Status Dates No Primary Care Physician Primary Care Provider Active Heydi Marroquin CNM Attending Provider, Referring Pr ovider Active Team Status: Active Member Role/Relationship Status Dates No Primary Care Physician Primary Care Provider Active Team Status: Inactive Member Role/Relationship Status Dates No Primary Care Physician Primary Care Provider Active Start: December 02, 2024 End: December 02, 2024 No Primary Care Physician Referring Provider Active Start: December 02, 2024 End: December 02, 2024 Dr. Candice Aguirre MD Attending Provider Active Start: December 02, 2024 End: December 02, 2024 Team Status: Active Member Role/Relationship Status Dates No Primary Care Physician Primary Care Provider Active Start: December 02, 2024 Dr. Candice Aguirre MD Attending Provider Active Start: December 02, 2024 Dr. Candice Aguirre MD Referring Provider Active Start: December 02, 2024 Team Status: Inactive Member Role/Relationship Status Dates No Primary Care Physician Primary Care Provider Active Start: December 08, 2024 End: December 08, 2024 No Primary Care Physician Referring Provider Active Start: December 08, 2024 End: December 08, 2024 Christy Horton LOAN SERVICES PROFESSIONAL, LOAN SERVICES PROFESSIONAL-C Attending Provider Active Start: December 08, 2024 End: December 08, 2024 Team Status: Active Member Role/Relationship Status Dates No Primary Care Physician Primary Care Provider Active Start: December 08, 2024 Dr. Candice Aguirre MD Attending Provider Active Start: December 08, 2024 Dr. Candice Aguirre MD Referring Provider Active Start: December 08, 2024 Team Status: Active Member Role/Relationship Status Dates No Primary Care Physician Primary care physician Activ e Team Status: Inactive Member Role/Relationship Status Dates No Primary Care Physician Primary care physician Activ e Start: December 02, 2024 End: December 02, 2024 No Primary Care Physician Referring Provider Active Start: December 02, 2024 End: December 02, 2024 Dr. Candice Aguirre MD Attending physician Active Start: December 02, 2024 End: December 02, 2024 Team Status: Inactive Member Role/Relationship Status Dates No Primary Care Physician Primary care physician Activ e Start: December 08, 2024 End: December 08, 2024 No Primary Care Physician Referring Provider Active Start: December 08, 2024 End: December 08, 2024 Christy Horton NP, LOAN SERVICES PROFESSIONAL-C Attending physician Active Start: December 08, 2024 End: December 08, 2024 Team Status: Active Member Role/Relationship Status Dates No Primary Care Physician Primary care physician Activ e Start: December 22, 2024 Dr. Candice Aguirre MD Attending physician Active Start: December 22, 2024 Dr. Candice Aguirre MD Referring Provider Active Start: December 22, 2024 Team Status: Inactive Member Role/Relationship Status Dates No Primary Care Physician Primary care physician Activ e Start: December 22, 2024 End: December 22, 2024 No Primary Care Physician Referring Provider Active Start: December 22, 2024 End: December 22, 2024 Christy Horton LOAN SERVICES PROFESSIONAL, LOAN SERVICES PROFESSIONAL-C Attending physician Active Start: December 22, 2024 End: December 22, 2024 Team Status: Inactive Member Role/Relationship Status Dates No Primary Care Physician Primary care physician Activ e Start: December 22, 2024 End: December 22, 2024 No Primary Care Physician Referring Provider Active Start: December 22, 2024 End: December 22, 2024 Christy Horton LOAN SERVICES PROFESSIONAL, LOAN SERVICES PROFESSIONAL-C Attending physician Active Start: December 22, 2024 End: December 22, 2024 Team Status: Active Member Role/Relationship Status Dates No Primary Care Physician Primary care physician Activ e Start: January 05, 2025 Dr. Candice Aguirre MD Attending physician Active Start: January 05, 2025 Dr. Candice Aguirre MD Referring Provider Active Start: January 05, 2025 Team Status: Inactive Member Role/Relationship Status Dates No Primary Care Physician Primary care physician Activ e Start: January 05, 2025 End: January 05, 2025 No Primary Care Physician Referring Provider Active Start: January 05, 2025 End: January 05, 2025 Dr. Candice Aguirre MD Attending physician Active Start: January 05, 2025 End: January 05, 2025 Team Status: Inactive Member Role/Relationship Status Dates No Primary Care Physician Primary care physician Activ e Start: January 05, 2025 End: January 05, 2025 No Primary Care Physician Referring Provider Active Start: January 05, 2025 End: January 05, 2025 Dr. Candice Aguirre MD Attending physician Active Start: January 05, 2025 End: January 05, 2025 Team Status: Active Member Role/Relationship Status Dates No Primary Care Physician Primary care physician Activ e Start: January 19, 2025 Dr. Candice Aguirre MD Attending physician Active Start: January 19, 2025 Dr. Candice Aguirre MD Referring Provider Active Start: January 19, 2025 Team Status: Inactive Member Role/Relationship Status Dates No Primary Care Physician Primary care physician Activ e Start: January 19, 2025 End: January 19, 2025 No Primary Care Physician Referring Provider Active Start: January 19, 2025 End: January 19, 2025 Christy Horton NP, LOAN SERVICES PROFESSIONAL-C Attending physician Active Start: January 19, 2025 End: January 19, 2025 FOR RECORDS PERTAINING TO PATIENTS WHO ARE [...] BE BASED ON THE PRIMARY CLINICAL RECORDS. [employer] provides no warranty or guarantee of the accuracy or completeness of information in this document.
[2025-03-30 11:25] LABS: Mucous, Urine 0 SEEN /hpf (<or=2+); Red Blood Cells-Urine 0 SEEN /hpf (0-5); Squamous Epithelial Cells - UA 0 SEEN /hpf (5-10)
[2025-03-30 11:33] LABS: Color, Urine Yellow (Yellow); Glucose, Dipstick Normal (Normal); Ketone-Dipstick Negative (Negative); Leukocyte Esterase-Dipstick Negative /ul (Negative); Nitrite-Dipstick Negative (Negative); Occult Blood-Urine Negative /ul (Negative); Protein-Dipstick 15 mg/dl (Negative); Specific Gravity, Urine 1.010 (1.002-1.030); Urine Bilirubin Dipstick Negative (Negative)
== END 2025-03-30 12:24 | disposition home or self-care (01) ==
PROVIDERS: Emergency Provider Student in an Organized Health Care Education/Training Program; PCP Family Medicine; Visit Provider Student in an Organized Health Care Education/Training Program
DX: J10.1 Influenza due to other identified influenza virus with other respiratory manifestations (principal); C81.90 Hodgkin lymphoma, unspecified, unspecified site; D72.819 Decreased white blood cell count, unspecified; E78.5 Hyperlipidemia, unspecified
CPT/HCPCS: 71046; 80048; 81001; 81025; 83605; 85025; 87040; 93005; 96360; 96361; 99284; A4216